=== PATIENT | male | born 1945 | race Caucasian/White ===

== ENCOUNTER 2023-02-23 02:32 | Outpatient (REF) | payer MEDICARE, MEDICAID, SELFPAY ==
[2023-02-23 10:53] LABS: Basophils Absolute Auto 0.1 10^3/uL (0.0-0.1); Eosinophils Absolute Auto 0.1 10^3/uL (0.0-0.7); Hematocrit 35.5 % (42.0-54.0); Hemoglobin 11.9 g/dL (14.0-18.0); Immature Granulocytes Abs Auto 0.01 10^3/uL (0.00-0.03); Immature Granulocytes Pct Auto 0.1 % (0.0-0.5); Mean Corpuscular HGB Conc 33.5 g/dL (29.9-35.2); Mean Corpuscular Hemoglobin 33.1 pg (25.9-34.0); Mean Corpuscular Volume 98.9 fL (80.0-94.0); Monocytes Absolute Auto 0.5 10^3/uL (0.3-0.8); Monocytes Percent Auto 6.5 % (1.7-12.0); Neutrophils Absolute Auto 5.4 10^3/uL (1.4-6.5); Neutrophils Percent Auto 76.4 % (43.0-75.0); Platelet Count 183 10^3/uL (150-450); Red Blood Count 3.59 10^6/uL (4.70-6.10); Red Cell Distribution Width 13.5 % (11.0-15.0); White Blood Count 7.1 10^3/uL (4.0-11.0)
[2023-02-23 11:02] LABS: Calcium 8.4 mg/dL (8.5-10.1); Carbon Dioxide 24.5 mmol/L (21.0-32.0); Chloride 105 mmol/L (98-107); Estimated GFR (African America >60 (>=60); Estimated GFR (Non-African Ame 50 (>=60); Glucose 152 mg/dL (74-106); Potassium 3.5 mmol/L (3.5-5.1); Sodium 139 mmol/L (136-145)
== END 2023-02-23 02:33 | disposition home or self-care (01) ==
LOC: LAB 02:32
PROVIDERS: PCP Family Medicine; Visit Provider Family Medicine
DX: E63.9 Nutritional deficiency, unspecified (principal); R41.3 Other amnesia
CPT/HCPCS: 36415; 80048; 85025

== ENCOUNTER 2023-02-26 01:49 | Outpatient (REF) | payer MEDICARE, MEDICAID, SELFPAY ==
[2023-02-26 10:45] LABS: Basophils Percent Auto 0.5 % (0.2-2.0); Eosinophils Absolute Auto 0.2 10^3/uL (0.0-0.7); Eosinophils Percent Auto 2.2 % (0.9-7.0); Hematocrit 34.1 % (42.0-54.0); Hemoglobin 11.3 g/dL (14.0-18.0); Immature Granulocytes Abs Auto 0.02 10^3/uL (0.00-0.03); Immature Granulocytes Pct Auto 0.3 % (0.0-0.5); Lymphocytes Absolute Auto 1.3 10^3/uL (1.2-3.8); Lymphocytes Percent Auto 17.7 % (20.5-60.0); Mean Corpuscular HGB Conc 33.1 g/dL (29.9-35.2); Mean Corpuscular Hemoglobin 33.1 pg (25.9-34.0); Mean Platelet Volume 9.7 fL (9.5-13.5); Monocytes Absolute Auto 0.5 10^3/uL (0.3-0.8); Neutrophils Absolute Auto 5.5 10^3/uL (1.4-6.5); Neutrophils Percent Auto 72.3 % (43.0-75.0); Platelet Count 171 10^3/uL (150-450); Red Blood Count 3.41 10^6/uL (4.70-6.10); Red Cell Distribution Width 13.7 % (11.0-15.0); White Blood Count 7.6 10^3/uL (4.0-11.0)
[2023-02-26 11:20] LABS: Anion Gap 14.7; BUN Creatinine Ratio 28.8; Calcium 8.6 mg/dL (8.5-10.1); Carbon Dioxide 20.8 mmol/L (21.0-32.0); Chloride 109 mmol/L (98-107); Estimated GFR (African America >60 (>=60); Estimated GFR (Non-African Ame 50 (>=60); Glucose 160 mg/dL (74-106); Potassium 3.5 mmol/L (3.5-5.1); Sodium 141 mmol/L (136-145)
== END 2023-02-26 01:50 | disposition home or self-care (01) ==
LOC: LAB 01:49
PROVIDERS: PCP Family Medicine; Visit Provider Family Medicine
DX: I12.9 Hypertensive chronic kidney disease with stage 1 through stage 4 chronic kidney disease, or unspecified chronic kidney disease (principal); N18.9 Chronic kidney disease, unspecified
CPT/HCPCS: 36415; 80048; 85025

== ENCOUNTER 2023-03-07 01:46 | Outpatient (REF) | payer MEDICARE, MEDICAID, SELFPAY ==
[2023-03-07 08:59] LABS: Anion Gap 14.5; BUN Creatinine Ratio 25.9; Chloride 108 mmol/L (98-107); Estimated GFR (African America 58 (>=60); Estimated GFR (Non-African Ame 48 (>=60); Glucose 112 mg/dL (74-106); Potassium 3.5 mmol/L (3.5-5.1); Sodium 141 mmol/L (136-145)
== END 2023-03-07 01:47 | disposition home or self-care (01) ==
LOC: LAB 01:46
PROVIDERS: PCP Family Medicine; Visit Provider Family Medicine
DX: Z79.899 Other long term (current) drug therapy (principal)
CPT/HCPCS: 36415; 80048

== ENCOUNTER 2023-08-24 03:36 | Outpatient (REF) | payer MEDICARE, MEDICAID, SELFPAY ==
[2023-08-24 08:06] LABS: Basophils Absolute Auto 0.1 10^3/uL (0.0-0.1); Basophils Percent Auto 0.6 % (0.2-2.0); Eosinophils Absolute Auto 0.2 10^3/uL (0.0-0.7); Eosinophils Percent Auto 1.9 % (0.9-7.0); Hematocrit 36.7 % (42.0-54.0); Hemoglobin 11.9 g/dL (14.0-18.0); Immature Granulocytes Abs Auto 0.02 10^3/uL (0.00-0.03); Immature Granulocytes Pct Auto 0.3 % (0.0-0.5); Lymphocytes Absolute Auto 1.1 10^3/uL (1.2-3.8); Lymphocytes Percent Auto 14.4 % (20.5-60.0); Mean Corpuscular HGB Conc 32.4 g/dL (29.9-35.2); Mean Corpuscular Hemoglobin 32.2 pg (25.9-34.0); Mean Corpuscular Volume 99.2 fL (80.0-94.0); Monocytes Absolute Auto 0.8 10^3/uL (0.3-0.8); Monocytes Percent Auto 10.5 % (1.7-12.0); Neutrophils Absolute Auto 5.7 10^3/uL (1.4-6.5); Neutrophils Percent Auto 72.3 % (43.0-75.0); Platelet Count 155 10^3/uL (150-450); Red Cell Distribution Width 12.6 % (11.0-15.0); White Blood Count 7.9 10^3/uL (4.0-11.0)
[2023-08-24 10:28] LABS: Anion Gap 8.8; BUN Creatinine Ratio 20.6; Calcium 8.7 mg/dL (8.5-10.1); Carbon Dioxide 25.9 mmol/L (21.0-32.0); Chloride 104 mmol/L (98-107); Chol HDL Ratio 2.1; Cholesterol 107 mg/dL (<=200); Estimated GFR (African America 49 (>=60); Estimated GFR (Non-African Ame 41 (>=60); Glucose 110 mg/dL (74-106); HDL Cholesterol 52 mg/dL (40-60); Potassium 3.7 mmol/L (3.5-5.1); Sodium 135 mmol/L (136-145); Triglycerides 45 mg/dL (<=150)
== END 2023-08-24 03:37 | disposition home or self-care (01) ==
LOC: LAB 03:36
PROVIDERS: PCP Family Medicine; Visit Provider Family Medicine
DX: E78.5 Hyperlipidemia, unspecified (principal); I10 Essential (primary) hypertension; I12.9 Hypertensive chronic kidney disease with stage 1 through stage 4 chronic kidney disease, or unspecified chronic kidney disease
CPT/HCPCS: 36415; 80048; 80061; 85025

== ENCOUNTER 2023-08-31 02:38 | Outpatient (REF) | payer MEDICARE, MEDICAID, SELFPAY ==
--- OUTSIDE RECORDS SUMMARY | 2023-08-31 02:41 | XMS_ITS | CCD ---
Author Name Unknown Address [id number] [place] [address] Organization [facility] Care Team Providers Care Weeder Name Role Phone ARCHIE HERNÁNDEZ Unavailable Unavailable CARLOS ALCANTAR Unavailable Unavailable ARCHIE HERNÁNDEZ Unavailable Unavailable CARLOS ALCANTAR Unavailable Unavailable NONE, XXXX Primary Care Physician Unavailab JJ Boyer Admitting Unavailable JJ DACOSTA Attending Unavailable ORTIZ, DR GONZALEZ Primary Care Unavailable JJ DACOSTA Consulting Unavailable MIS, DR CORBIN Admitting Unavailable MIS, DR CORBIN Attending Unavailable ORITZ, DR GONZALEZ Primary Care Unavailable MISC, DR CORBIN Consulting Unavailable Mir RING Attending Unavailable Mir RING Attending Unavailable Mir RING Attending Unavailable Unavailable Unavailable Unavailable Allergies Allergy Classification Reported Allergen(s) Allergy Type Date of Onset Reaction(s) Facility (1 source) No Known Medication Allergies; Translations: [No Known Medication Allergies] Propensity to adverse reactions (disorder) [facility] Repository Medications Current Medications Medication Drug Class(es) Dates Sig (Normalized) Sig (Original) acetaminophen 500 mg oral tablet (5 sources) Start: 05-20-2021 take 1 mg by mouth every six hours acetaminophen 500 mg Tab mg tab(s), Oral, q6hr, Refills(s) 0 Start Date: 05/20/21 Status: Ordered Start: 08-15-2019 take 500 mg by mouth every four hours Acetaminophen Active 500 MG Oral Q4H 0 August 15, 2019 12:50pm allopurinol 300 mg oral tablet (5 sources) Xanthine Oxidase Inhibitor Start: 05-20-2021 take 1 mg by mouth once daily allopurinol 300 mg Tab mg tab(s), Oral, Daily, Refills(s) 0 Start Date: 05/20/21 Status: Ordered Start: 08-15-2019 take 300 mg by mouth once ced y Allopurinol Active 300 MG Oral Daily 0 August 15, 2019 12:50pm aluminum hydroxide 40 mg/ml / magnesium hydroxide 40 mg/ml / simethicone 4 mg/ml oral suspension (2 sources) Start: 08-15-2019 take 1 mL by mouth every four hours Alum-Mag Hydroxide-Simeth Active 30 ML Oral Q4H 0 August 15, 2019 12:55pm amLODIPine 10 mg oral tablet (5 sources) Dihydropyridine Calcium Channel Carleen Start: 05-20-2021 take 1 mg by mouth once daily amLODIPine 10 mg Tab mg tab(s), Oral, Daily, Refills(s) 0 Start Date: 05/20/21 Status: Ordered Start: 08-15-2019 take 10 mg by mouth once daily at bedtime Amlodipine Active 10 MG Oral Daily at bedtime 0 August 15, 2019 12:50pm aspirin 81 mg chewable tablet (5 sources) Platelet Aggregation Inhibitor, Nonsteroidal Anti-inflammatory Drug Start: 05-20-2021 aspirin 81 mg Audrey w Tab mg tab(s), Chewed, Daily, Refills(s) 0 Start Date: 05/20/21 Status: Ordered Start: 08-15-2019 take 81 mg by mouth once daily Aspirin Active 81 MG Oral Daily 0 August 15, 2019 12:50pm atorvastatin 10 mg oral tablet (5 sources) HMG-CoA Reductase Inhibitor Start: 05-20-2021 take 1 mg by mouth once daily atorvastatin 10 mg Tab mg tab(s), Oral, Daily, Refills(s) 0 Start Date: 05/20/21 Status: Ordered Start: 08-15-2019 take 80 mg by mouth once daily in the evening Atorvastatin Active 80 MG Oral Every evening 0 August 15, 2019 12:50pm bisacodyl 10 mg rectal suppository (5 sources) Stimulant Laxative Start: 11-14-2021 take 10 mg rectal route once daily as needed for constipation bisacodyl 10 mg Supp 10 mg = 1 supp, Rectal, Daily, PRN for constipation, # 10 supp, Refills(s) 0 Start Date: 11/14/21 Status: Ordered Start: 08-15-2019 take 10 mg rectal ro yarelis once daily Bisacodyl Active 10 MG Rectal Daily 0 August 15, 2019 12:50pm citalopram 20 mg oral tablet (5 sources) Serotonin Reuptake Inhibitor Start: 05-20-2021 take 1 mg by mouth once daily citalopram 20 mg Tab mg tab(s), Oral, Daily, Refills(s) 0 Start Date: 05/20/21 Status: Ordered Start: 08-15-2019 take 20 mg by mouth once daily Citalopram Active 20 MG Oral Daily 0 August 15, 2019 12:50pm clopidogrel 75 mg oral tablet (5 sources) [id number] Platelet Inhibitor Start: 03-19-2023 take 1 mg by mouth once daily Plavix 75 mg Tab mg tab(s), Oral, Daily, Refills(s) 0 Start Date: 03/19/23 Status: Ordered Start: 05-20-2021 take 1 mg by mouth once daily clopidogrel 75 mg Tab mg tab(s), Oral, Daily, Refills(s) 0 Start Date: 05/20/21 Status: Ordered Start: 08-15-2019 take 75 mg by mouth once daily Clopidogrel Active 75 MG Oral Daily 0 August 15, 2019 12:50pm Docusate (5 sources) Start: 05-20-2021 docusate Refil ls(s) 0 Start Date: 05/20/21 Status: Ordered Start: 08-15-2019 take 100 mg by mouth twice elan ly Docusate Sodium Active 100 MG Oral Twice daily 0 August 15, 2019 12:50pm donepezil hydrochloride 10 mg oral tablet (3 sources) Start: 05-20-2021 take 1 mg by mouth once daily at bedtime donepezil 10 mg Tab mg tab(s), Oral, Once a day (at bedtime), Refills(s) 0 Start Date: 05/20/21 Status: Ordered Pepcid (3 sources) Histamine-2 Receptor Antagonist Start: 05-20-2021 Pepcid Refills(s) 0 Start Date: 05/20/21 Status: Ordered furosemide 20 mg oral tablet (3 sources) Loop Diuretic Start: 05-20-2021 take 1 mg by mouth once daily furosemide 20 mg Tab mg tab(s), Oral, Daily, Refills(s) 0 Start Date: 05/20/21 Status: Ordered Mliagros-Tussin DM 10 mg-100 mg/5 mL oral liquid (1 source) Start: 03-19-2023 take 1 mL by mouth every four hours Milagros-Jimin DM 10 mg-100 mg/5 mL oral liquid mL, Oral, q4hr, Refill(s) 0 Start Date: 03/19/23 Status: Ordered hydrALAZINE hydrochloride 10 mg oral tablet (3 sources) Arteriolar Vasodilator Start: 05-20-2021 take 1 mg by mouth four times daily hydrALAZINE 10 mg Tab mg tab(s), Oral, QID, Refills(s) 0 Start Date: 05/20/21 Status: Ordered ammonium lactate 120 mg/ml topical cream (3 sources) Start: 05-20-2021 ammonium lacta te Top 12% Crm Topical, BID, Refill(s) 0 Start Date: 05/20/21 Status: Ordered Start: 05-20-2021 ammonium lacta te Top 12% Crm Topical, BID, Refill(s) 0 Start Date: 05/20/21 Status: Ordered lidocaine hydrochloride 20 mg/ml mucous membrane topical solution (2 sources) Antiarrhythmic, Amide Local Anesthetic Start: 08-15-2019 Lidocaine Hcl Active 15 ML Mucous Membrane Once 0 August 15, 2019 12:55pm loperamide hydrochloride 2 mg oral capsule (1 source) Opioid Agonist Start: 03-19-2023 take 1 mg by mouth every four hours loperamide 2 mg Cap mg cap(s), Oral, q4hr, Refills(s) 0 Start Date: 03/19/23 Status: Ordered losartan potassium 100 mg oral tablet (3 sources) Angiotensin 2 Receptor Carleen Start: 05-20-2021 take 1 mg by mouth once daily losartan 100 mg Tab mg tab(s), Oral, Daily, Refills(s) 0 Start Date: 05/20/21 Status: Ordered Maalox Advanced (3 sources) Start: 05-20-2021 Maalox Advanced Refill(s) 0 Start Date: 05/20/21 Status: Ordered Melatonin (3 sources) Start: 05-20-2021 melatonin Once a day (at bedtime), Refills(s) 0 Start Date: 05/20/21 Status: Ordered 24 hr metoprolol succinate 50 mg extended release oral tablet (3 sources) beta-Adrenergic Carleen Start: 05-20-2021 take 1 mg by mouth once daily metoprolol 50 mg ER Tab mg tab(s), Oral, Daily, Refills(s) 0 Start Date: 05/20/21 Status: Ordered Start: 08-15-2019 take 75 mg by mouth twice ced y Metoprolol Tartrate Active 75 MG Oral Twice daily 0 August 15, 2019 12:50pm Multivitamin With Folic Acid (2 sources) Start: 08-15-2019 take 1 tablet by mouth once daily Multivitamin With Folic Acid Active 1 TAB Oral Daily 0 August 15, 2019 12:50pm potassium chloride 20 meq extended release oral tablet (3 sources) Start: 05-20-2021 take 1 tablet by mouth twice daily potassium chloride 20 mEq ER Tab mEq tab(s), Oral, BID, Refills(s) 0 Start Date: 05/20/21 Status: Ordered Senna Leaves (1 source) Start: 05-20-2021 take 1 mg by mouth once daily at bedtime senna 8.6 mg Tab mg tab(s), Oral, Once a day (at bedtime), Refills(s) 0 Start Date: 05/20/21 Status: Ordered sennosides, retirement 8.6 mg oral tablet (4 sources) Start: 05-20-2021 take 1 mg by mouth once daily at bedtime senna 8.6 mg Tab mg tab(s), Oral, Once a day (at bedtime), Refills(s) 0 Start Date: 05/20/21 Status: Ordered Start: 08-15-2019 take 2 tablets by [facility] once daily Sennosides Active 2 TAB Oral DAILY@12 0 August 15, 2019 12:55pm terazosin 1 mg oral capsule (2 sources) alpha-Adrenergic Carleen Start: 08-15-2019 take 1 mg by mouth twice daily Terazosin Active 1 MG Oral Twice daily 0 August 15, 2019 12:50pm 24 hr tolterodine tartrate 4 mg extended release oral capsule (1 source) Cholinergic Muscarinic Antagonist Start: 03-19-2023 take 1 mg by mouth once daily tolterodine 4 mg Cap-ER mg cap(s), Oral, Daily, Refills(s) 0 Start Date: 03/19/23 Status: Ordered traZODone hydrochloride 100 mg oral tablet (5 sources) Serotonin Reuptake Inhibitor Start: 05-20-2021 take 1 mg by mouth twice daily traZODONE 100 mg Tab mg tab(s), Oral, BID, Refills(s) 0 Start Date: 05/20/21 Status: Ordered Start: 08-15-2019 take 50 mg by mouth once daily at bedtime Trazodone Active 50 MG Oral Daily at bedtime 0 August 15, 2019 12:55pm Vitamin B 12 (6 sources) Vitamin B12 Start: 03-19-2023 Vitamin B12 Re fills(s) 0 Start Date: 03/19/23 Status: Ordered Start: 05-20-2021 Vitamin B12 Re fills(s) 0 Start Date: 05/20/21 Status: Ordered Start: 08-15-2019 take 1000 ug by mout h once daily in the morning Cyanocobalamin (Vitamin B-12) Active 1000 MCG Oral Every morning 0 August 15, 2019 12:50pm Problems Problem Classification Problem Date Documented Date Episodic/Chronic Acute cerebrovascular disease (3 sources) Cerebral infarction, unspecified; Translations: [Cerebrovascular accident] Onset: 8 Chronic Administrative/social admission (2 sources) Other reduced mobility; Translations: [Other reduced mobility] Episodic Blindness and vision defects (2 sources) Blurring of visual image; 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] Episodic Chronic kidney disease (5 sources) Chronic kidney disease stage 3; Translations: [Chronic kidney disease stage 4] 05-20-2021 Chronic Coronary atherosclerosis and other heart disease (1 source) Coronary atherosclerosis and other heart disease Onset: 8 Crushing injury or internal injury (2 sources) Injury of kidney; Translations: [Acute kidney injury] Episodic Delirium dementia and amnestic and other cognitive disorders (5 sources) Dementia; Translations: [Rapidly progressive dementia] 05-20-2021 Chronic Disorders of lipid metabolism (3 sources) Hyperlipidemia 05-20-2021 Chronic Esophageal disorders (3 sources) Gastroesophageal reflux disease 05-20-2021 Chronic Essential hypertension (6 sources) Essential (primary) hypertension; Translations: [Hypertensive disorder] Onset: 8 05-20-2021 Chronic Essential hypertension (2 sources) Essential hypertension Onset: 8 Fluid and electrolyte disorders (2 sources) Acute hypokalemia; Translations: [Diuretic-induced hypokalemia] Episodic Genitourinary symptoms and ill-defined conditions (10 sources) Incontinence without sensory awareness; 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] Onset: 2 Chronic Genitourinary symptoms and ill-defined conditions (4 sources) Increased frequency of urination; Translations: [Frequency of micturition] Onset: 2 Episodic Gout and other crystal arthropathies (4 sources) Chronic gout due to renal impairment, multiple sites, without tophus (tophi); Translations: [CHR GOUT RENL IMPR MX SITE NO TOPH] Onset: 3 Chronic Hyperplasia of prostate (11 sources) Benign prostatic hyperplasia; Translations: [Benign prostatic hypertrophy with outflow obstruction] Onset: 2 Chronic Hypertension with complications and secondary hypertension (4 sources) Chronic kidney disease due to hypertension; Translations: [Hypertensive urgency ] Chronic Mood disorders (2 sources) Depressive disorder; 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 Nutritional deficiencies (2 sources) Vitamin B12 deficiency (non anemic); Translations: [Cobalamin C disease] Episodic Other and ill-defined heart disease (3 sources) Heart disease 05-20-2021 Chronic Other circulatory disease (2 sources) History of cerebrovascular accident; Translations: [History of recurrent transient ischemic attacks] Episodic Other connective tissue disease (3 sources) Muscle weakness 05-20-2021 Episodic Other diseases of kidney and ureters (1 source) Urinary tract obstruction; Translations: [Other obstructive and reflux uropathy] Onset: 2 Episodic Other lower respiratory disease (2 sources) Dyspnea; Translations: [Increasing shortness of breath] Episodic Residual codes; unclassified (2 sources) Altered mental status; Translations: [Acute alteration in mental status] Episodic Residual codes; unclassified (2 sources) Pain; Translations: [Diffuse pain] Episodic Residual codes; unclassified (3 sources) Amnesia 05-20-2021 Episodic Residual codes; unclassified (3 sources) Insomnia 05-20-2021 Episodic Transient cerebral ischemia (2 sources) Transient cerebral ischemia; Translations: [Transient ischemic attack] Chronic Unclassified (1 source) Abnormal electrocardiogram [ECG] [EKG] / R94.31(ICD-9) Onset: 8 Unclassified (1 source) Encounter for preprocedural cardiovascular examination / Z01.810(ICD-9) Onset: 8 Unclassified (2 sources) Cerebral infarction, unspecified / I63.9(ICD-9) Onset: 8 Unclassified (1 source) Hypokalemia / E87.6(ICD-9) Onset: 8 Unclassified (1 source) Shortness of breath / R06.02(ICD-9) Onset: 8 Unclassified (1 source) Pure hypercholesterolemia, unspecified / E78.00(ICD-9) Onset: 8 Unclassified (1 source) Other fatigue / R53.83(ICD-9) Onset: 8 Unclassified (1 source) Unspecified osteoarthritis, unspecified site / M19.90(ICD-9) Onset: 8 Unclassified (2 sources) Patient encounter status; Translations: [Encounter for deep vein thrombosis (DVT) prophylaxis] Results Test Name Value Interpretation Reference Range Facility [facility]20 [facility] [id number] D:127 Normal [facility] Ambulatory Visit Summaryon 0 03-19-2023 Ambulatory Visit Summary BRAD HUTCHISON Doretha :1945 Visit Date:03/19/2023 Ambulatory Visit Instructions Your Diagnosis BPH with urinary obstruction Urge incontinence Incontinence without sensory awareness Your Care Team Attending Physician - ELISA HALEY, Mir Bender Primary Care Physician - NONE, XXXX This Is Your Medications List Contact prescribing physician if questions or concerns acetaminophen (acetaminophen 500 mg Tab) allopurinol (allopurinol 300 mg Tab) amlodipine (amLODIPine 10 mg Tab) ammonium lactate topical (ammonium lactate Top 12% Crm) aspirin (aspirin 81 mg Chew Tab) atorvastatin (atorvastatin 10 mg Tab) bisacodyl (bisacodyl 10 mg Supp) calcium carbonate-simethicone (Maalox Advanced) citalopram (citalopram 20 mg Tab) clopidogrel (Plavix 75 mg Tab) cyanocobalamin (Vitamin B12) cyanocobalamin (Vitamin B12) dextromethorphan-guaife nesin (Milagros-Tussin DM 10 mg-100 mg/5 mL oral liquid) docusate donepezil (donepezil 10 mg Tab) famotidine (Pepcid) furosemide (furosemide 20 mg Tab) hydrALAZINE (hydrALAZINE 10 mg Tab) loperamide (loperamide 2 mg Cap) losartan (losartan 100 mg Tab) melatonin potassium chloride (potassium chloride 20 mEq ER Tab) senna (senna 8.6 mg Tab) tolterodine (tolterodine 4 mg Cap-ER) trazodone (traZODONE 100 mg Tab) Procedures Performed TURP - Redo transurethral resection of prostate (06/30/2021), TURP - Transurethral resection of prostate (01/29/2018), UDS - Urodynamics (12/25/2017). Discharge Vitals Heart Rate (Peripheral) 68 Respiratory Rate 16 Blood Pressure 106/70 Height 173 cm Height 68 in Weight 92.4 kg Weight 203.28 lb BMI 30.87 What to do next You Need to Schedule the Following Appointments Follow Up with ELISA HALEY, FATOUMATA Gabriel When: Comments: 1 year Where: [facility] [address], [place] [address] [phone] Medications What How Much When Instructions Unchanged acetaminophen (acetaminophen 500 mg Tab) By Mouth Every 6 hours Contact prescribing physician if questions or concerns Unchanged allopurinol (allopurinol 300 mg Tab) By Mouth Every day Contact prescribing physician if questions or concerns Unchanged amlodipine (amLODIPine 10 mg Tab) By Mouth Every day Contact prescribing physician if questions or concerns Unchanged ammonium lactate topical (ammonium lactate Top 12% Crm) Topical 2 times a day Contact prescribing physician if questions or concerns Unchanged aspirin (aspirin 81 mg Chew Tab) Chewed Every day Contact prescribing physician if questions or concerns Unchanged atorvastatin (atorvastatin 10 mg Tab) By Mouth Every day Contact prescribing physician if questions or concerns Unchanged bisacodyl (bisacodyl 10 mg Supp) 1 Suppositories By rectum Every day as needed for for constipation Contact prescribing physician if questions or concerns Unchanged calcium carbonate-simethicone (Maalox Advanced) Contact prescribing physician if questions or concerns Unchanged citalopram (citalopram 20 mg Tab) By Mouth Every day Contact prescribing physician if questions or concerns Unchanged clopidogrel (Plavix 75 mg Tab) By Mouth Every day Contact prescribing physician if questions or concerns Unchanged cyanocobalamin (Vitamin B12) Contact prescribing physician if questions or concerns Unchanged cyanocobalamin (Vitamin B12) Contact prescribing physician if questions or concerns Unchanged dextromethorphan-guaife nesin (Milagros-Tussin DM 10 mg-100 mg/ 5 mL oral liquid) By Mouth Every 4 hours Contact prescribing physician if questions or concerns Unchanged docusate Contact prescribing physician if questions or concerns Unchanged donepezil (donepezil 10 mg Tab) By Mouth Once a day (at bedtime) Contact prescribing physician if questions or concerns Unchanged famotidine (Pepcid) Contact prescribing physician if questions or concerns Unchanged furosemide (furosemide 20 mg Tab) By Mouth Every day Contact prescribing physician if questions or concerns Unchanged hydrALAZINE (hydrALAZINE 10 mg Tab) By Mouth 4 times a day Contact prescribing physician if questions or concerns Unchanged loperamide (loperamide 2 mg Cap) By Mouth Every 4 hours Contact prescribing physician if questions or concerns Unchanged losartan (losartan 100 mg Tab) By Mouth Every day Contact prescribing physician if questions or concerns Unchanged melatonin Once a day (at bedtime) Contact prescribing physician if questions or concerns Unchanged potassium chloride (potassium chloride 20 mEq ER Tab) By Mouth 2 times a day Contact prescribing physician if questions or concerns Unchanged senna (senna 8.6 mg Tab) By Mouth Once a day (at bedtime) Contact prescribing physician if questions or concerns Unchanged tolterodine (tolterodine 4 mg Cap-ER) By Mouth Every day Contact prescribing physician if questions or concerns Unchanged trazodone (traZODONE 100 mg Tab) By Mouth 2 times a day Contact prescribing physician (more content not included)... Normal [facility] Patient Educationon 03-19-20 23 Patient Education Urology Benign Prostatic Hyperplasia Benign prostatic hyperplasia (BPH) is an enlarged prostate gland that is caused by the normal aging process. The prostate may get bigger as a man gets older. The condition is not caused by cancer. The prostate is a walnut-sized gland that is involved in the production of semen. It is located in front of the rectum and below the bladder. The bladder stores urine. The urethra carries stored urine out of the body. An enlarged prostate can press on the urethra. This can make it harder to pass urine. The buildup of urine in the bladder can cause infection. Back pressure and infection may progress to bladder damage and kidney (renal) failure. What are the causes? This condition is part of the normal aging process. However, not all men develop problems from this condition. If the prostate enlarges away from the urethra, urine flow will not be blocked. If it enlarges toward the urethra and compresses it, there will be problems passing urine. What increases the risk? This condition is more likely to develop in men older than 50 years. What are the signs or symptoms? Symptoms of this condition include: ? Getting up often during the night to urinate. ? Needing to urinate frequently during the day. ? Difficulty starting urine flow. ? Decrease in size and strength of your urine stream. ? Leaking (dribbling) after urinating. ? Inability to pass urine. This needs immediate treatment. ? Inability to completely empty your bladder. ? Pain when you pass urine. This is more common if there is also an infection. ? Urinary tract infection (UTI). How is this diagnosed? This condition is diagnosed based on your medical history, a physical exam, and your symptoms. Tests will also be done, such as: ? A post-void bladder scan. This measures any amount of urine that may remain in your bladder after you finish urinating. ? A digital rectal exam. In a rectal exam, your health care provider checks your prostate by putting a lubricated, gloved finger into your rectum to feel the back of your prostate gland. This exam detects the size of your gland and any abnormal lumps or growths. ? An exam of your urine (urinalysis). ? A prostate specific antigen (PSA) screening. This is a blood test used to screen for prostate cancer. ? An ultrasound. This test uses sound waves to electronically produce a picture of your prostate gland. Your health care provider may refer you to a specialist in kidney and prostate diseases (urologist). How is this treated? Once symptoms begin, your health care provider will monitor your condition (active surveillance or watchful waiting). Treatment for this condition will depend on the severity of your condition. Treatment may include: ? Observation and yearly exams. This may be the only treatment needed if your condition and symptoms are mild. ? Medicines to relieve your symptoms, including: ? Medicines to shrink the prostate. ? Medicines to relax the muscle of the prostate. ? Surgery in severe cases. Surgery may include: ? Prostatectomy. In this procedure, the prostate tissue is removed completely through an open incision or with a laparoscope or robotics. ? Transurethral resection of the prostate (TURP). In this procedure, a tool is inserted through the opening at the tip of the penis (urethra). It is used to cut away tissue of the inner core of the prostate. The pieces are removed through the same opening of the penis. This removes the blockage. ? Transurethral incision (TUIP). In this procedure, small cuts are made in the prostate. This lessens the prostate's pressure on the urethra. ? Transurethral microwave thermotherapy (TUMT). This procedure uses microwaves to create heat. The heat destroys and removes a small amount of prostate tissue. ? Transurethral needle ablation (TUNA). This procedure uses radio frequencies to destroy and remove a small amount of prostate tissue. ? Interstitial laser coagulation (ILC). This procedure uses a laser to destroy and remove a small amount of prostate tissue. ? Transurethral electrovaporization (TUVP). This procedure uses electrodes to destroy and remove a small amount of prostate tissue. ? Prostatic urethral lift. This procedure inserts an implant to push the lobes of the prostate away from the urethra. Follow these instructions at home: ? Take [id number] and prescription medicines only as told by your health care provider. ? Monitor your symptoms for any changes. Contact your health care provider with any changes. ? Avoid drinking large amounts of liquid before going to bed or out in public. ? Avoid or reduce how much caffeine or alcohol you drink. ? Give yourself time when you urinate. ? Keep all follow-up visits. This is important. Contact a health care provider if: ? You have unexplained back pain. ? Your symptoms do not get better with treatment. ? You develop side effects from the medicine (more content not included)... Normal [facility] Urology Office/Clinic Noteon 03-19-2023 Urology Office/Clinic Note Chief Complaint urge incontinence HPI Staff 4 month f/u. Previous dx of BPH with urinary obstruction (TURP 06/30/21), urge incontinence and incontinence without sensory awareness. Tolterodine 4mg ER QD at bed time. Dysuria: no Incomplete bladder emptying: no Hematuria: no Frequency: no Urgency: no Nocturia: 1-2x Stream: no Leaking: pt states no leaking at all Post void dripping: no Wearing pads/ Depends: wears depends Urge incontinence: pt states not having accidents anymore Stress incontinence: no Incontinence without Sensory Awareness: no Abdominal pain: no Flank pain: no Sexual complaints: no History of Present Illness Tests reviewed: none I have reviewed the previous health record information and history for this patient from Dr. Ring. I have reviewed and verified the staff HPI to be accurate for this encounter. There have been no associated fever, chills, flank pain, or blood in the urine. Denies any urinary infections since last encounter. Review of Systems PHQ Score Initial Depression Screen Score: 0 ROS - Provider Constitutional: denies weight loss, denies hot flashes. Eyes: denies eye problems. Gastrointestinal: denies nausea, denies vomiting. Cardiovascular: denies chest pain or angina. Integumentary: no dryness Musculoskeletal: denies musculoskeletal symptoms. ENMT: denies otolaryngeal symptoms. Respiratory: no shortness of breath. Heme/Lymph: denies easy bleeding tendency, denies easy bruising tendency. Psychiatric: no confusion, no anxiety. Genitourinary: See HPI. Physical Exam Vitals & Measurements HR: 68(Peripheral) RR: 16 BP: 106/70 HT: 68 in HT: 173 cm WT: 92.4 kg WT: 203.28 lb BMI: 30.87 General Appearance: alert, no distress, well nourished, well developed male. Genitourinary: normal scrotum, normal testes, normal urethra, normal epididymis, normal vas deferens/spermatic cord. Flank Pain: none. Bladder: nonpalpable. Assessment/Plan 1. BPH with urinary obstruction (N40.1: Benign prostatic hyperplasia with lower urinary tract symptoms) S/p TURP 06/30/21. Pt is not on any BPH medications at this time. 2. Urge incontinence (N39.41: Urge incontinence) Pt began taking Tolterodine 4mg ER [1] and will continue this medication. Denies any recent accidents or urgency. No sample provided for UA today. Follow up in 1 year. All questions/concerns were discussed. Pt to call the office if he encounters any issues prior. Pt acknowledges understanding. 3. 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 Reports he takes himself to the bathroom. Patient does get up twice nightly and makes it to the restroom. Spoke to usp staff ([facility]), nurse stated patient is always incontinent and rarely ever voids on his own. Follow-up With When Contact Information ELISA HALEY, Mir Bender, URL [facility] [address], [place] [address]- [phone] Additional Instructions: 1 year Patient Education Benign Prostatic Hyperplasia I, Barb Valentin, personally scribed for Dr. Ring on 03/19/2023 10:54:56. . Documentation recorded by the scribe, Barb Valentin, accurately reflects the services(s) I performed and decisions made by me. Authenticated by Dr. Ring on 03/19/2023 11:00:12. Problem List/Past Medical History Ongoing BPH with urinary obstruction Incontinence without sensory awareness Urge incontinence Urinary retention Historical Amnesia BPH - benign prostatic hyperplasia CKD stage 4 Dementia GERD - Gastro-esophageal reflux disease Heart disease Hyperlipidemia Hypertension Insomnia Muscle weakness Procedure/Surgical History TURP - Redo transurethral resection of prostate (06/30/2021), TURP - Transurethral resection of prostate (01/29/2018), UDS - Urodynamics (12/25/2017). Medications acetaminophen 500 mg Tab, Oral, q6hr allopurinol 300 mg Tab, Oral, Daily amLODIPine 10 mg Tab, Oral, Daily ammonium lactate Top 12% Crm, Topical, BID aspirin 81 mg Chew Tab, Chewed, Daily atorvastatin 10 mg Tab, Oral, Daily bisacodyl 10 mg Supp, 10 mg= 1 supp, Rectal, Daily, PRN citalopram 20 mg Tab, Oral, Daily docusate donepezil 10 mg Tab, Oral, Once a day (at bedtime) furosemide 20 mg Tab, Oral, Daily Milagros-Tussin DM 10 mg-100 mg/5 mL oral liquid, Oral, q4hr hydrALAZINE 10 mg Tab, Oral, QID loperamide 2 mg Cap, Oral, q4hr losartan 100 mg Tab, Oral, Daily Maalox Advanced melatonin, Once a day (at bedtime) Pepcid Plavix 75 mg Tab, Oral, Daily potassium chloride 20 mEq ER Tab, Oral, BID senna 8.6 mg Tab, Oral, Once a day (at bedtime) tolterodine 4 mg Cap-ER, Oral, Daily traZODONE 100 mg Tab, Oral, BID Vitamin B12 Vitamin B12 Allergies No Known Medication Allergies Social History Tobacco Never (less than 100 in lifetime) Tobacco Use:. Never Smokeless Tobacco Use:., 03 (more content not included)... Normal [facility] Comment on above: Result Comment: Elec tronically Signed By: Mir RING MD\.br\Date and Time Signed: 03/19/23 11:00 EDT\.br\Electronically Co-Signed By: Barb Valentin\.br\Date and Time Co-Signed: 03/19/23 10:55 EDT Ambulatory Visit Summaryon 0 11-17-2022 Ambulatory Visit Summary BRAD HUTCHISON :1945 Visit Date:11/17/2022 Ambulatory Visit Instructions Your Diagnosis BPH with urinary obstruction Urge incontinence Incontinence without sensory awareness Your Care Team Attending Physician - Mir RING MD Primary Care Physician - NONE, XXXX This Is Your Medications List Contact prescribing physician if questions or concerns acetaminophen (acetaminophen 500 mg Tab) allopurinol (allopurinol 300 mg Tab) amlodipine (amLODIPine 10 mg Tab) ammonium lactate topical (ammonium lactate Top 12% Crm) aspirin (aspirin 81 mg Chew Tab) atorvastatin (atorvastatin 10 mg Tab) bisacodyl (bisacodyl 10 mg Supp) calcium carbonate-simethicone (Maalox Advanced) citalopram (citalopram 20 mg Tab) clopidogrel (clopidogrel 75 mg Tab) cyanocobalamin (Vitamin B12) docusate donepezil (donepezil 10 mg Tab) famotidine (Pepcid) furosemide (furosemide 20 mg Tab) hydrALAZINE (hydrALAZINE 10 mg Tab) losartan (losartan 100 mg Tab) melatonin potassium chloride (potassium chloride 20 mEq ER Tab) senna (senna 8.6 mg Tab) trazodone (traZODONE 100 mg Tab) Procedures Performed TURP - Redo transurethral resection of prostate (06/30/2021), TURP - Transurethral resection of prostate (01/29/2018), UDS - Urodynamics (12/25/2017). Discharge Vitals Heart Rate (Peripheral) 68 Respiratory Rate 16 Blood Pressure 128/87 Height 173 cm Height 68 in Weight 93 kg Weight 204.6 lb BMI 31.07 What to do next You Need to Schedule the Following Appointments Follow Up with ELISA HALEY, FATOUMATA Gabriel When: Where: [address] [place], [place] [id number]- Medications What How Much When Instructions Unchanged acetaminophen (acetaminophen 500 mg Tab) By Mouth Every 6 hours Contact prescribing physician if questions or concerns Unchanged allopurinol (allopurinol 300 mg Tab) By Mouth Every day Contact prescribing physician if questions or concerns Unchanged amlodipine (amLODIPine 10 mg Tab) By Mouth Every day Contact prescribing physician if questions or concerns Unchanged ammonium lactate topical (ammonium lactate Top 12% Crm) Topical 2 times a day Contact prescribing physician if questions or concerns Unchanged aspirin (aspirin 81 mg Chew Tab) Chewed Every day Contact prescribing physician if questions or concerns Unchanged atorvastatin (atorvastatin 10 mg Tab) By Mouth Every day Contact prescribing physician if questions or concerns Unchanged bisacodyl (bisacodyl 10 mg Supp) 1 Suppositories By rectum Every day as needed for for constipation Contact prescribing physician if questions or concerns Unchanged calcium carbonate-simethicone (Maalox Advanced) Contact prescribing physician if questions or concerns Unchanged citalopram (citalopram 20 mg Tab) By Mouth Every day Contact prescribing physician if questions or concerns Unchanged clopidogrel (clopidogrel 75 mg Tab) By Mouth Every day Contact prescribing physician if questions or concerns Unchanged cyanocobalamin (Vitamin B12) Contact prescribing physician if questions or concerns Unchanged docusate Contact prescribing physician if questions or concerns Unchanged donepezil (donepezil 10 mg Tab) By Mouth Once a day (at bedtime) Contact prescribing physician if questions or concerns Unchanged famotidine (Pepcid) Contact prescribing physician if questions or concerns Unchanged furosemide (furosemide 20 mg Tab) By Mouth Every day Contact prescribing physician if questions or concerns Unchanged hydrALAZINE (hydrALAZINE 10 mg Tab) By Mouth 4 times a day Contact prescribing physician if questions or concerns Unchanged losartan (losartan 100 mg Tab) By Mouth Every day Contact prescribing physician if questions or concerns Unchanged melatonin Once a day (at bedtime) Contact prescribing physician if questions or concerns Unchanged potassium chloride (potassium chloride 20 mEq ER Tab) By Mouth 2 times a day Contact prescribing physician if questions or concerns Unchanged senna (senna 8.6 mg Tab) By Mouth Once a day (at bedtime) Contact prescribing physician if questions or concerns Unchanged trazodone (traZODONE 100 mg Tab) By Mouth 2 times a day Contact prescribing physician if questions or concerns Allergies No Known Medication Allergies Problems Ongoing - Any problem that you are currently receiving treatment for. BPH with urinary obstruction Incontinence without sensory awareness Urge incontinence Urinary retention Historical - Any problem that you are no longer receiving treatment for. Amnesia BPH - benign prostatic hyperplasia CKD stage 4 Dementia GERD - Gastro-esophageal reflux disease Heart disease Hyperlipidemia Hypertension Insomnia Muscle weakness Education Materials Urinary Incontinence Urinary incontinence refers to a condition in which a person is unable to control where and when to pass urine. A person with this condit (more content not included)... Normal [facility] Recordson 11-17 [facility] Records [id number] D:127 Normal [facility] Patient Educationon 11-18-19 Patient Education Urology Urinary Incontinence Urinary incontinence refers to a condition in which a person is unable to control where and when to pass urine. A person with this condition will urinate when he or she does not mean to (involuntarily). What are the causes? This condition may be caused by: ? Medicines. ? Infections. ? Constipation. ? Overactive bladder muscles. ? Weak bladder muscles. ? Weak pelvic floor muscles. These muscles provide support for the bladder, intestine, and, in women, the uterus. ? Enlarged prostate in men. The prostate is a gland near the bladder. When it gets too big, it can pinch the urethra. With the urethra blocked, the bladder can weaken and lose the ability to empty properly. ? Surgery. ? Emotional factors, such as anxiety, stress, or post-traumatic stress disorder (PTSD). ? Pelvic organ prolapse. This happens in women when organs shift out of place and into the vagina. This shift can prevent the bladder and urethra from working properly. What increases the risk? The following factors may make you more likely to develop this condition: ? Older age. ? Obesity and physical inactivity. ? and childbirth. ? Menopause. ? Diseases that affect the nerves or spinal cord (neurological diseases). ? Long-term (chronic) coughing. This can increase pressure on the bladder and pelvic floor muscles. What are the signs or symptoms? Symptoms may vary depending on the type of urinary incontinence you have. They include: ? A sudden urge to urinate, but passing urine involuntarily before you can get to a bathroom (urge incontinence). ? Suddenly passing urine with any activity that forces urine to pass, such as coughing, laughing, exercise, or sneezing (stress incontinence). ? Needing to urinate often, but urinating only a small amount, or constantly dribbling urine (overflow incontinence). ? Urinating because you cannot get to the bathroom in time due to a physical disability, such as arthritis or injury, or communication and thinking problems, such as Alzheimer disease (functional incontinence). How is this diagnosed? This condition may be diagnosed based on: ? Your medical history. ? A physical exam. ? Tests, such as: ? Urine tests. ? X-rays of your kidney and bladder. ? Ultrasound. ? CT scan. ? Cystoscopy. In this procedure, a health care provider inserts a tube with a light and camera (cystoscope) through the urethra and into the bladder in order to check for problems. ? Urodynamic testing. These tests assess how well the bladder, urethra, and sphincter can store and release urine. There are different types of urodynamic tests, and they vary depending on what the test is measuring. To help diagnose your condition, your health care provider may recommend that you keep a log of when you urinate and how much you urinate. How is this treated? Treatment for this condition depends on the type of incontinence that you have and its cause. Treatment may include: ? Lifestyle changes, such as: ? Quitting smoking. ? Maintaining a healthy weight. ? Staying active. Try to get 150 minutes of moderate-intensity exercise every week. Ask your health care provider which activities are safe for you. ? Eating a healthy diet. ? Avoid high-fat foods, like fried foods. ? Avoid refined carbohydrates like white bread and white rice. ? Limit how much alcohol and caffeine you drink. ? Increase your fiber intake. Foods such as fresh fruits, vegetables, beans, and whole grains are healthy sources of fiber. ? Pelvic floor muscle exercises. ? Bladder training, such as lengthening the amount of time between bathroom breaks, or using the bathroom at regular intervals. ? Using techniques to suppress bladder urges. This can include distraction techniques or controlled breathing exercises. ? Medicines to relax the bladder muscles and prevent bladder spasms. ? Medicines to help slow or prevent the growth of a man's prostate. ? Botox injections. These can help relax the bladder muscles. ? Using pulses of electricity to help change bladder reflexes (electrical nerve stimulation). ? For women, using a medical coding manager to prevent urine leaks. This is a small, tampon-like, disposable device that is inserted into the urethra. ? Injecting collagen or carbon beads (bulking agents) into the urinary sphincter. These can help thicken tissue and close the bladder opening. ? Surgery. Follow these instructions at home: Lifestyle ? Limit alcohol and caffeine. These can fill your bladder quickly and irritate it. ? Keep yourself clean to help prevent odors and skin damage. Ask your doctor about special skin creams and cleansers that can protect the skin from urine. ? Consider wearing pads or adult diapers. Make sure to change them regularly, and always change them right after experiencing incontinence. General instructions ? Take nhte-qwz-cwyqhxx and prescription medicines only as (more content not included)... Normal [facility] Urology Office/Clinic Noteon 11-17-2022 Urology Office/Clinic Note Chief Complaint 1yr follow up HPI Staff 1yr to BPH Incontinence w/o sensory awareness & Frequency. *Flomax therapy was DC'd at time of last encounter Pt states he does wear a brief. Denies incontinence/leaking. Did call [facility], Spoke to pt's nurse, stated pt is constantly incontinent and rarely ever voids on his own. Does admit to wetting the bed. Does not get/feel the urge to void when sleeping. Denies complaints with urinary stream. Per pt's nurse, no urinary concerns at this time. History of Present Illness Tests reviewed: None. I have reviewed the previous health record information and history for this patient from Dr. Ring. I have reviewed and verified the staff HPI to be accurate for this encounter. There have been no associated fever, chills, flank pain, or blood in the urine. Denies any urinary infections since last encounter. Review of Systems PHQ Score Initial Depression Screen Score: 0 ROS - Provider Constitutional: denies weight loss, denies hot flashes. Eyes: denies eye problems. Gastrointestinal: denies nausea, denies vomiting. Cardiovascular: denies chest pain or angina. Integumentary: no dryness Musculoskeletal: denies musculoskeletal symptoms. ENMT: denies otolaryngeal symptoms. Respiratory: no shortness of breath. Heme/Lymph: denies easy bleeding tendency, denies easy bruising tendency. Psychiatric: no confusion, no anxiety. Genitourinary: denies dysuria, denies hematuria, denies discharge, denies urinary frequency, denies urinary hesitancy, denies nocturia, denies incontinence, denies genital sores, denies decreased libido, and denies erectile dysfunction. Physical Exam Vitals & Measurements HR: 68(Peripheral) RR: 16 BP: 128/87 HT: 68 in HT: 173 cm WT: 93 kg WT: 204.6 lb BMI: 31.07 General Appearance: alert, no distress, well nourished, well developed male. Genitourinary: normal scrotum, normal testes, normal urethra, normal epididymis, normal vas deferens/spermatic cord. Flank Pain: none. Bladder: nonpalpable. Assessment/Plan 1. BPH with urinary obstruction (N40.1: Benign prostatic hyperplasia with lower urinary tract symptoms) S/p TURP 06/30/21. Patient is not on any BPH medications. He does not stand when urinating, feels he is empty. No urine sample provided today. 2. Urge incontinence (N39.41: Urge incontinence) See #3. Patient feels if he had more time to make it to the bathroom he would not leak as much. Orders written to start Tolterodine 4mg ER daily. Discussed the medication side effects, and the patient will monitor closely for these, as well as for symptom improvement. If severe side effects occur, the medication should be stopped and the office notified. -Follow up in 4 months to reassess leakage. Discussed the medication side effects, and the patient will monitor closely for these, as well as for symptom improvement. If severe side effects occur, the medication should be stopped and the office notified. 3. 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 Reports he takes himself to the bathroom. Does admit to wetting the bed. Patient does not get or feel the urge to void when sleeping. Spoke to usp staff ([facility]), nurse stated patient is always incontinent and rarely ever voids on his own. Follow-up With When Contact Information ELISA HALEY, Mir Bender, URL [address] [place] [phone]- Additional Instructions: 4 months to starting new medication Patient Education Urinary Incontinence I, Sera Calhoun, personally scribed for Dr. Ring on 11/17/2022 11:33:39. . Documentation recorded by the scribe, Sera Calhoun, accurately reflects the services(s) I performed and decisions made by me. Authenticated by Dr. Ring on 11/17/2022 11:36:08. Problem List/Past Medical History Ongoing BPH with urinary obstruction Incontinence without sensory awareness Urge incontinence Urinary retention Historical Amnesia BPH - benign prostatic hyperplasia CKD stage 4 Dementia GERD - Gastro-esophageal reflux disease Heart disease Hyperlipidemia Hypertension Insomnia Muscle weakness Procedure/Surgical History TURP - Redo transurethral resection of prostate (06/30/2021), TURP - Transurethral resection of prostate (01/29/2018), UDS - Urodynamics (12/25/2017). Medications acetaminophen 500 mg Tab, Oral, q6hr allopurinol 300 mg Tab, Oral, Daily amLODIPine 10 mg Tab, Oral, Daily ammonium lactate Top 12% Crm, Topical, BID aspirin 81 mg Chew Tab, Chewed, Daily atorvastatin 10 mg Tab, Oral, Daily bisacodyl 10 mg Supp, 10 mg= 1 supp, Rectal, Daily, PRN citalopram 20 mg Tab, Oral, Daily clopidogrel 75 mg Tab, Oral, Daily docusate donepezil 10 mg Tab, Oral, Once a day (at bedtime) furosemide 20 mg Tab, Oral, Daily hydrALAZINE 10 mg Tab, Oral, QID losartan 1 (more content not included)... Normal [facility] Comment on above: Result Comment: Elec tronically Signed By: Mir RING MD\.br\Date and Time Signed: 11/17/22 11:36 EDT\.br\Electronically Co-Signed By: Sera Calhoun.nikki\Date and Time Co-Signed: 11/17/22 11:34 EDT URIC ACID SERUMon 10-27-2022 Urate [Mass/Vol] 4.2 mg/dL Normal 3.5-7.2 [facility] Comment on above: Performed By: #### U VICTOR HUGO #### [facility] [address] [address] [address] Neymar Guy URIC ACID SERUMon 07-03-2022 Urate [Mass/Vol] 4.3 mg/dL Normal 3.5-7.2 [facility] Comment on above: Performed By: #### U VICTOR HUGO #### [facility] [id number] Neymar Guy Addendum Reporton 08-26-2021 Addendum Report [facility] Department of Pathology [address] [place] [address] Name: BRAD HUTCHISON : 1945 Financial [id number] Number: Gender: Male Location: [facility] Admit 76 years Attending MIR RING Age: Provider: Ordering MIR RING Provider: Consulting: Surgical Pathology Report ACCESSION: COLLECTED DATE/TIME: RECEIVED DATE/TIME: PATHOLOGIST: [id number] 06/30/2021 16:30 EST 07/01/2021 12:02 EST FERNANDO HALEY, JEFF GLASS Surgical Path Addendum Report A PIN4 immunostain was used in evaluation of this specimen and is negative. JEFF KING PATHOLOGIST (Electronic Signature) Date Verified 08/26/2021 TS Final Diagnosis Report for [facility] [place] PROSTATE TISSUE, TURP: - BENIGN PROSTATIC TISSUE WITH GLANDULAR STROMAL HYPERPLASIA, ADENOSIS AND CHRONIC PROSTATITIS. - NEGATIVE FOR MALIGNANCY. JEFF KING PATHOLOGIST (Electronic Signature) Date Verified 07/07/2021 CL Clinical Data PRE-OP DIAGNOSIS: Not specified POST-OP DIAGNOSIS: Enlarged prostate with lower urinary tract symptoms PROCEDURES: Cystoscopy, TURP SPECIMEN: Prostate tissue / Ambulatory Surgery ____ Print Date08/26/2021 15:01 EST Number: Time: [facility] Department of Pathology [address] [place] [id number] Name: BRAD HUTCHISON : 1945 Financial [id number] Number: Gender: Male Location: [facility] Admit 76 years Attending MIR RING Age: Provider: Ordering MIR RING Provider: Consulting: Surgical Pathology Report ACCESSION: COLLECTED DATE/TIME: RECEIVED DATE/TIME: PATHOLOGIST: [id number] 06/30/2021 16:30 EST 07/01/2021 12:02 EST FERNANDO HALEY, JEFF ORTA Gross Description Labeled prostate tissue. Received in formalin are fragments of firm du soft tissue measuring 2.0 x 1.0 x 0.6 cm in aggregate. The specimen is entirely submitted in cassette A1- A2. HW/elliot 07/01/2021 Tissue pathology report for: [facility], [address] [place] [address]; PATHOLOGY SERVICES [facility] (CLIA #[id number]) in cooperation with [facility] at [address] [place] [address] (CLIA #[id number]) Codes CPT CODE: [id number] ____ Print Date08/26/2021 15:01 EST Number: Time: Normal [facility] Comment on above: Performed By: #### [id number] #### [facility] [address] [place] [address] Executive Officer: Alexander Yen MD COVID-19 [facility] 08-02-2021 SARS-CoV-2 (COVID-19) RNA PERRY+probe Ql (Unsp spec) Negative Normal Negative [facility] Comment on above: Order Comment: Healt hcare Worker?: N Result Comment: Testing for SARS-CoV-2 by RT-PCR This test was developed and its performance characteristics determined by [employer]) and validated at the [facility]. This test has not been FDA cleared or approved. This test has been authorized by FDA under an Emergency Use Authorization (EUA). This test has been validated in accordance with the FDA's Guidance Document (Policy for Diagnostics Testing in Laboratories Certified to Perform High Complexity Testing under CLIA prior to Emergency Use Authorization for Coronavirus Disease-2019 during the Public Health Emergency) issued on November 20, 2019. This test is only authorized for the duration of time the declaration that circumstances exist justifying the authorization of the emergency use of in vitro diagnostic tests for detection of SARS-CoV-2 virus and/or diagnosis of COVID-19 infection under section 564(b)(1) of the Act, 21 U.S.C. 360bbb-3(b)(1), unless the authorization is terminated or revoked sooner. PERFORMED BY: [place] [address] PATHOLOGIST [employer] GERI MANZANO M.D. Performed By: #### A MM, BMP, HS TROP, CBC #### [address] ECG 12 lead ECGon 08-02-2021 ECG 12 lead ECG [facility] [place] [address] [place] [address] Electrocardiograph Report Signed Patient: Brad Hutchison MR#: [id number] : 1945 Acct:[id number] Age/Sex: 76 / M ADM Date: 08/01/21 Loc: Room: [address] [place] [address] Type: ADM INOo Attending Dr: Lynn Rivas MD Ordering Provider: Lynn Rivas MD Date of Service: 08/02/21 ECG/ECG 12 lead ECG: syncope with bradycardia Copies to: Test Reason : Blood Pressure : / mmHG Vent. Rate : 060 BPM Atrial Rate : 060 BPM P-R Int : 286 ms QRS Dur : 096 ms QT Int : 462 ms P-R-T Axes : 058 -28 060 degrees QTc Int : 462 ms Sinus rhythm with 1st degree AV block Otherwise normal ECG When compared with ECG of 01-AUG-2021 16:15, premature ventricular complexes are no longer present Nonspecific T wave abnormality no longer evident in Anterior leads Confirmed by IVAN BALDWIN MD ([id number]) on 08/02/2021 5:10:59 PM Referred By: Electronically Signed By:IVAN BALDWIN MD Transcribed By: MUS Signed By Ivan Baldwin MD 171 [facility] echo transthoracicon PENDING SALE TO [facility] echo transthoracic [facility] [place] [address] Echocardiogram Signed Patient: Brad Hutchison MR#: [id number] : 1945 Acct:[id number] Age/Sex: 76 / M ADM Date: 08/01/21 Loc: Room: [address] [place] [address] Type: ADM INOo Attending Dr: Lynn Rivas MD Ordering Provider: Lynn Rivas MD Date of Service: 08/01/21 ECH/PENDING SALE TO [facility] echo transthoracic: syncope Copies to: Rosanne Chaparro MD, [facility] Lynn Rivas MD Height: 69.5 in Weight: 186 lb Performed By: Mony Perez RDCS BSA: 2.0 m2 BP: 101/71 mmHg HR: 69 Reason For Study: syncope History: CVA, HTN, Hyperlipidemia, Former Smoker, CKD, TIA Interpretation Summary Mild concentric left ventricular hypertrophy. Ejection Fraction = 60-65%. A variety of Doppler measurements indicate impaired left ventricular relaxation, which is associated with grade I/IV or mild diastolic dysfunction. The left atrium appears mildly dilated. Mild aortic regurgitation. The aortic root is 4,3 cm No thrombus, vegetation or mass is seen. Procedure/Quality: A two-dimensional transthoracic echocardiogram with color flow and Doppler was performed. The study was technically good in quality. Left Ventricle: Mild concentric left ventricular hypertrophy. Left ventricular systolic function is normal. Ejection Fraction = 60-65%. A variety of Doppler measurements indicate impaired left ventricular relaxation, which is associated with grade I/IV or mild diastolic dysfunction. Left Atrium: The left atrium appears mildly dilated. The atrial septum appears normal. Right Atrium: The right atrium appears normal in size. Right Ventricle: The right ventricular size, thickness and function are normal. Aortic Valve: The aortic valve is mildly sclerotic. Mild aortic regurgitation. Mitral Valve: The mitral valve is mildly sclerotic. There is mild mitral annular calcification. Tricuspid Valve: The tricuspid valve is normal. Pulmonic Valve: The pulmonic valve is not well seen, but is grossly normal. Arteries: Mild aortic root dilatation. The aortic root is 4,3 cm. Pericardium/Pleura: No pericardial effusion seen. There is no pleural effusion. IVC/Hepatic Viens: The IVC is normal in size with an inspiratory collapse of greater then 50%, suggesting normal right atrial pressure. Miscellaneous: No thrombus, vegetation or mass is seen. Measurements with Normals IVSd: 1.4 cm (0.7-1.1 cm)LVIDd: 4.7 cm (3.7-5.4 cm) LVPWd: 1.4 cm (0.7-1.1 cm)LVIDs: 3.4 cm (2.3-3.6 cm) LA dimension: 4.8 cm (2.3-4.0 cm)Ao root diam: 4.3 cm(2.0-3.6 cm) asc Aorta Diam: 4.0 cm(2.1-3.4cm) Doppler with Normals LV V1 max: 112.1 cm/sec (0.7-1.7m/s)MV E max luis alberto: 69.4 cm/sec(0.8-1.3m/s) MV A max luis alberto: 107.7 cm/sec(0.0-0.0m/s) MV E/A: 0.64 (<1.5) MMode/2D Measurements Calculations RVDd: 4.9 cm FS: 28.5 % Ao root area: LVOT diam: 2.2 cm TAPSE: 2.6 cm EDV(Teich): 14.8 cm2 LVOT area: 3.9 cm2 RV S Luis Alberto: 104.1 ml 14.3 cm/sec ESV(Teich): 47.0 ml EF(Teich): 54.9 % __ LVLd ap4: 9.5 cm SV(MOD-sp4): LAV(MOD-sp4): LA A2 area: 22.0 cm2 EDV(MOD-sp4): 67.2 ml 54.7 ml 112.0 ml LAV(MOD-sp2): LA A4 area: 20.8 cm2 LVLs ap4: 8.1 cm 67.5 ml LA length (vol): ESV(MOD-sp4): 6.3 cm 44.8 ml LA vol: 61.6 ml EF(MOD-sp4): 60.0 % LA vol index: 30.5 ml/m2 Doppler Measurements Calculations MV dec time: E/E' lat: 7.1 MV dec slope: Ao V2 max: 0.23 sec E/E' med: 11.6 135.7 cm/sec 303.1 cm/sec2 Ao max P.4 mmHg Ao mean P.9 mmHg Ao V2 mean: 106.0 cm/sec Ao V2 VTI: 32.1 cm JAIR(I,D): 3.2 cm2 JAIR(V,D): 3.2 cm2 __ AI max luis alberto: LV V1 max P.0 cm/sec 5.0 mmHg AI max P.8 mmHg LV V1 mean PG: AI dec slope: 3.2 mmHg 161.7 cm/sec2 LV V1 mean: AI P1/2t: 728.2 msec 85.9 cm/sec LV V1 VTI: 26.3 cm Transcribed By: ROSIE 08/02/21 1201 Dictated By: Rosanne Chaparro MD, [facility] 08/02/21 0833 Signed By: 08/02/21 1201 Normal [facility] Ammoniaon 08-01-2021 Ammonia (P) [Moles/Vol] 12 umol/L Normal 11-35 [facility] Comment on above: Result Comment: PERF ORMED BY: [place] [address] PATHOLOGIST [employer] GERI MANZANO M.D. Performed By: #### A MM, BMP, HS TROP, CBC #### [facility] [address] Basic Metabolic Panelon 07-20 Calcium [Mass/Vol] 8.3 mg/dL Normal 8.2-10.2 [facility] Comment on above: Performed By: #### A MM, BMP, HS TROP, CBC #### [facility] [address] Chloride [Moles/Vol] 101 mmol/L Normal 95-114 [facility] Comment on above: Performed By: #### A MM, BMP, HS TROP, CBC #### [facility] [address] CO2 [Moles/Vol] 21.4 mmol/L Low 22.0-30.0 [facility] Comment on above: Performed By: #### A MM, BMP, HS TROP, CBC #### [facility] [address] [place] [address] [place] Creatinine [Mass/Vol] 2.15 mg/dL High 0.64-1.27 [facility] Comment on above: Performed By: #### A MM, BMP, HS TROP, CBC #### [facility] [address] [place] [address] [place] Creatinine Clr Calc Pharmacy 31.12 Normal [facility] Comment on above: Result Comment: PERF ORMED BY: [place] [address] PATHOLOGIST [employer] GERI MANZANO M.D. Performed By: #### A MM, BMP, HS TROP, CBC #### [facility] [address] Estimated GFR ( Ruthy 37 Normal [facility] Comment on above: Result Comment: GFR estimated reference range: According to KDOQI guidelines, <60 ml/min/1.73m2 is sufficient to diagnose a patient with chronic kidney disease. Performed By: #### A MM, BMP, HS TROP, CBC #### [facility] [address] [place] [address] [place] Estimated GFR (Non- Am 30 Normal [facility] Comment on above: Performed By: #### A MM, BMP, HS TROP, CBC #### [facility] [address] Glucose [Mass/Vol] 126 mg/dL High 70-100 [facility] Comment on above: Result Comment: [place] om Glucose Reference Range is dependent on time and content of last meal. Glucose of more than 200 mg/dL in a nonstressed, ambulatory subject supports the diagnosis of Diabetes Mellitus. ADA recommended reference range Performed By: #### A MM, BMP, HS TROP, CBC #### [facility] [address] Potassium [Moles/Vol] 3.9 mmol/L Normal 3.5-5.1 [facility] Comment on above: Performed By: #### A MM, BMP, HS TROP, CBC #### [facility] [address] Sodium [Moles/Vol] 133 mmol/L Low 136-146 [facility] Comment on above: Performed By: #### A MM, BMP, HS TROP, CBC #### [facility] [address] [place] [address] Urea nitrogen [Mass/Vol] 34 mg/dL High 9-23 [facility] Comment on above: Performed By: #### A MM, BMP, HS TROP, CBC #### [facility] [address] [place] [address] COVID-19 Antigenon 1 COVID-19 Antigen Healthcare Worker?: N Sarah Reference Sarah Reference Negative SARS-CoV+SARS-CoV-2 (COVID-19) Ag [Presence] in Respiratory specimen by Rapid immunoassay Negative for SARS Antigen by KINDRA COVID19 Blank Space -------- Sarah Disclaimer Negative results, from patients with symptom Sarah Disclaimer onset beyond five days, should be treated as Sarah Disclaimer presumptive and confirmation with a molecular Sarah Disclaimer assay, if necessary, for patient management, Sarah Disclaimer may be performed. Negative results do not rule Sarah Disclaimer out COVID-19 and should not be used as the sole Sarah Disclaimer basis for treatment or patient management Sarah Disclaimer decisions, including infection control decisions. Sarah Disclaimer Negative results should be considered in the Sarah Disclaimer context of a patient's recent exposures, history Sarah Disclaimer and the presence of clinical signs and symptoms Sarah Disclaimer consistent with COVID-19. COVID19 Blank Space -------- Sarah Disclaimer The Sarah SARS Antigen KINDRA does not differentiate Sarah Disclaimer between SARS-CoV and SARS-CoV-2. COVID19 Blank Space -------- Sarah Disclaimer This test was developed and its performance Sarah Disclaimer characteristic determined by [facility] and Sarah Disclaimer validated at [facility]. This Sarah Disclaimer test has not been FDA cleared or approved. This Sarah Disclaimer test has been authorized by FDA under an Emergency Use Sarah Disclaimer Authorization (EUA). This test has been validated Sarah Disclaimer in accordance with the FDA's Guidance Document (Policy Sarah Disclaimer for Diagnostics Testing in Laboratories Certified to Sarah Disclaimer Perform High Complexity Testing under CLIA prior to Sarah Disclaimer Emergency Use Authorization for Coronavirus Sarah Disclaimer iseas during the Public Health Emergency) Sarah Disclaimer issued on November 20, 2019. This test is only authorized Sarah Disclaimer for the duration of time the declaration that Sarah Disclaimer circumstances exist justifying the authorization of Sarah Disclaimer the emergency use of in vitro diagnostic tests for Sarah Disclaimer detection of SARS-CoV-2 virus and/or diagnosis of Sarah Disclaimer COVID-19 infection under section 564(b)(1) of the Sarah Disclaimer Act, 21 U.S.C. 360bbb-3(b)(1), unless the Sarah Disclaimer authorization is terminated or revoked sooner. PERFORMED BY: [place] [address] PATHOLOGIST [employer] GERI MANZANO M.D. [facility] Comment on above: Performed By: #### S TUYET, COVID-19 SARAH #### [address] cervical spine wo conon 1 10-02-2020 CT cervical spine wo con [facility] [place] [address] CT Scan Report Signed Patient: Brad Hutchison MR#: [id number] : 1945 Acct:[id number] Age/Sex: 76 / M ADM Date: 08/01/21 Loc: ER Room: Type: [facility] ER Attending Dr: Ordering Provider: Porfirio Pryor DO Date of Service: 08/01/21 CT/CT cervical spine wo con: r/o fx s/p syncope Copies to: Porfirio Pryor DO CT cervical spine withoutcontrast TECHNIQUE: Axial imaging with 2-D and 3-D reconstruction. The CT exam was performed using one or more the following dose reduction techniques: Automated exposure control, adjustment of the MA and/or Kv according to patient size, or use of the iterative reconstruction technique. COMPARISON:None HISTORY: Unresponsive. RIGHT scalp laceration. Cervical lordosis is straightened. The craniocervical junction is unremarkable. No acute cervical spine fracture identified. No listhesis is seen. The facets are in adequate alignment. No abnormal increased density of the spinal canal seen. No prevertebral soft tissue abnormality identified. No skull base abnormality seen. Lung apices are unremarkable. No soft tissue abnorm ality seen. No airway abnormality seen. C4-5 partial fusion changes of vertebral bodies and facets. Remaining multilevel spondylosis and facet degeneration. CT/CT cervical spine wo con IMPRESSION: No acute process Impression dictated by: Champ Rae M.D.08/01/2021 3:59 PM Dictation Location: [place] [address] Transcribed By: [facility] 08/01/211558 Dictated By: Champ Rae DO 08/01/211550 Signed By: 08/01/21 155 Normal [facility] CT head/brain wo conon 08-01 CT head/brain wo con [facility] [place] [address] CT Scan Report Signed Patient: Brad Hutchison MR#: [id number] : 1945 Acct:[id number] Age/Sex: 76 / M ADM Date: 08/01/21 Loc: ER Room: Type: [facility] ER Attending Dr: Ordering Provider: Porfirio Pryor DO Date of Service: 08/01/21 CT/CT head/brain wo con: r/o ich s/p syncope Copies to: Porfirio Pryor DO Unenhanced head CT TECHNIQUE: Contiguous axial imaging of the head. The CT exam was performed using one or more the following dose reduction techniques: Automated exposure control, adjustment of the MA and/or Kv according to patient size, or use of the iterative reconstruction technique. COMPARISON:07/30/19 HISTORY:Unresponsive. RIGHT head laceration. The ventricles are normal in size and position. Diffuse atrophy identified. Regions of decreased density throughout the periventricular white matter are most consistent with chronic small vessel ischemic changes. Similar remote posterior LEFT occipital lobe infarction identified. Remote bilateral basal ganglia lacunar infarcts present. Vascular calcification of carotid siphons and LEFT vertebral artery present. No intracranial hemorrhage, mass effect or herniation is identified. No recent vascular distribution infarction is seen. No abnormal extra-axial fluid collections identified. Sinuses, orbits and mastoid air cells are unremarkable. Bony structures are intact. CT/CT head/brain wo con IMPRESSION: No acute intracranial findings.Diffuse atrophy and chronic small vessel ischemic changes. Similar remote LEFT occipital infarct. Remote lacunar infarcts of basal ganglia bilaterally. Impression dictated by: Champ Rae M.D.08/01/2021 3:51 PM Dictation Location: [place] [address] Transcribed By: [facility] 08/01/21 155 Dictated By: Champ Rae DO 08/01/21 1547 Signed By: 08/01/21 155 Normal [facility] Complete Blood Count Auto Di ffon 08-01-2021 Basophils (Bld) [#/Vol] 0.1 10*3/uL Normal 0.0-0.2 [facility] Comment on above: Result Comment: PERF ORMED BY: [place] [address] PATHOLOGIST [employer] GERI MANZANO M.D. Performed By: #### A MM, BMP, HS TROP, CBC #### [facility] [address] Basophils/100 WBC (Bld) 1.3 % Normal . [facility] Comment on above: Performed By: #### A MM, BMP, HS TROP, CBC #### [facility] [address] [place] [address] [place] Eosinophils (Bld) [#/Vol] 0.3 10*3/uL Normal 0.0-0.45 [facility] Comment on above: Performed By: #### A MM, BMP, HS TROP, CBC #### [facility] [address] [place] [address] [place] Eosinophils/100 WBC (Bld) 3.4 % Normal . [facility] Comment on above: Performed By: #### A MM, BMP, HS TROP, CBC #### [facility] [address] [place] [address] [place] Erythrocyte distribution width (RBC) [Ratio] 13.1 % Normal 12.0-14.8 [facility] Comment on above: Performed By: #### A MM, BMP, HS TROP, CBC #### [address] Hematocrit (Bld) [Volume fraction] 35.7 % Low 38.8-50.0 [facility] Comment on above: Performed By: #### A MM, BMP, HS TROP, CBC #### [address] Hemoglobin (Bld) [Mass/Vol] 12.0 g/dL Low 13.0-17.0 [facility] Comment on above: Performed By: #### A MM, BMP, HS TROP, CBC #### [address] Lymphocytes (Bld) [#/Vol] 1.8 10*3/uL Normal 1.00-4.8 [facility] Comment on above: Performed By: #### A MM, BMP, HS TROP, CBC #### [address] Lymphocytes/100 WBC (Bld) 22.9 % Normal . [facility] Comment on above: Performed By: #### A MM, BMP, HS TROP, CBC #### [address] MCH (RBC) [Entitic mass] 33.9 pg Normal 27.5-35.2 [facility] Comment on above: Performed By: #### A MM, BMP, HS TROP, CBC #### [address] MCV (RBC) [Entitic vol] 100.5 fL Normal 83.5-101 [facility] Comment on above: Performed By: #### A MM, BMP, HS TROP, CBC #### [address] Mean Corpuscular HGB Conc 33.7 g/dL Normal 32.5-35.6 [facility] Comment on above: Performed By: #### A MM, BMP, HS TROP, CBC #### [address] [place] [address] [place] Monocytes (Bld) [#/Vol] 0.6 10*3/uL Normal 0.0-0.8 [facility] Comment on above: Performed By: #### A MM, BMP, HS TROP, CBC #### [facility] [address] [place] [address] [place] Monocytes/100 WBC (Bld) 7.5 % Normal . [facility] Comment on above: Performed By: #### A MM, BMP, HS TROP, CBC #### [facility] [address] [place] [address] [place] Neutrophils (Bld) [#/Vol] 5.0 10*3/uL Normal 1.8-7.7 [facility] Comment on above: Performed By: #### A MM, BMP, HS TROP, CBC #### [facility] [address] [place] [address] [place] Neutrophils/100 WBC (Bld) 64.9 % Normal . [facility] Comment on above: Performed By: #### A MM, BMP, HS TROP, CBC #### [facility] [address] [place] [address] [place] Nucleated RBC/100 WBC (Bld) [Ratio] 0.1 % Normal 0-0.5 [facility] Comment on above: Performed By: #### A MM, BMP, HS TROP, CBC #### [facility] [address] [place] [address] [place] Platelet mean volume (Bld) [Entitic vol] 9.2 fL Normal 6.6-10.1 [facility] Comment on above: Performed By: #### A MM, BMP, HS TROP, CBC #### [facility] [address] [place] [address] [place] Platelets (Bld) [#/Vol] 145 10*3/uL Low 150-450 [facility] Comment on above: Performed By: #### A MM, BMP, HS TROP, CBC #### [facility] [address] [place] [address] [place] RBC (Bld) [#/Vol] 3.55 10*6/uL Low 3.90-5.60 [facility] Comment on above: Performed By: #### A MM, BMP, HS TROP, CBC #### [facility] [address] [place] [address] WBC (Bld) [#/Vol] 7.6 10*3/uL Normal 4.5-11.0 [facility] Comment on above: Performed By: #### A MM, BMP, HS TROP, CBC #### [facility] [address] [place] [address] ECG 12 lead ECGon 08-01-2021 ECG 12 lead ECG [facility] [place] [address] Electrocardiograph Report Signed Patient: Brad Hutchison MR#: [id number] : 1945 Acct:[id number] Age/Sex: 76 / M ADM Date: 08/01/21 Loc: Room: [address] [place] [address] Type: ADM IN Attending Dr: Lynn Rivas MD Ordering Provider: Porfirio Pryor DO Date of Service: 08/01/21 ECG/ECG 12 lead ECG: Syncope Copies to: Test Reason : Blood Pressure : 091/065 mmHG Vent. Rate : 056 BPM Atrial Rate : 056 BPM P-R Int : 260 ms QRS Dur : 094 ms QT Int : 520 ms P-R-T Axes : 076 -06 088 degrees QTc Int : 501 ms Sinus bradycardia with marked sinus arrhythmia with 1st degree AV block with occasional premature ventricular complexes Nonspecific T wave abnormality Prolonged QT Confirmed by Porfirio Pryor DO ([id number]) on 08/01/2021 8:58:49 PM Referred By: Electronically Signed By:Porfirio Pryor DO Transcribed By: MUS Signed By Porfirio Pryor DO 2057 Normal [facility] ECG 12 lead ECG [facility] [place] [address] Electrocardiograph Report Signed Patient: Brad Hutchison MR#: [id number] : 1945 Acct:[id number] Age/Sex: 76 / M ADM Date: 08/01/21 Loc: Room: [address] [place] [address] Type: ADM [place] Attending Dr: Lynn Rivas MD Ordering Provider: Porfirio Pryor DO Date of Service: 08/01/21 ECG/ECG 12 lead ECG: syncope Copies to: Test Reason : Blood Pressure : 085/052 mmHG Vent. Rate : 049 BPM Atrial Rate : 049 BPM P-R Int : 280 ms QRS Dur : 098 ms QT Int : 526 ms P-R-T Axes : 101 -03 076 degrees QTc Int : 475 ms Sinus bradycardia with 1st degree AV block baseline artifact Confirmed by Porfirio Pryor DO ([id number]) on 08/01/2021 8:58:16 PM Referred By: Electronically Signed By:Porfirio Pryor DO Transcribed By: MUS Signed By Porfirio Pryor DO 2057 [facility] Ethyl Alcohol Profileon 07-20 Ethanol [Mass/Vol] 38 mg/dL Normal [facility] Comment on above: Performed By: #### E BRAYDEN #### [facility] [address] [place] [address] Percent Ethanol 0.038 % [facility] Comment on above: Result Comment: PERF ORMED BY: [place] [address] PATHOLOGIST [employer] GERI MANZANO M.D. Performed By: #### E BRAYDEN #### [facility] [address] [place] [address] Sarah Ag Negativeon 08-01-20 Sarah Ag Negative Negative Normal Negative [facility] Comment on above: Result Comment: This is a duplicate Sarah SARS Antigen (KINDRA) result to be used for statistical tracking purpose only. PERFORMED BY: [place] [address] PATHOLOGIST [employer] GERI MANZANO M.D. Performed By: #### S OFBJORN COVID-19 SARAH #### [facility] [address] [place] [address] Troponin I High Sensitivityo n 08-01-2021 Troponin I High Sensitivity 12 pg/mL Normal 0-20 [facility] Comment on above: Result Comment: PERF ORMED BY: [place] [address] PATHOLOGIST [employer] GERI MANZANO M.D. Performed By: #### A MM, BMP, HS TROP, CBC #### [address] Troponin I High Sensitivity 12 pg/mL Normal 0-20 [facility] Comment on above: Result Comment: PERF ORMED BY: [place] [address] PATHOLOGIST [employer] GERI MANZANO M.D. Performed By: #### A MM, BMP, HS TROP, CBC #### [address] XR chest 1V portableon 08-01 XR chest 1V portable [facility] [place] [address] [place] [address] XRay Report Signed Patient: Brad Hutchison MR#: [id number] : 1945 Acct:[id number] Age/Sex: 76 / M ADM Date: 08/01/21 Loc: ER Room: Type: [facility] ER Attending Dr: Ordering Provider: Porfirio Pryor DO Date of Service: 08/01/21 XR/XR chest 1V portable: syncope Copies to: Porfirio Pryor DO Plain film chestsingle view HISTORY:Unresponsive. COMPARISON:07/30/19 FINDINGS: Cardiac, mediastinal and hilar silhouettes are stable. Minimal basilar parenchymal densities suggest atelectasis or scarring. Mild RIGHT hemidiaphragm elevation present. No large pleural effusion or pneumothorax present. Bony structures are intact. XR/XR chest 1V portable IMPRESSION: Similar basilar atelectasis/scarring. Similar hemidiaphragm elevation on the RIGHT. Impression dictated by: Champ Rae M.D.08/01/2021 3:35 PM Dictation Location: [place] [address] Transcribed By: [facility] 08/01/21 153 Dictated By: Champ Rae DO 08/01/21 153 Signed By: 08/01/21 153 [facility] SURGICAL PATH REPORTon 07-07 SURGICAL PATH REPORT [facility] Department of Pathology [address] [place] [address] Name: BRAD HUTCHISON : 1945 [facility] [id number] Number: Gender: Male Location: [facility] Admit 76 years Attending MIR RING Age: Provider: Ordering MIR RING Provider: Consulting: Surgical Pathology Report ACCESSION: COLLECTED DATE/TIME: RECEIVED DATE/TIME: PATHOLOGIST: [id number] 06/30/2021 16:30 EST 07/01/2021 12:02 EST FERNANDO HALEY, JEFF ORTA Final Diagnosis Report for [facility] [place], [place] PROSTATE TISSUE, TURP: - BENIGN PROSTATIC TISSUE WITH GLANDULAR STROMAL HYPERPLASIA, ADENOSIS AND CHRONIC PROSTATITIS. - NEGATIVE FOR MALIGNANCY. JEFF KING PATHOLOGIST (Electronic Signature) Date Verified 07/07/2021 CL Clinical Data PRE-OP DIAGNOSIS: Not specified POST-OP DIAGNOSIS: Enlarged prostate with lower urinary tract symptoms PROCEDURES: Cystoscopy, TURP SPECIMEN: Prostate tissue / Ambulatory Surgery Gross Description Labeled prostate tissue. Received in formalin are fragments of firm du soft tissue measuring 2.0 x 1.0 x 0.6 cm in aggregate. The specimen is entirely submitted in cassette A1- A2. GENEVA/elliot 07/01/2021 Tissue pathology report for: [facility], [address] [place] [id number]; ____ Print Date/ 07/07/2021 11:14 EST Number: Time: [facility] Department of Pathology [address] [place] [id number] Name: BRAD HUTCHISON : 1945 Financial [id number] Number: Gender: Male Location: [facility] Admit 76 years Attending MIR RING Age: Provider: Ordering MIR RING Provider: Consulting: Surgical Pathology Report ACCESSION: COLLECTED DATE/TIME: RECEIVED DATE/TIME: PATHOLOGIST: [id number] 06/30/2021 16:30 EST 07/01/2021 12:02 EST FERNNADO HALEY, JEFF ORTA Gross Description PATHOLOGY SERVICES PROVIDED BY [facility], [facility] (CLIA #[id number]) in cooperation with [facility] at [address] [place] [address] (CLIA #[id number]) Codes CPT CODE: 45046 [id number] ____ Print Date/ 07/07/2021 11:14 EST Number: Time: Normal [facility] Comment on above: Performed By: #### 9 [id number] #### [facility] Laboratory Services [address] [place] [id number] Executive Officer: Alexander Yen MD Creatinine 07-29-2018 Creatinine mass conc 1.36 mg/dL High 0.50-1.30 [facility] Comment on above: Performed By: #### 1 [id number] ####[facility] [address] [place] [address] GFR/1.73 sq M.predicted MDRD vol rate/area 52 mL/min/{1.73_m2} Normal [facility] Comment on above: Result Comment: Inte rpretation for Chronic Kidney Disease:Stages 1&2 >60 Healthy or potential kidney damage.Mild decrease of GFR.Stage 3 30-59 Moderate decrease of GFR.Stage 4 15-29 Severe decrease of GFR.Stage 5 <15 Kidney failure or on dialysis. Performed By: #### 1 [id number] ####[facility] [address] [facility] [place] [address] Electrolyte Panelon 07-29-20 18 Anion gap 3 molar conc 11 mmol/L Normal 10-20 [facility] Comment on above: Performed By: #### 1 [id number] ####[facility] [address] [place] [address] Chloride molar conc 104 mmol/L Normal 98-107 [facility] Comment on above: Performed By: #### 1 [id number] ####[facility] [address] [place] [address] HCO3 molar conc (Bld) 30 mmol/L Normal 21-32 [facility] Comment on above: Performed By: #### 1 [id number] ####[facility] [address] [place] [address] Potassium molar conc 3.6 mmol/L Normal 3.5-5.1 [facility] Comment on above: Performed By: #### 1 [id number] ####[facility] [address] [place] [address] Sodium molar conc 141 mmol/L Normal 136-145 [facility]are Comment on above: Performed By: #### 1 [id number] ####[facility] [address] [place] [address] Urea Nitrogenon 07-29-2018 Urea nitrogen mass conc 20 mg/dL Normal 6-23 [facility] Comment on above: Performed By: #### 1 [id number] ####[facility] [address] [employer] [place] [address] Vital Signs Date Time Vital Sign Value Performing Clinician Javier williamson 03-19-2023 10:23-0400 Blood Pressure Location Mir ELISA [facility] 03-19-2023 10:23-0400 Diastolic blood pressure 70 mm[Hg] Mir RING [facility] 03-19-2023 10:23-0400 Heart rate 68 /min Mir RING [facility] 03-19-2023 10:23-0400 Respiratory rate 16 /min Mir RING [facility] 03-19-2023 10:23-0400 Systolic blood pressure 106 mm[Hg] Mir RING [facility] 11-17-2022 10:30-0400 Blood Pressure Location Mir RING [facility] 11-17-2022 10:30-0400 Diastolic blood pressure 87 mm[Hg] Mir RING [facility] 11-17-2022 10:30-0400 Heart rate 68 /min Mir RING [facility] 11-17-2022 10:30-0400 Respiratory rate 16 /min Mir RING [facility] 11-17-2022 10:30-0400 Systolic blood pressure 128 mm[Hg] Mir RING [facility] 11-14-2021 10:55-0400 Blood Pressure Location Mir RING [facility] 11-14-2021 10:55-0400 Diastolic blood pressure 80 mm[Hg] Mir RING [facility] [place] 11-14-2021 10:55-0400 Heart rate 68 /min Mir RING [facility] [place] 11-14-2021 10:55-0400 Respiratory rate 16 /min Mir RING [facility] 11-14-2021 10:55-0400 Systolic blood pressure 138 mm[Hg] Mir RING [facility] Encounter Date Encounter Type Care Provider Facility Start: 03-21-2024 ambulatory Mir RING Facili ty:[facility] [place] Start: 03-19-2023 End: 03-20-2023 ambulatory Mir RING Facility:[facility] [place] Start: 03-19-2023 End: 03-19-2023 Patient encounter procedure Mir RING [facility] [employer] [facility] Start: 11-17-2022 End: 11-18-2022 ambulatory Mir RING Facility:[facility] [place] Start: 11-17-2022 End: 11-17-2022 Patient encounter procedure Mir RING [facility] Start: 10-27-2022 End: 10-27-[address] DOCTOR JENKINS Facility:[facility] Start: 07-03-2022 End: 07-03-2022 ambulatory JJ DACOSTA Facility:[facility] Start: 11-14-2021 End: 11-14-2021 Patient encounter procedure Mir RING [facility] Start: 08-06-2018 Patient encounter procedure ARCHIE HERNÁNDEZ Facility:[id number] Start: 08-06-2018 Patient encounter procedure Facility:[id number] Start: 07-29-2018 Patient encounter procedure ARCHIE HERNÁNDEZ Facility:[id number] Procedures Date Procedure Procedure Detail Performing Clinician Start: 06-30-2021 Revision of transure thral prostatectomy Mir RING Start: 01-29-2018 Transurethral prostatectomy Mir RING Start: 12-25-2017 Urodynamic studies Ernestinar alejandro RING Immunizations Immunization Date Immunization Notes Care Provider Fa crescencio 05-30-2022 SARS-CoV-2 (COVID-19 ) [id number] Mir RING [facility] 02-15-2022 SARS-CoV-2 mRNA (eqkfnhwmtzt-ykos-kfumky e) vaccine Mir RING [facility] 08-01-2021 tetanus toxoid, redu dontae diphtheria toxoid, and acellular pertussis vaccine, adsorbed Mir RING [facility] 07-01-2021 SARS-CoV-2 (COVID-19 ) mRNA BNT-162b2 vax Mir RING [facility] 06-02-2021 influenza virus vacc ine, unspecified formulation Mir RING [facility] 04-23-2021 pneumococcal polysaccharide vaccine, 23 valent Mir RING [facility] 04-20-2021 influenza virus vacc ine, unspecified formulation Mir RING [facility] 09-22-2020 SARS-CoV-2 (COVID-19 ) mRNA BNT-162b2 vax Mir RING [facility] Comment on above: Result Comment: 2022: [id number] 09-01-2020 SARS-CoV-2 (COVID-19 ) mRNA BNT-162b2 vax Mir [employer] [facility] Comment on above: Result Comment: 2022: [id number] 06-01-2020 influenza virus vacc ine, unspecified formulation [employer] [facility] 06-17-2019 influenza virus vacc ine, unspecified formulation [employer] [facility] 06-17-2018 influenza virus vacc ine, unspecified formulation [employer] [facility] 06-11-2017 influenza virus vacc ine, unspecified formulation [employer] [facility] 07-10-2014 influenza virus vacc ine, unspecified formulation [employer] [facility] Payers Date Payer Category Payer Medicaid [id number] 1957 Medicare [id number] 1945 Unknown [id number] 2.16. [id number] 1945 Unknown [id number] 2.16.8 [id number] 1945 Unknown [id number] 2.16.8 [id number] 1945 Unknown [id number] 2.16.84 [id number] 1945 Unknown [id number] 2.16.84 [id number] 1945 Unknown [id number] 2.16.8 [id number] 1945 Unknown [id number] 2.16.8 [id number] 1945 Unknown [id number] 2.16.8 [id number] Medicare [id number] Self-pay Self Pay [id number] Social History Date Type Detail Facility Tobacco smoking stat [facility] Unknown if ever smoked [facility] Start: 1945 Sex Assigned At Male F [facility] Start: 05-20-2021 End: 11-17-2022 Tobacco smoking status Never smoked tobacco (finding) [facility] Sex Assigned At Male [facility] Tobacco smoking status Never [facility] Goals Date Patient Goal Desired Activity /State Functional Status Date Assessment Result Facility 03-19-2023 Functional Status N/A [facility] 11-17-2022 Functional Status N/A [facility] Hospital Discharge instructions 03-19-2023 Note Date & Type Note Facility 03-19-2023 Hospital Discharge instructions Patient Education 03/19/2023 10:54:39 Benign Prostatic Hyperplasia Benign Prostatic Hyperplasia Benign prostatic hyperplasia (BPH) is an enlarged prostate gland that is caused by the normal aging process. The prostate may get bigger as a man gets older. The condition is not caused by cancer. The prostate is a walnut-sized gland that is involved in the production of semen. It is located in front of the rectum and below the bladder. The bladder stores urine. The urethra carries stored urine out of the body. An enlarged prostate can press on the urethra. This can make it harder to pass urine. The buildup of urine in the bladder can cause infection. Back pressure and infection may progress to bladder damage and kidney (renal) failure. What are the causes? This condition is part of the normal aging process. However, not all men develop problems from this condition. If the prostate enlarges away from the urethra, urine flow will not be blocked. If it enlarges toward the urethra and compresses it, there will be problems passing urine. What increases the risk? This condition is more likely to develop in men older than 50 years. What are the signs or symptoms? Symptoms of this condition include: Getting up often during the night to urinate. Needing to urinate frequently during the day. Difficulty starting urine flow. Decrease in size and strength of your urine stream. Leaking (dribbling) after urinating. Inability to pass urine. This needs immediate treatment. Inability to completely empty your bladder. Pain when you pass urine. This is more common if there is also an infection. Urinary tract infection (UTI). How is this diagnosed? This condition is diagnosed based on your medical history, a physical exam, and your symptoms. Tests will also be done, such as: A post-void bladder scan. This measures any amount of urine that may remain in your bladder after you finish urinating. A digital rectal exam. In a rectal exam, your health care provider checks your prostate by putting a lubricated, gloved finger into your rectum to feel the back of your prostate gland. This exam detects the size of your gland and any abnormal lumps or growths. An exam of your urine (urinalysis). A prostate specific antigen (PSA) screening. This is a blood test used to screen for prostate cancer. An ultrasound. This test uses sound waves to electronically produce a picture of your prostate gland. Your health care provider may refer you to a specialist in kidney and prostate diseases (urologist). How is this treated? Once symptoms begin, your health care provider will monitor your condition (active surveillance or watchful waiting). Treatment for this condition will depend on the severity of your condition. Treatment may include: Observation and yearly exams. This may be the only treatment needed if your condition and symptoms are mild. Medicines to relieve your symptoms, including: ?Medicines to shrink the prostate. ?Medicines to relax the muscle of the prostate. Surgery in severe cases. Surgery may include: ?Prostatectomy. In this procedure, the prostate tissue is removed completely through an open incision or with a laparoscope or robotics. ?Transurethral resection of the prostate (TURP). In this procedure, a tool is inserted through the opening at the tip of the penis (urethra). It is used to cut away tissue of the inner core of the prostate. The pieces are removed through the same opening of the penis. This removes the blockage. ?Transurethral incision (TUIP). In this procedure, small cuts are made in the prostate. This lessens the prostate's pressure on the urethra. ?Transurethral microwave thermotherapy (TUMT). This procedure uses microwaves to create heat. The heat destroys and removes a small amount of prostate tissue. ?Transurethral needle ablation (TUNA). This procedure uses radio frequencies to destroy and remove a small amount of prostate tissue. ?Interstitial laser coagulation (ILC). This procedure uses a laser to destroy and remove a small amount of prostate tissue. ?Transurethral electrovaporization (TUVP). This procedure uses electrodes to destroy and remove a small amount of prostate tissue. ?Prostatic urethral lift. This procedure inserts an implant to push the lobes of the prostate away from the urethra. Follow these instructions at home: Take wmlj-rlm-gcdsfvh and prescription medicines only as told by your health care provider. Monitor your symptoms for any changes. Contact your health care provider with any changes. Avoid drinking large amounts of liquid before going to bed or out in public. Avoid or reduce how much caffeine or alcohol you drink. Give yourself time when you urinate. Keep all follow-up visits. This is important. Contact a health care provider if: You have unexplained back pain. Your symptoms do not get better with treatment. You develop side effects from the medicine you are taking. Your urine becomes very dark or has a bad smell. Your lower abdomen becomes distended and you have trouble passing urine. Get help right away if: You have a fever or chills. You suddenly cannot urinate. You feel light-headed or very dizzy, or you faint. There are large amounts of blood or clots in your urine. Your urinary problems become hard to manage. You develop moderate to severe low back or flank pain. The flank is the side of your body between the ribs and the hip. These symptoms may be an emergency. Get help right away. Call 911. Do not wait to see if the symptoms will go away. Do not drive yourself to the hospital. Summary Benign prostatic hyperplasia (BPH) is an enlarged prostate that is caused by the normal aging process. It is not caused by cancer. An enlarged prostate can press on the urethra. This can make it hard to pass urine. This condition is more likely to develop in men older than 50 years. Get help right away if you suddenly cannot urinate. This information is not intended to replace advice given to you by your health care provider. Make sure you discuss any questions you have with your health care provider. Document Revised: 02/22/2022 Document Reviewed: 02/22/2022 [employer] Patient Education 2022 [employer]. Follow Up Care 11/17/2022 11:43:25 With:ELISA HALEY, Mir Bender, URL Address: [facility] [address] , [place] [address]- [phone] When: Unknown Comments:1 year [facility] Hospital Discharge instructions 11-17-2022 Note Date & Type Note Facility 11-17-2022 Hospital Discharg e instructions Patient Education 11/17/2022 11:07:03 Urinary Incontinence Urinary Incontinence Urinary incontinence refers to a condition in which a person is unable to control where and when to pass urine. A person with this condition will urinate when he or she does not mean to (involuntarily). What are the causes? This condition may be caused by: Medicines. Infections. Constipation. Overactive bladder muscles. Weak bladder muscles. Weak pelvic floor muscles. These muscles provide support for the bladder, intestine, and, in women, the uterus. Enlarged prostate in men. The prostate is a gland near the bladder. When it gets too big, it can pinch the urethra. With the urethra blocked, the bladder can weaken and lose the ability to empty properly. Surgery. Emotional factors, such as anxiety, stress, or post-traumatic stress disorder (PTSD). Pelvic organ prolapse. This happens in women when organs shift out of place and into the vagina. This shift can prevent the bladder and urethra from working properly. What increases the risk? The following factors may make you more likely to develop this condition: Older age. Obesity and physical inactivity. and childbirth. Menopause. Diseases that affect the nerves or spinal cord (neurological diseases). Long-term (chronic) coughing. This can increase pressure on the bladder and pelvic floor muscles. What are the signs or symptoms? Symptoms may vary depending on the type of urinary incontinence you have. They include: A sudden urge to urinate, but passing urine involuntarily before you can get to a bathroom (urge incontinence). Suddenly passing urine with any activity that forces urine to pass, such as coughing, laughing, exercise, or sneezing (stress incontinence). Needing to urinate often, but urinating only a small amount, or constantly dribbling urine (overflow incontinence). Urinating because you cannot get to the bathroom in time due to a physical disability, such as arthritis or injury, or communication and thinking problems, such as Alzheimer disease (functional incontinence). How is this diagnosed? This condition may be diagnosed based on: Your medical history. A physical exam. Tests, such as: ?Urine tests. ?X-rays of your kidney and bladder. ?Ultrasound. ?CT scan. ?Cystoscopy. In this procedure, a health care provider inserts a tube with a light and camera (cystoscope) through the urethra and into the bladder in order to check for problems. ?Urodynamic testing. These tests assess how well the bladder, urethra, and sphincter can store and release urine. There are different types of urodynamic tests, and they vary depending on what the test is measuring. To help diagnose your condition, your health care provider may recommend that you keep a log of when you urinate and how much you urinate. How is this treated? Treatment for this condition depends on the type of incontinence that you have and its cause. Treatment may include: Lifestyle changes, such as: ?Quitting smoking. ?Maintaining a healthy weight. ?Staying active. Try to get 150 minutes of moderate-intensity exercise every week. Ask your health care provider which activities are safe for you. ?Eating a healthy diet. ?Avoid high-fat foods, like fried foods. ?Avoid refined carbohydrates like white bread and white rice. ?Limit how much alcohol and caffeine you drink. ?Increase your fiber intake. Foods such as fresh fruits, vegetables, beans, and whole grains are healthy sources of fiber. Pelvic floor muscle exercises. Bladder training, such as lengthening the amount of time between bathroom breaks, or using the bathroom at regular intervals. Using techniques to suppress bladder urges. This can include distraction techniques or controlled breathing exercises. Medicines to relax the bladder muscles and prevent bladder spasms. Medicines to help slow or prevent the growth of a man's prostate. Botox injections. These can help relax the bladder muscles. Using pulses of electricity to help change bladder reflexes (electrical nerve stimulation). For women, using a medical coding manager to prevent urine leaks. This is a small, tampon-like, disposable device that is inserted into the urethra. Injecting collagen or carbon beads (bulking agents) into the urinary sphincter. These can help thicken tissue and close the bladder opening. Surgery. Follow these instructions at home: Lifestyle Limit alcohol and caffeine. These can fill your bladder quickly and irritate it. Keep yourself clean to help prevent odors and skin damage. Ask your doctor about special skin creams and cleansers that can protect the skin from urine. Consider wearing pads or adult diapers. Make sure to change them regularly, and always change them right after experiencing incontinence. General instructions Take qxtn-ycu-wgtcbcm and prescription medicines only as told by your health care provider. Use the bathroom about every 3 4 hours, even if you do not feel the need to urinate. Try to empty your bladder completely every time. After urinating, wait a minute. Then try to urinate again. Make sure you are in a relaxed position while urinating. If your incontinence is caused by nerve problems, keep a log of the medicines you take and the times you go to the bathroom. Keep all follow-up visits as told by your health care provider. This is important. Contact a health care provider if: You have pain that gets worse. Your incontinence gets worse. Get help right away if: You have a fever or chills. You are unable to urinate. You have redness in your groin area or down your legs. Summary Urinary incontinence refers to a condition in which a person is unable to control where and when to pass urine. This condition may be caused by medicines, infection, weak bladder muscles, weak pelvic floor muscles, enlargement of the prostate (in men), or surgery. The following factors increase your risk for developing this condition: older age, obesity, and childbirth, menopause, neurological diseases, and chronic coughing. There are several types of urinary incontinence. They include urge incontinence, stress incontinence, overflow incontinence, and functional incontinence. This condition is usually treated first with lifestyle and behavioral changes, such as quitting smoking, eating a healthier diet, and doing regular pelvic floor exercises. Other treatment options include medicines, bulking agents, medical devices, electrical nerve stimulation, or surgery. This information is not intended to replace advice given to you by your health care provider. Make sure you discuss any questions you have with your health care provider. Document Released: 09/13/2005 Document Revised: 08/16/2018 Document Reviewed: 11/15/2017 [employer] Patient Education 2020 [employer]. Follow Up Care 11/14/2021 11:50:03 With:ELISA HALEY, Mir Bender, URL Address: [address] [place] [address]- When: Unknown [facility] Hospital Discharge instructions 11-14-2021 Note Date & Type Note Facility 11-14-2021 Hospital Discharge instructions Patient Education 11/14/2021 11:43:41 Calorie Counting for Weight Loss Calorie Counting for Weight Loss Calories are units of energy. Your body needs a certain amount of calories from food to keep you going throughout the day. When you eat more calories than your body needs, your body stores the extra calories as fat. When you eat fewer calories than your body needs, your body miranda fat to get the energy it needs. Calorie counting means keeping track of how many calories you eat and drink each day. Calorie counting can be helpful if you need to lose weight. If you make sure to eat fewer calories than your body needs, you should lose weight. Ask your health care provider what a healthy weight is for you. For calorie counting to work, you will need to eat the right number of calories in a day in order to lose a healthy amount of weight per week. A dietitian can help you determine how many calories you need in a day and will give you suggestions on how to reach your calorie goal. A healthy amount of weight to lose per week is usually 1 2 lb (0.5 0.9 kg). This usually means that your daily calorie intake should be reduced by 500 750 calories. Eating 1,200 1,500 calories per day can help most women lose weight. Eating 1,500 1,800 calories per day can help most men lose weight. What is my plan? My goal is to have calories per day. If I have this many calories per day, I should lose around pounds per week. What do I need to know about calorie counting? In order to meet your daily calorie goal, you will need to: Find out how many calories are in each food you would like to eat. Try to do this before you eat. Decide how much of the food you plan to eat. Write down what you ate and how many calories it had. Doing this is called keeping a food log. To successfully lose weight, it is important to balance calorie counting with a healthy lifestyle that includes regular activity. Aim for 150 minutes of moderate exercise (such as walking) or 75 minutes of vigorous exercise (such as running) each week. Where do I find calorie information? The number of calories in a food can be found on a Nutrition Facts label. If a food does not have a Nutrition Facts label, try to look up the calories online or ask your dietitian for help. Remember that calories are listed per serving. If you choose to have more than one serving of a food, you will have to multiply the calories per serving by the amount of servings you plan to eat. For example, the label on a package of bread might say that a serving size is 1 slice and that there are 90 calories in a serving. If you eat 1 slice, you will have eaten 90 calories. If you eat 2 slices, you will have eaten 180 calories. How do I keep a food log? Immediately after each meal, record the following information in your food log: What you ate. Don't forget to include toppings, sauces, and other extras on the food. How much you ate. This can be measured in cups, ounces, or number of items. How many calories each food and drink had. The total number of calories in the meal. Keep your food log near you, such as in a small notebook in your pocket, or use a mobile mikaela or website. Some programs will calculate calories for you and show you how many calories you have left for the day to meet your goal. What are some calorie counting tips? Use your calories on foods and drinks that will fill you up and not leave you hungry: ?Some examples of foods that fill you up are nuts and nut butters, vegetables, lean proteins, and high-fiber foods like whole grains. High-fiber foods are foods with more than 5 g fiber per serving. ?Drinks such as sodas, specialty coffee drinks, alcohol, and juices have a lot of calories, yet do not fill you up. Eat nutritious foods and avoid empty calories. Empty calories are calories you get from foods or beverages that do not have many vitamins or protein, such as candy, sweets, and soda. It is better to have a nutritious high-calorie food (such as an avocado) than a food with few nutrients (such as a bag of chips). Know how many calories are in the foods you eat most often. This will help you calculate calorie counts faster. Pay attention to calories in drinks. Low-calorie drinks include water and unsweetened drinks. Pay attention to nutrition labels for low fat or fat free foods. These foods sometimes have the same amount of calories or more calories than the full fat versions. They also often have added sugar, starch, or salt, to make up for flavor that was removed with the fat. Find a way of tracking calories that works for you. Get creative. Try different apps or programs if writing down calories does not work for you. What are some portion control tips? Know how many calories are in a serving. This will help you know how many servings of a certain food you can have. Use a measuring cup to measure serving sizes. You could also try weighing out portions on a kitchen scale. With time, you will be able to estimate serving sizes for some foods. Take some time to put servings of different foods on your favorite plates, bowls, and cups so you know what a serving looks like. Try not to eat straight from a bag or box. Doing this can lead to overeating. Put the amount you would like to eat in a cup or on a plate to make sure you are eating the right portion. Use smaller plates, glasses, and bowls to prevent overeating. Try not to multitask (for example, watch TV or use your computer) while eating. If it is time to eat, sit down at a table and enjoy your food. This will help you to know when you are full. It will also help you to be aware of what you are eating and how much you are eating. What are tips for following this plan? Reading food labels Check the calorie count compared to the serving size. The serving size may be smaller than what you are used to eating. Check the source of the calories. Make sure the food you are eating is high in vitamins and protein and low in saturated and trans fats. Shopping Read nutrition labels while you shop. This will help you make healthy decisions before you decide to purchase your food. Make a grocery list and stick to it. Cooking Try to cook your favorite foods in a healthier way. For example, try baking instead of frying. Use low-fat dairy products. Meal planning Use more fruits and vegetables. Half of your plate should be fruits and vegetables. Include lean proteins like poultry and fish. How do I count calories when eating out? Ask for smaller portion sizes. Consider sharing an entree and sides instead of getting your own entree. If you get your own entree, eat only half. Ask for a box at the beginning of your meal and put the rest of your entree in it so you are not tempted to eat it. If calories are listed on the menu, choose the lower calorie options. Choose dishes that include vegetables, fruits, whole grains, low-fat dairy products, and lean protein. Choose items that are boiled, broiled, grilled, or steamed. Stay away from items that are buttered, battered, fried, or served with cream sauce. Items labeled crispy are usually fried, unless stated otherwise. Choose water, low-fat milk, unsweetened iced tea, or other drinks without added sugar. If you want an alcoholic beverage, choose a lower calorie option such as a glass of wine or light beer. Ask for dressings, sauces, and syrups on the side. These are usually high in calories, so you should limit the amount you eat. If you want a salad, choose a garden salad and ask for grilled meats. Avoid extra toppings like bah, cheese, or fried items. Ask for the dressing on the side, or ask for olive oil and vinegar or lemon to use as dressing. Estimate how many servings of a food you are given. For example, a serving of cooked rice is cup or about the size of half a baseball. Knowing serving sizes will help you be aware of how much food you are eating at restaurants. The list below tells you how big or small some common portion sizes are based on everyday objects: ?1 oz 4 stacked dice. ?3 oz 1 deck of cards. ?1 tsp 1 . ?1 Tbsp a ping-pong ball. ?2 Tbsp 1 ping-pong ball. ? cup baseball. ?1 cup 1 baseball. Summary Calorie counting means keeping track of how many calories you eat and drink each day. If you eat fewer calories than your body needs, you should lose weight. A healthy amount of weight to lose per week is usually 1 2 lb (0.5 0.9 kg). This usually means reducing your daily calorie intake by 500 750 calories. The number of calories in a food can be found on a Nutrition Facts label. If a food does not have a Nutrition Facts label, try to look up the calories online or ask your dietitian for help. Use your calories on foods and drinks that will fill you up, and not on foods and drinks that will leave you hungry. Use smaller plates, glasses, and bowls to prevent overeating. This information is not intended to replace advice given to you by your health care provider. Make sure you discuss any questions you have with your health care provider. Document Released: 08/06/2006 Document Revised: 04/25/2019 Document Reviewed: 07/06/2017 [employer] Patient Education 2020 [employer] 11/14/2021 11:43:28 Overactive Bladder, Adult Overactive Bladder, Adult Overactive bladder refers to a condition in which a person has a sudden need to pass urine. The person may leak urine if he or she cannot get to the bathroom fast enough (urinary incontinence). A person with this condition may also wake up several times in the night to go to the bathroom. Overactive bladder is associated with poor nerve signals between your bladder and your brain. Your bladder may get the signal to empty before it is full. You may also have very sensitive muscles that make your bladder squeeze too soon. These symptoms might interfere with daily work or social activities. What are the causes? This condition may be associated with or caused by: Urinary tract infection. Infection of nearby tissues, such as the prostate. Prostate enlargement. Surgery on the uterus or urethra. Bladder stones, inflammation, or tumors. Drinking too much caffeine or alcohol. Certain medicines, especially medicines that get rid of extra fluid in the body (diuretics). Muscle or nerve weakness, especially from: ?A spinal cord injury. ?Stroke. ?Multiple sclerosis. ?Parkinson's disease. Diabetes. Constipation. What increases the risk? You may be at greater risk for overactive bladder if you: Are an older adult. Smoke. Are going through menopause. Have prostate problems. Have a neurological disease, such as stroke, dementia, Parkinson's disease, or multiple sclerosis (MS). Eat or drink things that irritate the bladder. These include alcohol, spicy food, and caffeine. Are overweight or obese. What are the signs or symptoms? Symptoms of this condition include: Sudden, strong urge to urinate. Leaking urine. Urinating 8 or more times a day. Waking up to urinate 2 or more times a night. How is this diagnosed? Your health care provider may suspect overactive bladder based on your symptoms. He or she will diagnose this condition by: A physical exam and medical history. Blood or urine tests. You might need bladder or urine tests to help determine what is causing your overactive bladder. You might also need to see a health care provider who specializes in urinary tract problems (urologist). How is this treated? Treatment for overactive bladder depends on the cause of your condition and whether it is mild or severe. You can also make lifestyle changes at home. Options include: Bladder training. This may include: ?Learning to control the urge to urinate by following a schedule that directs you to urinate at regular intervals (timed voiding). ?Doing Kegel exercises to strengthen your pelvic floor muscles, which support your bladder. Toning these muscles can help you control urination, even if your bladder muscles are overactive. Special devices. This may include: ?Biofeedback, which uses sensors to help you become aware of your body's signals. ?Electrical stimulation, which uses electrodes placed inside the body (implanted) or outside the body. These electrodes send gentle pulses of electricity to strengthen the nerves or muscles that control the bladder. ?Women may use a plastic device that fits into the vagina and supports the bladder (pessary). Medicines. ?Antibiotics to treat bladder infection. ?Antispasmodics to stop the bladder from releasing urine at the wrong time. ?Tricyclic antidepressants to relax bladder muscles. ?Injections of botulinum toxin type A directly into the bladder tissue to relax bladder muscles. Lifestyle changes. This may include: ?Weight loss. Talk to your health care provider about weight loss methods that would work best for you. ?Diet changes. This may include reducing how much alcohol and caffeine you consume, or drinking fluids at different times of the day. ?Not smoking. Do not use any products that contain nicotine or tobacco, such as cigarettes and e-cigarettes. If you need help quitting, ask your health care provider. Surgery. ?A device may be implanted to help manage the nerve signals that control urination. ?An electrode may be implanted to stimulate electrical signals in the bladder. ?A procedure may be done to change the shape of the bladder. This is done only in very severe cases. Follow these instructions at home: Lifestyle Make any diet or lifestyle changes that are recommended by your health care provider. These may include: ?Drinking less fluid or drinking fluids at different times of the day. ?Cutting down on caffeine or alcohol. ?Doing Kegel exercises. ?Losing weight if needed. ?Eating a healthy and balanced diet to prevent constipation. This may include: ?Eating foods that are high in fiber, such as fresh fruits and vegetables, whole grains, and beans. ?Limiting foods that are high in fat and processed sugars, such as fried and sweet foods. General instructions Take inol-szn-iwnsvmb and prescription medicines only as told by your health care provider. If you were prescribed an antibiotic medicine, take it as told by your health care provider. Do not stop taking the antibiotic even if you start to feel better. Use any implants or pessary as told by your health care provider. If needed, wear pads to absorb urine leakage. Keep a journal or log to track how much and when you drink and when you feel the need to urinate. This will help your health care provider monitor your condition. Keep all follow-up visits as told by your health care provider. This is important. Contact a health care provider if: You have a fever. Your symptoms do not get better with treatment. Your pain and discomfort get worse. You have more frequent urges to urinate. Get help right away if: You are not able to control your bladder. Summary Overactive bladder refers to a condition in which a person has a sudden need to pass urine. Several conditions may lead to an overactive bladder. Treatment for overactive bladder depends on the cause and severity of your condition. Follow your health care provider's instructions about lifestyle changes, doing Kegel exercises, keeping a journal, and taking medicines. This information is not intended to replace advice given to you by your health care provider. Make sure you discuss any questions you have with your health care provider. Document Released: 06/02/2010 Document Revised: 11/27/2019 Document Reviewed: 08/22/2018 [employer] Patient Education 2019 [employer] 11/14/2021 11:43:25 Benign Prostatic Hyperplasia Benign Prostatic Hyperplasia Benign prostatic hyperplasia (BPH) is an enlarged prostate gland that is caused by the normal aging process and not by cancer. The prostate is a walnut-sized gland that is involved in the production of semen. It is located in front of the rectum and below the bladder. The bladder stores urine and the urethra is the tube that carries the urine out of the body. The prostate may get bigger as a man gets older. An enlarged prostate can press on the urethra. This can make it harder to pass urine. The build-up of urine in the bladder can cause infection. Back pressure and infection may progress to bladder damage and kidney (renal) failure. What are the causes? This condition is part of a normal aging process. However, not all men develop problems from this condition. If the prostate enlarges away from the urethra, urine flow will not be blocked. If it enlarges toward the urethra and compresses it, there will be problems passing urine. What increases the risk? This condition is more likely to develop in men over the age of 50 years. What are the signs or symptoms? Symptoms of this condition include: Getting up often during the night to urinate. Needing to urinate frequently during the day. Difficulty starting urine flow. Decrease in size and strength of your urine stream. Leaking (dribbling) after urinating. Inability to pass urine. This needs immediate treatment. Inability to completely empty your bladder. Pain when you pass urine. This is more common if there is also an infection. Urinary tract infection (UTI). How is this diagnosed? This condition is diagnosed based on your medical history, a physical exam, and your symptoms. Tests will also be done, such as: A post-void bladder scan. This measures any amount of urine that may remain in your bladder after you finish urinating. A digital rectal exam. In a rectal exam, your health care provider checks your prostate by putting a lubricated, gloved finger into your rectum to feel the back of your prostate gland. This exam detects the size of your gland and any abnormal lumps or growths. An exam of your urine (urinalysis). A prostate specific antigen (PSA) screening. This is a blood test used to screen for prostate cancer. An ultrasound. This test uses sound waves to electronically produce a picture of your prostate gland. Your health care provider may refer you to a specialist in kidney and prostate diseases (urologist). How is this treated? Once symptoms begin, your health care provider will monitor your condition (active surveillance or watchful waiting). Treatment for this condition will depend on the severity of your condition. Treatment may include: Observation and yearly exams. This may be the only treatment needed if your condition and symptoms are mild. Medicines to relieve your symptoms, including: ?Medicines to shrink the prostate. ?Medicines to relax the muscle of the prostate. Surgery in severe cases. Surgery may include: ?Prostatectomy. In this procedure, the prostate tissue is removed completely through an open incision or with a laparoscope or robotics. ?Transurethral resection of the prostate (TURP). In this procedure, a tool is inserted through the opening at the tip of the penis (urethra). It is used to cut away tissue of the inner core of the prostate. The pieces are removed through the same opening of the penis. This removes the blockage. ?Transurethral incision (TUIP). In this procedure, small cuts are made in the prostate. This lessens the prostate's pressure on the urethra. ?Transurethral microwave thermotherapy (TUMT). This procedure uses microwaves to create heat. The heat destroys and removes a small amount of prostate tissue. ?Transurethral needle ablation (TUNA). This procedure uses radio frequencies to destroy and remove a small amount of prostate tissue. ?Interstitial laser coagulation (ILC). This procedure uses a laser to destroy and remove a small amount of prostate tissue. ?Transurethral electrovaporization (TUVP). This procedure uses electrodes to destroy and remove a small amount of prostate tissue. ?Prostatic urethral lift. This procedure inserts an implant to push the lobes of the prostate away from the urethra. Follow these instructions at home: Take zapr-key-spljcan and prescription medicines only as told by your health care provider. Monitor your symptoms for any changes. Contact your health care provider with any changes. Avoid drinking large amounts of liquid before going to bed or out in public. Avoid or reduce how much caffeine or alcohol you drink. Give yourself time when you urinate. Keep all follow-up visits as told by your health care provider. This is important. Contact a health care provider if: You have unexplained back pain. Your symptoms do not get better with treatment. You develop side effects from the medicine you are taking. Your urine becomes very dark or has a bad smell. Your lower abdomen becomes distended and you have trouble passing your urine. Get help right away if: You have a fever or chills. You suddenly cannot urinate. You feel lightheaded, or very dizzy, or you faint. There are large amounts of blood or clots in the urine. Your urinary problems become hard to manage. You develop moderate to severe low back or flank pain. The flank is the side of your body between the ribs and the hip. These symptoms may represent a serious problem that is an emergency. Do not wait to see if the symptoms will go away. Get medical help right away. Call your local emergency services (911 in the [place] Do not drive yourself to the hospital. Summary Benign prostatic hyperplasia (BPH) is an enlarged prostate that is caused by the normal aging process and not by cancer. An enlarged prostate can press on the urethra. This can make it hard to pass urine. This condition is part of a normal aging process and is more likely to develop in men over the age of 50 years. Get help right away if you suddenly cannot urinate. This information is not intended to replace advice given to you by your health care provider. Make sure you discuss any questions you have with your health care provider. Document Released: 08/06/2006 Document Revised: 07/01/2019 Document Reviewed: 09/10/2017 [employer] Patient Education 2020 [employer] Follow Up Care 08/01/2021 12:20:44 With:ELISA HALEY, FATOUMATA Gabriel Address: [facility] [address] , [place] [address]- [phone] When:11/14/2022 Comments:1 year fu [facility] Evaluation + Plan note Note Date & Type Note Facility Evaluation + Plan note Future Appointments Appointment Date:11/17/2022 10:15:00 AM Scheduled Provider:Mir RING MD Location:[facility] Appointment Type:URO Office Visit [facility] Evaluation + Plan note Note Date & Type Note Facility Evaluation + Plan note Future Appointments Appointment Date:03/19/2023 10:15:00 AM Scheduled Provider:Mir RING MD Location:[facility] Appointment Type:URO Office Visit [facility] Evaluation + Plan note Note Date & Type Note Facility Evaluation + Plan note Future Appointments Appointment Date:03/21/2024 09:30:00 AM Scheduled Provider:Mir RING MD Location:[facility] Appointment Type:URO Office Visit [facility] Hospital course Narrative Note Date & Type Note Facility Hospital course Narrative No data available for this section [facility] Progress note Note Date & Type Note Facility Progress note No data available for this section [facility] [employer] Summary Purpose Family History No Family History Records Found Relationship Condition Age at Onset Recorded Date/T geo father Coronary artery disease Unknown Advance Directives No Advanced Directives Records FoundNo Advanced Directives Records FoundNo Advanced Directives Records FoundNo Advanced Directives Records FoundNo Advanced Directives Records FoundNo Advanced Directives Records Found Assessments No Assessments Information AvailableNo Assessments Information Available Additional Source Comments (unrecognized sect ion and content) No Status Records FoundNo Status Records FoundNo Status Records FoundNo Status Records FoundNo Status Records FoundNo Status Records Found INFORMATION SOURCE (unrecogn ized section and content) DATE CREATED AUTHOR 08/10/2018 [facility] DATE CREATED AUTHOR AUTHOR'S ORGANIZ ATION 08/12/2018 [facility] DATE CREATED AUTHOR AUTHOR'S ORGANIZ ATION 08/27/2021 [facility] DATE CREATED AUTHOR AUTHOR'S ORGANIZ ATION 09/20/2021 [facility] DATE CREATED AUTHOR AUTHOR'S ORGANIZ ATION 10/31/2022 [facility] DATE CREATED AUTHOR AUTHOR'S ORGANIZ ATION 03/20/2023 [facility] FOR RECORDS PERTAINING TO PATIENTS WHO ARE OR HAVE BEEN ENROLLED IN A CHEMICAL DEPENDENCY/SUBSTANCEABUSE PROGRAM, SOME INFORMATION MAY BE OMITTED. This clinical summary was aggregated from multiple sources. Caution should be exercised in using it in the provision of clinical care. This summary normalizes information from multiple sources, and as a consequence, information in this document may materially change the coding, format and clinical context of patient data. In addition, data may be omitted in some cases. CLINICAL DECISIONS SHOULD BE BASED ON THE PRIMARY CLINICAL RECORDS. [employer] provides no warranty or guarantee of the accuracy or completeness of information in this document.
[2023-08-31 09:46] LABS: Chol HDL Ratio 2.5; Cholesterol 110 mg/dL (<=200); HDL Cholesterol 44 mg/dL (40-60); LDL Cholesterol Calculated 52.2 mg/dL; Triglycerides 69 mg/dL (<=150); VLDL CHOLESTEROL 13.8 mg/dL
== END 2023-08-31 02:39 | disposition home or self-care (01) ==
LOC: LAB 02:38
PROVIDERS: PCP Family Medicine; Visit Provider Family Medicine
DX: E78.5 Hyperlipidemia, unspecified (principal)
CPT/HCPCS: 36415; 80061

== ENCOUNTER 2023-09-16 20:40 | Outpatient (REF) | payer MEDICARE, MEDICAID, SELFPAY ==
--- OUTSIDE RECORDS SUMMARY | 2023-09-17 03:42 | XMS_ITS | CCD ---
Author Name Unknown Address [address] [place] [address] Organization [facility] Care Team Providers Care Couture Alterations Dressmaker Name Role Phone ARCHIE HERNÁNDEZ Unavailable Unavailable CARLOS ALCANTAR Unavailable Unavailable ARCHIE HERNÁNDEZ Unavailable Unavailable CARLOS ALCNATAR Unavailable Unavailable NONE, XXXX Primary Care Physician Unavailab JJ Boyer Admitting Unavailable JJ DACOSTA Attending Unavailable ORTIZ, DR GONZALEZ Primary Care Unavailable JJ DACOSTA Consulting Unavailable MIS, DR CORBIN Admitting Unavailable MIS, DR CORBIN Attending Unavailable ORTIZ, DR GONZALEZ Primary Care Unavailable MISC, DR CORBIN Consulting Unavailable Mir RING Attending Unavailable Mir RING Attending Unavailable Mir RING Attending Unavailable Unavailable Unavailable Unavailable Allergies Allergy Classification Reported Allergen(s) Allergy Type Date of Onset Reaction(s) Facility (1 source) No Known Medication Allergies; Translations: [No Known Medication Allergies] Propensity to adverse reactions (disorder) [facility] Repository Medications Current Medications Medication Drug Class(es) [...] Refills(s) 0 Start Date: 05/20/21 Status: Ordered Milagros-Tussin DM 10 mg-100 mg/5 mL oral liquid [...] 0 Start Date: 05/20/21 Status: Ordered sennosides, assisted 8.6 mg oral tablet (4 sources) Start: 05-20-2021 take 1 mg by mouth once daily at bedtime senna 8.6 mg Tab mg tab(s), Oral, Once a day (at bedtime), Refills(s) 0 Start Date: 05/20/21 Status: Ordered Start: 08-15-2019 take 2 tablets by [facility] once daily Sennosides Active 2 TAB Oral [...] Test Name Value Interpretation Reference Range Facility [facility]-20 [facility] [id number] 0702 [id number]#1.00C D:127 Normal [facility] Ambulatory Visit Summaryon 0 03-19-2023 Ambulatory Visit [...] year Where: [facility] [address], [place] [address]- [phone] Medications What How Much When Instructions Unchanged [...] prescribing physician (more content not included)... Normal [facility] Patient Educationon 03-19-20 23 Patient Education Urology [...] Follow these instructions at home: ? Take pvya-csw-xwlwhon and prescription medicines only as told by [...] the medicine (more content not included)... Normal [facility] Urology Office/Clinic Noteon 03-19-2023 Urology Office/Clinic Note [...] makes it to the restroom. Spoke to senior living staff ([facility]), nurse stated patient is always incontinent and rarely ever voids on his own. Follow-up With When Contact Information ELISA HALEY, Mir Bender, URL [facility] [address], [place] [address]- [phone] Additional Instructions: 1 year Patient Education Benign [...] Use:., 03 (more content not included)... Normal [facility] Comment on above: Result Comment: Elec tronically [...] with ELISA HALEY, FATOUMATA Gabriel When: Where: [address] [place], [place] [id number]- Medications What How Much When Instructions Unchanged [...] this condit (more content not included)... Normal [facility] Record[facility] 11-17 [facility] [id number] [id number]#1.00C D:127 Normal [facility] Patient Educationon 11-18-19 Patient Education Urology Urinary [...] stimulation). ? For women, using a medical physics teacher to prevent urine leaks. This is a [...] after experiencing incontinence. General instructions ? Take yfbd-utg-turlvws and prescription medicines only as (more content not included)... Normal [facility] Urology Office/Clinic Noteon 11-17-2022 Urology Office/Clinic Note Chief Complaint 1yr follow up HPI Staff 1yr to BPH Incontinence w/o sensory awareness & Frequency. *Flomax therapy was DC'd at time of last encounter Pt states he does wear a brief. Denies incontinence/leaking. Did call [facility], Spoke to pt's nurse, stated pt is [...] urge to void when sleeping. Spoke to senior living staff ([facility]), nurse stated patient is always incontinent and rarely ever voids on his own. Follow-up With When Contact Information ELISA HALEY, Mir Bender, [place] [address] [place] [address]- Additional Instructions: 4 months to starting new [...] losartan 1 (more content not included)... Normal [facility] Comment on above: Result Comment: Elec tronically Signed By: Mir RING MD\.br\Date and Time Signed: 11/17/22 11:36 EDT\.br\Electronically Co-Signed By: Sera Calhoun.nikki\Date and Time Co-Signed: 11/17/22 11:34 EDT URIC ACID SERUMon 10-27-2022 Urate [Mass/Vol] 4.2 mg/dL Normal 3.5-7.2 [facility] Comment on above: Performed By: #### U VICTOR HUGO #### [facility] [address] [address] [address] Neymar Guy URIC ACID SERUMon 07-03-2022 Urate [Mass/Vol] 4.3 mg/dL Normal 3.5-7.2 [facility] Comment on above: Performed By: #### U VICTOR HUGO #### [facility] [id number] Neymar Guy Addendum Reporton 08-26-2021 Addendum Report [facility] Department of Pathology [address] [place] [address] Name: BRAD HUTCHISON : 1945 Financial [id number] Number: Gender: Male Location: [facility] Admit 76 years Attending MIR RING Age: Provider: Ordering MIR RING Provider: Consulting: Surgical Pathology Report ACCESSION: COLLECTED DATE/TIME: RECEIVED DATE/TIME: PATHOLOGIST: [id number] 06/30/2021 16:30 EST 07/01/2021 12:02 EST FERNANDO HALEY, JEFF GLASS Surgical Path Addendum Report A PIN4 immunostain was used in evaluation of this specimen and is negative. 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 - NEGATIVE FOR MALIGNANCY. JEFF KING PATHOLOGIST (Electronic Signature) Date Verified 07/07/2021 CL Clinical Data PRE-OP DIAGNOSIS: Not specified POST-OP DIAGNOSIS: Enlarged prostate with lower urinary tract symptoms PROCEDURES: Cystoscopy, TURP SPECIMEN: Prostate tissue / Ambulatory Surgery ____ Print Date08/26/2021 15:01 EST Number: Time: [facility] Department of Pathology [address] [place] [id number] Name: BRAD HUTCHISON : 1945 Financial [id number] Number: Gender: Male Location: [facility] Admit 76 years Attending MIR RING Age: Provider: Ordering MIR RING Provider: Consulting: Surgical Pathology Report ACCESSION: COLLECTED DATE/TIME: RECEIVED DATE/TIME: PATHOLOGIST: [id number] 06/30/2021 16:30 EST 07/01/2021 12:02 EST FERNANDO HALEY, JEFF ORTA Gross Description Labeled prostate tissue. Received in formalin are fragments of firm du soft tissue measuring 2.0 x 1.0 x 0.6 cm in aggregate. The specimen is entirely submitted in cassette A1- A2. HW/elliot 07/01/2021 Tissue pathology report for: [facility], [address] [place] [address]; [facility]OLOG[facility] SERVICES [facility] (CLIA #[id number]) in cooperation with [facility] at [address] [place] [address] (CLIA #[id number]) Codes CPT CODE: 19263 [id number] ____ Print Date08/26/2021 15:01 EST Number: Time: Normal [facility] Comment on above: Performed By: #### 9 [id number], [id number] #### [facility] [address] [place] [address] Cell Support Operator: Alexander Yen MD COVID-19 [facility] 08-02-2021 SARS-CoV-2 (COVID-19) RNA PERRY+probe Ql (Unsp spec) Negative Normal Negative [facility] Comment on above: Order Comment: Healt hcare Worker?: N Result Comment: Testing for SARS-CoV-2 by RT-PCR This test was developed and its performance characteristics determined by [employer] [facility] and validated at the [facility]. This test has not been FDA cleared [...] is terminated or revoked sooner. PERFORMED BY: [place] [address] PATHOLOGIST LEHR STRIPPER GERI MANZANO M.D. Performed By: #### A MM, BMP, HS TROP, CBC #### [address] ECG 12 lead ECGon 08-02-2021 ECG 12 lead ECG [facility] [place] [address] [place] [address] Electrocardiograph Report Signed Patient: Brad Hutchison MR#: [id number] : 1945 Acct:[id number] Age/Sex: 76 / M ADM Date: 08/01/21 Loc: Room: [address] [place] [address] Type: ADM INOo Attending Dr: Lynn Rivas [...] MUS Signed By Ivan Baldwin MD [address] [facility] echo transthoracicon [facility] echo transthoracic [facility] [address] Echocardiogram Signed Patient: Brad Hutchison MR#: [id number] : 1945 Acct:[id number] Age/Sex: 76 / M ADM Date: 08/01/21 Loc: Room: [address] [place] [address] Type: ADM INOo Attending Dr: Lynn Rivas MD Ordering Provider: Lynn Rivas MD Date of Service: 08/01/21 ECH/[facility] echo transthoracic: syncope Copies to: Rosanne Chaparro MD, [facility] Lynn Rivas MD Height: 69.5 in Weight: [...] 08/02/21 1201 Dictated By: Rosanne Chaparro MD, [facility] 08/02/21 0833 Signed By: 08/02/21 1201 Normal [facility] Ammoniaon 08-01-2021 Ammonia (P) [Moles/Vol] 12 umol/L Normal 11-35 [facility] Comment on above: Result Comment: PERF ORMED BY: [place] [address] PATHOLOGIST LEHR STRIPPER GERI MANZANO M.D. Performed By: #### A MM, BMP, HS TROP, CBC #### [facility] [address] Basic Metabolic Panelon 07-20 Calcium [Mass/Vol] 8.3 mg/dL Normal 8.2-10.2 [facility] Comment on above: Performed By: #### A MM, BMP, HS TROP, CBC #### [facility] [address] Chloride [Moles/Vol] 101 mmol/L Normal 95-114 [facility] Comment on above: Performed By: #### A MM, BMP, HS TROP, CBC #### [facility] [address] CO2 [Moles/Vol] 21.4 mmol/L Low 22.0-30.0 [facility] Comment on above: Performed By: #### A MM, BMP, HS TROP, CBC #### [facility] [address] [place] [address] [place] Creatinine [Mass/Vol] 2.15 mg/dL High 0.64-1.27 [facility] Comment on above: Performed By: #### A MM, BMP, HS TROP, CBC #### [facility] [address] [place] [address] [place] Creatinine Clr Calc Pharmacy 31.12 Normal [facility] Comment on above: Result Comment: PERF ORMED BY: [place] [address] PATHOLOGIST LEHR STRIPPER GERI MANZANO M.D. Performed By: #### A MM, BMP, HS TROP, CBC #### [facility] [address] Estimated GFR ( Ruthy 37 Normal [facility] Comment on above: Result Comment: GFR estimated reference range: According to KDOQI guidelines, <60 ml/min/1.73m2 is sufficient to diagnose a patient with chronic kidney disease. Performed By: #### A MM, BMP, HS TROP, CBC #### [facility] [address] [place] [address] [place] Estimated GFR (Non- Am 30 Normal [facility] Comment on above: Performed By: #### A MM, BMP, HS TROP, CBC #### [facility] [address] Glucose [Mass/Vol] 126 mg/dL High 70-100 [facility] Comment on above: Result Comment: Kite om Glucose Reference Range is dependent on time and content of last meal. Glucose of more than 200 mg/dL in a nonstressed, ambulatory subject supports the diagnosis of Diabetes Mellitus. ADA recommended reference range Performed By: #### A MM, BMP, HS TROP, CBC #### [facility] [address] Potassium [Moles/Vol] 3.9 mmol/L Normal 3.5-5.1 [facility] Comment on above: Performed By: #### A MM, BMP, HS TROP, CBC #### [facility] [address] Sodium [Moles/Vol] 133 mmol/L Low 136-146 [facility] Comment on above: Performed By: #### A MM, BMP, HS TROP, CBC #### [facility] [address] [place] [address] Urea nitrogen [Mass/Vol] 34 mg/dL High 9-23 [facility] Comment on above: Performed By: #### A MM, BMP, HS TROP, CBC #### [facility] [address] [place] [address] COVID-19 Antigenon 1 COVID-19 Antigen Healthcare Worker?: [...] its performance Sarah Disclaimer characteristic determined by [employer] and Sarah Disclaimer validated at [facility]. This Sarah Disclaimer test has not been [...] is terminated or revoked sooner. PERFORMED BY: [place] [address] PATHOLOGIST LEHR STRIPPER GERI MANZANO M.D. [facility] Comment on above: Performed By: #### S TUYET, COVID-19 SARAH #### [address] cervical spine wo conon 1 10-02-2020 CT cervical spine wo con [facility] [place] [address] CT Scan Report Signed Patient: Brad Hutchison MR#: [id number] : 1945 Acct:[id number] Age/Sex: 76 / M ADM Date: 08/01/21 Loc: ER Room: Type: [facility] ER Attending Dr: Ordering Provider: Porfirio Pryor [...] Champ Rae M.D.08/01/2021 3:59 PM Dictation Location: [address] [place] [address] Transcribed By: [facility] 08/01/211558 Dictated By: Champ Rae DO 08/01/211550 Signed By: 08/01/21 155 Normal [facility] CT head/brain wo conon 08-01 CT head/brain wo con [facility] [address] CT Scan Report Signed Patient: Brad Hutchison MR#: [id number] : 1945 Acct:[id number] Age/Sex: 76 / M ADM Date: 08/01/21 Loc: ER Room: Type: [facility] ER Attending Dr: Ordering Provider: Porfirio Pryor [...] Champ Rae M.D.08/01/2021 3:51 PM Dictation Location: [place] [address] Transcribed By: [facility] 08/01/21 155 Dictated By: Champ Rae DO 08/01/21 1547 Signed By: 08/01/21 155 Normal [facility] Complete Blood Count Auto Di ffon 08-01-2021 Basophils (Bld) [#/Vol] 0.1 10*3/uL Normal 0.0-0.2 [facility] Comment on above: Result Comment: PERF ORMED BY: [place] [address] PATHOLOGIST LEHR STRIPPER GERI MANZANO M.D. Performed By: #### A MM, BMP, HS TROP, CBC #### [facility] [address] Basophils/100 WBC (Bld) 1.3 % Normal . [facility] Comment on above: Performed By: #### A MM, BMP, HS TROP, CBC #### [facility] [address] [place] [address] [place] Eosinophils (Bld) [#/Vol] 0.3 10*3/uL Normal 0.0-0.45 [facility] Comment on above: Performed By: #### A MM, BMP, HS TROP, CBC #### [facility] [address] [place] [address] [place] Eosinophils/100 WBC (Bld) 3.4 % Normal . [facility] Comment on above: Performed By: #### A MM, BMP, HS TROP, CBC #### [facility] [address] [place] [address] [place] Erythrocyte distribution width (RBC) [Ratio] 13.1 % Normal 12.0-14.8 [facility] Comment on above: Performed By: #### A MM, BMP, HS TROP, CBC #### [address] Hematocrit (Bld) [Volume fraction] 35.7 % Low 38.8-50.0 [facility] Comment on above: Performed By: #### A MM, BMP, HS TROP, CBC #### [address] Hemoglobin (Bld) [Mass/Vol] 12.0 g/dL Low 13.0-17.0 [facility] Comment on above: Performed By: #### A MM, BMP, HS TROP, CBC #### [address] Lymphocytes (Bld) [#/Vol] 1.8 10*3/uL Normal 1.00-4.8 [facility] Comment on above: Performed By: #### A MM, BMP, HS TROP, CBC #### [address] Lymphocytes/100 WBC (Bld) 22.9 % Normal . [facility] Comment on above: Performed By: #### A MM, BMP, HS TROP, CBC #### [address] MCH (RBC) [Entitic mass] 33.9 pg Normal 27.5-35.2 [facility] Comment on above: Performed By: #### A MM, BMP, HS TROP, CBC #### [address] MCV (RBC) [Entitic vol] 100.5 fL Normal 83.5-101 [facility] Comment on above: Performed By: #### A MM, BMP, HS TROP, CBC #### [address] Mean Corpuscular HGB Conc 33.7 g/dL Normal 32.5-35.6 [facility] Comment on above: Performed By: #### A MM, BMP, HS TROP, CBC #### [address] [place] [address] [place] Monocytes (Bld) [#/Vol] 0.6 10*3/uL Normal 0.0-0.8 [facility] Comment on above: Performed By: #### A MM, BMP, HS TROP, CBC #### [facility] [address] [place] [address] [place] Monocytes/100 WBC (Bld) 7.5 % Normal . [facility] Comment on above: Performed By: #### A MM, BMP, HS TROP, CBC #### [facility] [address] [place] [address] [place] Neutrophils (Bld) [#/Vol] 5.0 10*3/uL Normal 1.8-7.7 [facility] Comment on above: Performed By: #### A MM, BMP, HS TROP, CBC #### [facility] [address] [place] [address] [place] Neutrophils/100 WBC (Bld) 64.9 % Normal . [facility] Comment on above: Performed By: #### A MM, BMP, HS TROP, CBC #### [facility] [address] [place] [address] [place] Nucleated RBC/100 WBC (Bld) [Ratio] 0.1 % Normal 0-0.5 [facility] Comment on above: Performed By: #### A MM, BMP, HS TROP, CBC #### [facility] [address] [place] [address] [place] Platelet mean volume (Bld) [Entitic vol] 9.2 fL Normal 6.6-10.1 [facility] Comment on above: Performed By: #### A MM, BMP, HS TROP, CBC #### [facility] [address] [place] [address] [place] Platelets (Bld) [#/Vol] 145 10*3/uL Low 150-450 [facility] Comment on above: Performed By: #### A MM, BMP, HS TROP, CBC #### [facility] [address] [place] [address] [place] RBC (Bld) [#/Vol] 3.55 10*6/uL Low 3.90-5.60 [facility] Comment on above: Performed By: #### A MM, BMP, HS TROP, CBC #### [facility] [address] [place] [address] WBC (Bld) [#/Vol] 7.6 10*3/uL Normal 4.5-11.0 [facility] Comment on above: Performed By: #### A MM, BMP, HS TROP, CBC #### [facility] [address] [place] [address] ECG 12 lead ECGon 08-01-2021 ECG 12 lead ECG [facility] [address] Electrocardiograph Report Signed Patient: Brad Hutchison MR#: [id number] : 1945 Acct:[id number] Age/Sex: 76 / M ADM Date: 08/01/21 Loc: Room: [address] [place] [address] Type: ADM IN Attending Dr: Lynn Rivas [...] Prolonged QT Confirmed by Porfirio Pryor DO ([id number]) on 08/01/2021 8:58:49 PM Referred By: Electronically Signed By:Porfirio Pryor DO Transcribed By: MUS Signed By Porfirio Pryor DO 2057 Normal [facility] ECG 12 lead ECG [facility] [address] Electrocardiograph Report Signed Patient: Brad Hutchison MR#: [id number] : 1945 Acct:[id number] Age/Sex: 76 / M ADM Date: 08/01/21 Loc: Room: [address] [place] [address] Type: ADM IN Attending Dr: Lynn Rivas [...] baseline artifact Confirmed by Porfirio Pryor DO ([id number]) on 08/01/2021 8:58:16 PM Referred By: Electronically Signed By:Porfirio Pryor DO Transcribed By: MUS Signed By Porfirio Pryor DO 2057 [facility] Ethyl Alcohol Profileon 07-20 Ethanol [Mass/Vol] 38 mg/dL Normal [facility] Comment on above: Performed By: #### E BRAYDEN #### [facility] [address] [place] [address] Percent Ethanol 0.038 % [facility] Comment on above: Result Comment: PERF ORMED BY: [place] [address] PATHOLOGIST LEHR STRIPPER GERI MANZANO M.D. Performed By: #### E BRAYDEN #### [facility] [address] [place] [address] Sarah Ag Negativeon 08-01-20 Sarah Ag Negative Negative Normal Negative [facility] Comment on above: Result Comment: This is a duplicate Sarah SARS Antigen (KINDRA) result to be used for statistical tracking purpose only. PERFORMED BY: [place] [address] PATHOLOGIST LEHR STRIPPER GERI MANZANO M.D. Performed By: #### S OFBJORN COVID-19 SARAH #### [facility] [address] [place] [address] Troponin I High Sensitivityo n 08-01-2021 Troponin I High Sensitivity 12 pg/mL Normal 0-20 [facility] Comment on above: Result Comment: PERF ORMED BY: [place] [address] PATHOLOGIST LEHR STRIPPER GERI MANZANO M.D. Performed By: #### A MM, BMP, HS TROP, CBC #### [address] Troponin I High Sensitivity 12 pg/mL Normal 0-20 [facility] Comment on above: Result Comment: PERF ORMED BY: [place] [address] PATHOLOGIST LEHR STRIPPER GERI MANZANO M.D. Performed By: #### A MM, BMP, HS TROP, CBC #### [address] XR chest 1V portableon 08-01 XR chest 1V portable [facility] [place] [address] [place] [address] XRay Report Signed Patient: Brad Hutchison MR#: [id number] : 1945 Acct:[id number] Age/Sex: 76 / M ADM Date: 08/01/21 Loc: ER Room: Type: [facility] ER Attending Dr: Ordering Provider: Porfirio Pryor [...] Champ Rae M.D.08/01/2021 3:35 PM Dictation Location: [place] [address] Transcribed By: [facility] 08/01/21 153 Dictated By: Champ Rae DO 08/01/21 153 Signed By: 08/01/21 153 [facility] SURGICAL PATH REPORTon 07-07 SURGICAL PATH REPORT [facility] Department of Pathology [address] [place] [address] Name: BRAD HUTCHISON : 1945 [facility] [id number] Number: Gender: Male Location: [facility] Admit 76 years Attending MIR RING Age: Provider: Ordering MIR RING Provider: Consulting: Surgical Pathology Report ACCESSION: COLLECTED DATE/TIME: RECEIVED DATE/TIME: PATHOLOGIST: [id number] 06/30/2021 16:30 EST 07/01/2021 12:02 EST FERNANDO HALEY, JEFF ORTA Final Diagnosis Report for [facility], [place] PROSTATE TISSUE, TURP: - BENIGN PROSTATIC [...] GENEVA/elliot 07/01/2021 Tissue pathology report for: [facility], [address] [place] [address]; ____ Print Date/ 07/07/2021 11:14 EST Number: Time: [facility] Department of Pathology [address] [place] [id number] Name: BRAD HUTCHISON : 1945 [employer] [id number] Number: Gender: Male Location: [facility] Admit 76 years Attending MIR RING Age: Provider: Ordering MIR RING Provider: Consulting: Surgical Pathology Report ACCESSION: COLLECTED DATE/TIME: RECEIVED DATE/TIME: PATHOLOGIST: [id number] 06/30/2021 16:30 EST 07/01/2021 12:02 EST FERNANDO HALEY, JEFF ORTA Gross Description PATHOLOGY SERVICES PROVIDED BY [facility], [facility] (CLIA #[id number]) in cooperation with [facility] at [address] [place] [address] (CLIA #[id number]) Codes CPT CODE: 93623 [id number] ____ Print Date/ 07/07/2021 11:14 EST Number: Time: Normal [facility] Comment on above: Performed By: #### 9 [id number], [id number] #### [facility] [address] [place] [address] Cell Support Operator: Alexander Yen MD Creatinine 07-29-2018 Creatinine mass conc 1.36 mg/dL High 0.50-1.30 [facility] Comment on above: Performed By: #### 1 [id number] ####[facility] [address] [place] [address] GFR/1.73 sq M.predicted MDRD vol rate/area 52 mL/min/{1.73_m2} Normal [facility] Comment on above: Result Comment: Inte rpretation for Chronic Kidney Disease:Stages 1&2 >60 Healthy or potential kidney damage.Mild decrease of GFR.Stage 3 30-59 Moderate decrease of GFR.Stage 4 15-29 Severe decrease of GFR.Stage 5 <15 Kidney failure or on dialysis. Performed By: #### 1 [id number] ####[facility] [address] [place] [address] Electrolyte Panelon 07-29-20 18 Anion gap 3 molar conc 11 mmol/L Normal 10-20 [facility] Comment on above: Performed By: #### 1 [id number] ####[facility] [address] [place] [address] Chloride molar conc 104 mmol/L Normal 98-107 [facility] Comment on above: Performed By: #### 1 [id number] ####[facility] [facility] [id number] [place] [address] HCO3 molar conc (Bld) 30 mmol/L Normal 21-32 [facility] Comment on above: Performed By: #### [id number] ####[facility] [id number] [place] [address] Potassium molar conc 3.6 mmol/L Normal 3.5-5.1 [facility] Comment on above: Performed By: #### 1 [id number] ####[facility] [id number] [place] [address] Sodium molar conc 141 mmol/L Normal 136-145 [facility]are Comment on above: Performed By: #### 1 [id number] ####[facility] [address] [place] [address] Urea Nitrogenon 07-29-2018 Urea nitrogen mass conc 20 mg/dL Normal 6-23 [facility] Comment on above: Performed By: #### 1 [id number] ####[facility] [address] [place] [address] Vital Signs Date Time Vital Sign Value Performing Clinician Javier [email or web address] 03-19-2023 10:23-0400 Blood Pressure Location Mir ELISA [facility] 03-19-2023 10:23-0400 Diastolic blood pressure 70 mm[Hg] Mir RING [facility] 03-19-2023 10:23-0400 Heart rate 68 /min Mir RING [facility] 03-19-2023 10:23-0400 Respiratory rate 16 /min Mir RING [facility] 03-19-2023 10:23-0400 Systolic blood pressure 106 mm[Hg] Mir RING [facility] 11-17-2022 10:30-0400 Blood Pressure Location Mir RING [facility] 11-17-2022 10:30-0400 Diastolic blood pressure 87 mm[Hg] Mir RING [facility] 11-17-2022 10:30-0400 Heart rate 68 /min Mir RING [facility] 11-17-2022 10:30-0400 Respiratory rate 16 /min Mir RING [facility] 11-17-2022 10:30-0400 Systolic blood pressure 128 mm[Hg] Mir RING [facility] 11-14-2021 10:55-0400 Blood Pressure Location Mir RING [facility] 11-14-2021 10:55-0400 Diastolic blood pressure 80 mm[Hg] Mir RING [facility] [place] 11-14-2021 10:55-0400 Heart rate 68 /min Mir RING [facility] [place] 11-14-2021 10:55-0400 Respiratory rate 16 /min [facility] 11-14-2021 10:55-0400 Systolic blood pressure 138 mm[Hg] [facility] Encounter Date Encounter Type Care Provider Facility Start: 03-21-2024 ambulatory Mir RING Facili ty:[facility] [place] Start: 03-19-2023 End: 03-20-2023 ambulatory Mir RING Facility:[facility] [place] Start: 03-19-2023 End: 03-19-2023 Patient [facility] [email or web address] Start: 11-17-2022 End: 11-18-2022 ambulatory Mir RING Facility:[facility] [place] Start: 11-17-2022 End: 11-17-2022 Patient encounter procedure [facility] Start: 10-27-2022 End: 10-27-[address] DOCTOR JENKINS Facility:[facility] Start: 07-03-2022 End: 07-03-2022 ambulatory JJ DACOSTA Facility:[facility] Start: 11-14-2021 End: 11-14-2021 Patient encounter procedure [facility] Start: 08-06-2018 Patient encounter procedure ARCHIE [...] Provider Fa crescencio 05-30-2022 SARS-CoV-2 (COVID-19 ) [id number] Mir RING [facility] 02-15-2022 SARS-CoV-2 mRNA (ttnezpccbjh-enah-gwtqvh e) vaccine Mir RING [facility] 08-01-2021 tetanus toxoid, redu dontae diphtheria toxoid, and acellular pertussis vaccine, adsorbed Mir RING [facility] 07-01-2021 SARS-CoV-2 (COVID-19 ) mRNA BNT-162b2 vax Mir RING [facility] 06-02-2021 influenza virus vacc ine, unspecified formulation Mir RING [facility] 04-23-2021 pneumococcal polysaccharide vaccine, 23 valent Mir RING [facility] 04-20-2021 influenza virus vacc ine, unspecified formulation Mir RING [facility] 09-22-2020 SARS-CoV-2 (COVID-19 ) mRNA BNT-162b2 vax Mir RING [facility] Comment on above: Result Comment: 2022: [id number] 09-01-2020 SARS-CoV-2 (COVID-19 ) mRNA BNT-162b2 vax Mir [employer] [facility] Comment on above: Result Comment: 2022: [id number] 06-01-2020 influenza virus vacc ine, unspecified formulation [employer] [facility] 06-17-2019 influenza virus vacc ine, unspecified formulation [employer] [facility] 06-17-2018 influenza virus vacc ine, unspecified formulation [employer] [facility] 06-11-2017 influenza virus vacc ine, unspecified formulation [employer] [facility] 07-10-2014 influenza virus vacc ine, unspecified formulation [employer] [facility] Payers Date Payer Category Payer Medicaid [id number] 1957 Medicare [id number] [id number] 1945 Unknown [id number] 2.16. [id number] 1945 Unknown [id number] 2.16.8 [id number] 1945 Unknown [id number] 2.16.8 [id number] 1945 Unknown [id number] 2.16.84 [id number] 1945 Unknown [id number] 2.16.84 [id number] 1945 Unknown [id number] 2.16.8 [id number] 1945 Unknown [id number] 2.16.8 [id number] 1945 Unknown [id number] 2.16.8 [id number] Medicare [id number] Self-pay Self Pay [id number] Social History Date Type Detail Facility Tobacco smoking stat [facility] Unknown if ever smoked [facility] Start: 1945 Sex Assigned At Male [facility] Start: 05-20-2021 End: 11-17-2022 Tobacco smoking status Never smoked tobacco (finding) [facility] Sex Assigned At Male [facility] Tobacco smoking status Never [facility] Goals Date Patient Goal Desired Activity /State Functional Status Date Assessment Result Facility 03-19-2023 Functional Status N/A [facility] 11-17-2022 Functional Status N/A [facility] Discharge instructions 03-19-2023 Note Date & [...] urethra. Follow these instructions at home: Take idlq-xqs-qgkuppl and prescription medicines only as told by [...] provider. Document Revised: 02/22/2022 Document Reviewed: 02/22/2022 [employer] Patient Education 2022 GLSS. Follow Up Care 11/17/2022 11:43:25 With:ELISA HALEY, Mir Bender, URL Address: [facility] [address] , [place] [address]- [phone] When: Unknown Comments:1 year [facility] [place] [facility] Discharge instructions 11-17-2022 Note [...] nerve stimulation). For women, using a medical physics teacher to prevent urine leaks. This is a [...] right after experiencing incontinence. General instructions Take qrqj-mci-vwwjraf and prescription medicines only as told by [...] 09/13/2005 Document Revised: 08/16/2018 Document Reviewed: 11/15/2017 [employer] Patient Education 2020 GLSS. Follow Up Care 11/14/2021 11:50:03 With:ELISA HALEY, Mir Bender, URL Address: [address] [place] [address]- When: Unknown [facility] Hospital Discharge instructions 11-14-2021 Note Date [...] 08/06/2006 Document Revised: 04/25/2019 Document Reviewed: 07/06/2017 [employer] Patient Education 2020 GLSS. 11/14/2021 11:43:28 Overactive Bladder, Adult Overactive Bladder, [...] fried and sweet foods. General instructions Take qjnr-ele-onbnqlg and prescription medicines only as told by [...] 06/02/2010 Document Revised: 11/27/2019 Document Reviewed: 08/22/2018 [employer] Patient Education 2019 GLSS. 11/14/2021 11:43:25 Benign Prostatic Hyperplasia Benign Prostatic [...] urethra. Follow these instructions at home: Take eqbd-hgj-irhwued and prescription medicines only as told by [...] 08/06/2006 Document Revised: 07/01/2019 Document Reviewed: 09/10/2017 [employer] Patient Education 2020 [employer] Follow Up Care 08/01/2021 12:20:44 With:ELISA HALEY, FATOUMATA Gabriel Address: [facility] [address] , [place] [address]- [phone] When:11/14/2022 Comments:1 year fu [facility] [place] Evaluation + Plan note Note Date & Type Note Facility Evaluation + Plan note Future Appointments Appointment Date:11/17/2022 10:15:00 AM Scheduled Provider:Mir RING MD Location:[facility] Appointment Type:URO Office Visit [facility] Evaluation + Plan note Note Date & Type Note Facility Evaluation + Plan note Future Appointments Appointment Date:03/19/2023 10:15:00 AM Scheduled Provider:Mir RING MD Location:[facility] Appointment Type:URO Office Visit [facility] Evaluation + Plan note Note Date & Type Note Facility Evaluation + Plan note Future Appointments Appointment Date:03/21/2024 09:30:00 AM Scheduled Provider:Mir RING MD Location:[facility] Appointment Type:URO Office Visit [facility] Hospital course Narrative Note Date & Type Note Facility Hospital course Narrative No data available for this section [facility] Progress note Note Date & Type Note Facility Progress note No data available for this section [facility] [email or web address] Summary Purpose Family History No Family History [...] section and content) DATE CREATED AUTHOR 08/10/2018 [facility] DATE CREATED AUTHOR AUTHOR'S ORGANIZ ATION 08/12/2018 [facility] DATE CREATED AUTHOR AUTHOR'S ORGANIZ ATION 08/27/2021 [facility] DATE CREATED AUTHOR AUTHOR'S ORGANIZ ATION 09/20/2021 [facility] DATE CREATED AUTHOR AUTHOR'S ORGANIZ ATION 10/31/2022 [facility] DATE CREATED AUTHOR AUTHOR'S ORGANIZ ATION 03/20/2023 [facility] FOR RECORDS PERTAINING TO PATIENTS WHO ARE [...] BE BASED ON THE PRIMARY CLINICAL RECORDS. [email or web address] provides no warranty or guarantee of the accuracy or completeness of information in this document.
--- OUTSIDE RECORDS SUMMARY | 2023-09-17 08:12 | XMS_ITS | CCD ---
Author Name Unknown Address [address] [place] [address] Organization [facility] Care Team Providers Care Time Buyer Name Role Phone ARCHIE HERNÁNDEZ Unavailable Unavailable [...] Medication Allergies] Propensity to adverse reactions (disorder) [facility] Repository Medications Current Medications Medication Drug Class(es) [...] 0 Start Date: 05/20/21 Status: Ordered sennosides, alf 8.6 mg oral tablet (4 sources) Start: 05-20-2021 take 1 mg by mouth once daily at bedtime senna 8.6 mg Tab mg tab(s), Oral, Once a day (at bedtime), Refills(s) 0 Start Date: 05/20/21 Status: Ordered Start: 08-15-2019 take 2 tablets by [facility] once daily Sennosides Active 2 TAB Oral [...] Test Name Value Interpretation Reference Range Facility [facility] Recordson 03-20 Penitentiary Records [id number]#1.00C D:[address] [facility] Ambulatory Visit Summaryon 0 03-19-2023 Ambulatory Visit [...] year Where: [facility] [address], [place] [address]- [phone] Medications What How Much When Instructions Unchanged [...] prescribing physician (more content not included)... Normal [facility] Patient Educationon 03-19-20 23 Patient Education Urology [...] Follow these instructions at home: ? Take puum-beh-ovjcdub and prescription medicines only as told by [...] the medicine (more content not included)... Normal [facility] Urology Office/Clinic Noteon 03-19-2023 Urology Office/Clinic Note [...] makes it to the restroom. Spoke to prison staff ([facility]), nurse stated patient is always incontinent and rarely ever voids on his own. Follow-up With When Contact Information ELISA HALEY, Mir Bender, URL [facility] [address], [place] [address]- [phone] Additional Instructions: 1 year Patient Education Benign [...] Use:., 03 (more content not included)... Normal [facility] Comment on above: Result Comment: Elec tronically [...] with ELISA HALEY, FATOUMATA Gabriel When: Where: [address] [place], [place] [id number]- Medications What How Much When Instructions Unchanged [...] this condit (more content not included)... Normal [facility] Penitentiary Recordson 11-17 Penitentiary Records [id number]#1.00C D:[address] [facility] Patient Educationon 11-18-19 Patient Education Urology Urinary [...] stimulation). ? For women, using a medical technicians to prevent urine leaks. This is a [...] after experiencing incontinence. General instructions ? Take oyqi-sov-jklqsra and prescription medicines only as (more content not included)... Normal [facility] Urology Office/Clinic Noteon 11-17-2022 Urology Office/Clinic Note Chief Complaint 1yr follow up HPI Staff 1yr to BPH Incontinence w/o sensory awareness & Frequency. *Flomax therapy was DC'd at time of last encounter Pt states he does wear a brief. Denies incontinence/leaking. Did call Penitentiary, Spoke to pt's nurse, stated pt is [...] urge to void when sleeping. Spoke to prison staff ([facility]), nurse stated patient is always incontinent and rarely ever voids on his own. Follow-up With When Contact Information ELISA HALEY, Mir Bender[place] [address] [place] [address]- Additional Instructions: 4 months to starting new [...] losartan 1 (more content not included)... Normal [facility] Comment on above: Result Comment: Elec tronically Signed By: Mir RING MD\.br\Date and Time Signed: 11/17/22 11:36 EDT\.br\Electronically Co-Signed By: Sera Calhoun.nikki\Date and Time Co-Signed: 11/17/22 11:34 EDT URIC ACID SERUMon 10-27-2022 Urate [Mass/Vol] 4.2 mg/dL Normal 3.5-7.2 [facility] Comment on above: Performed By: #### U VICTOR HUGO #### [facility] [address] [address] [address] Neymar Guy URIC ACID SERUMon 07-03-2022 Urate [Mass/Vol] 4.3 mg/dL Normal 3.5-7.2 [facility] Comment on above: Performed By: #### U VICTOR HUGO #### [facility] [id number] Neymar Guy Addendum Reporton 08-26-[address] [facility] Department of Pathology [address] [place] [address] Name: BRAD HUTCHISON : 1945 Financial [id number] Number: Gender: Male Location: [facility] Admit 76 years Attending MIR RING Age: Provider: Ordering MIR RING Provider: Consulting: Surgical Pathology Report ACCESSION: COLLECTED DATE/TIME: RECEIVED DATE/TIME: PATHOLOGIST: [id number] 06/30/2021 16:30 EST 07/01/2021 12:02 EST FERNANDO HALEY, JEFF GLASS Surgical Path Addendum Report A PIN4 immunostain was used in evaluation of this specimen and is negative. 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 - NEGATIVE FOR MALIGNANCY. JEFF KING PATHOLOGIST (Electronic Signature) Date Verified 07/07/2021 CL Clinical Data PRE-OP DIAGNOSIS: Not specified POST-OP DIAGNOSIS: Enlarged prostate with lower urinary tract symptoms PROCEDURES: Cystoscopy, TURP SPECIMEN: Prostate tissue / Ambulatory Surgery ____ Print Date08/26/2021 15:01 EST Number: Time: [facility] Department of Pathology [address] [place] [id number] Name: BRAD HUTCHISON : 1945 Financial [id number] Number: Gender: Male Location: [facility] Admit 76 years Attending MIR RING Age: Provider: Ordering MIR RING Provider: Consulting: Surgical Pathology Report ACCESSION: COLLECTED DATE/TIME: RECEIVED DATE/TIME: PATHOLOGIST: [id number] 06/30/2021 16:30 EST 07/01/2021 12:02 EST FERNANDO HALEY, JEFF ORTA Gross Description Labeled prostate tissue. Received in formalin are fragments of firm du soft tissue measuring 2.0 x 1.0 x 0.6 cm in aggregate. The specimen is entirely submitted in cassette A1- A2. HW/elliot 07/01/2021 Tissue pathology report for: [facility], [address] [place] [address]; PATHOLOGY SERVICES PROVIDED BY [facility] (CLIA #[id number]) in cooperation with [facility] at [address] [place] [address] (CLIA #[id number]) Codes CPT CODE: 15351 [id number] ____ Print Date08/26/2021 15:01 EST Number: Time: Normal [facility] Comment on above: Performed By: #### 9 [id number], [id number] #### [facility] Services [address] [place] [address] Housing Assistant: Alexander Yen MD COVID-19 [facility] 08-02-2021 SARS-CoV-2 (COVID-19) RNA PERRY+probe Ql (Unsp spec) Negative Normal Negative [facility] Comment on above: Order Comment: Healt hcare Worker?: N Result Comment: Testing for SARS-CoV-2 by RT-PCR This test was developed and its performance characteristics determined by [employer] and validated at the [facility]. This test has not been FDA [...] is terminated or revoked sooner. PERFORMED BY: [place] [address] PATHOLOGIST [employer] SERVICE TECHNICIAN GERI MANZANO M.D. Performed By: #### A MM, BMP, HS TROP, CBC #### [address] ECG 12 lead ECGon 08-02-2021 ECG 12 lead ECG [facility] [place] [address] [place] [address] Electrocardiograph Report Signed Patient: Brad Hutchison MR#: [id number] : 1945 Acct:[id number] Age/Sex: 76 / M ADM Date: 08/01/21 Loc: Room: [address] [place] [address] Type: ADM INOo Attending Dr: Lynn Rivas [...] MUS Signed By Ivan Baldwin MD [address] [facility] echo transthoracicon [facility] echo transthoracic [facility] [address] Echocardiogram Signed Patient: Brad Hutchison MR#: [id number] : 1945 Acct:[id number] Age/Sex: 76 / M ADM Date: 08/01/21 Loc: Room: [address] [place] [address] Type: ADM INOo Attending Dr: Lynn Rivas MD Ordering Provider: Lynn Rivas MD Date of Service: 08/01/21 [facility] echo transthoracic: syncope Copies to: Rosanne Chaparro MD, [facility] Lynn Rivas MD Height: 69.5 in Weight: [...] 08/02/21 1201 Dictated By: Rosanne Chaparro MD, [facility] 08/02/21 0833 Signed By: 08/02/21 1201 Normal [facility] Ammoniaon 08-01-2021 Ammonia (P) [Moles/Vol] 12 umol/L Normal 11-35 [facility] Comment on above: Result Comment: PERF ORMED BY: [place] [address] PATHOLOGIST [employer] SERVICE TECHNICIAN GERI MANZANO M.D. Performed By: #### A MM, BMP, HS TROP, CBC #### [facility] [address] Basic Metabolic Panelon 07-20 Calcium [Mass/Vol] 8.3 mg/dL Normal 8.2-10.2 [facility] Comment on above: Performed By: #### A MM, BMP, HS TROP, CBC #### [facility] [address] Chloride [Moles/Vol] 101 mmol/L Normal 95-114 [facility] Comment on above: Performed By: #### A MM, BMP, HS TROP, CBC #### [facility] [address] CO2 [Moles/Vol] 21.4 mmol/L Low 22.0-30.0 [facility] Comment on above: Performed By: #### A MM, BMP, HS TROP, CBC #### [facility] [address] [place] [address] [place] Creatinine [Mass/Vol] 2.15 mg/dL High 0.64-1.27 [facility] Comment on above: Performed By: #### A MM, BMP, HS TROP, CBC #### [facility] [address] [place] [address] [place] Creatinine Clr Calc Pharmacy 31.12 Normal [facility] Comment on above: Result Comment: PERF ORMED BY: [place] [address] PATHOLOGIST [employer] SERVICE TECHNICIAN GERI MANZANO M.D. Performed By: #### A MM, BMP, HS TROP, CBC #### [facility] [address] Estimated GFR ( Ruthy 37 Normal [facility] Comment on above: Result Comment: GFR estimated reference range: According to KDOQI guidelines, <60 ml/min/1.73m2 is sufficient to diagnose a patient with chronic kidney disease. Performed By: #### A MM, BMP, HS TROP, CBC #### [facility] [address] [place] [address] [place] Estimated GFR (Non- Am 30 Normal [facility] Comment on above: Performed By: #### A MM, BMP, HS TROP, CBC #### [facility] [address] Glucose [Mass/Vol] 126 mg/dL High 70-100 [facility] Comment on above: Result Comment: [place] om Glucose Reference Range is dependent on time and content of last meal. Glucose of more than 200 mg/dL in a nonstressed, ambulatory subject supports the diagnosis of Diabetes Mellitus. ADA recommended reference range Performed By: #### A MM, BMP, HS TROP, CBC #### [facility] [address] Potassium [Moles/Vol] 3.9 mmol/L Normal 3.5-5.1 [facility] Comment on above: Performed By: #### A MM, BMP, HS TROP, CBC #### [facility] [address] Sodium [Moles/Vol] 133 mmol/L Low 136-146 [facility] Comment on above: Performed By: #### A MM, BMP, HS TROP, CBC #### [facility] [address] [place] [address] Urea nitrogen [Mass/Vol] 34 mg/dL High 9-23 [facility] Comment on above: Performed By: #### A MM, BMP, HS TROP, CBC #### [facility] [address] [place] [address] COVID-19 Antigenon 1 COVID-19 Antigen Healthcare Worker?: [...] its performance Sarah Disclaimer characteristic determined by [employer] and Sarah Disclaimer validated at [facility]. This Sarah Disclaimer test has not [...] is terminated or revoked sooner. PERFORMED BY: [place] [address] PATHOLOGIST [employer] SERVICE TECHNICIAN GERI MANZANO M.D. [facility] Comment on above: Performed By: #### S TUYET, COVID-19 SARAH #### [address] cervical spine wo conon 1 10-02-2020 CT cervical spine wo con [facility] [place] [address] CT Scan Report Signed Patient: Brad Hutchison MR#: [id number] : 1945 Acct:[id number] Age/Sex: 76 / M ADM Date: 08/01/21 Loc: ER Room: Type: [facility] ER Attending Dr: Ordering Provider: Porfirio Pryor [...] Champ Rae M.D.08/01/2021 3:59 PM Dictation Location: [address] [place] [address] Transcribed By: [facility] 08/01/211558 Dictated By: Champ Rae DO 08/01/211550 Signed By: 08/01/21 155 Normal [facility] CT head/brain wo conon 08-01 CT head/brain wo con [facility] [place] [address] CT Scan Report Signed Patient: Brad Hutchison MR#: [id number] : 1945 Acct:[id number] Age/Sex: 76 / M ADM Date: 08/01/21 Loc: ER Room: Type: [facility] ER Attending Dr: Ordering Provider: Porfirio Pryor [...] Champ Rae M.D.08/01/2021 3:51 PM Dictation Location: [place] [address] Transcribed By: [facility] 08/01/21 155 Dictated By: Champ Rae DO 08/01/21 1547 Signed By: 08/01/21 155 Normal [facility] Complete Blood Count Auto Di ffon 08-01-2021 Basophils (Bld) [#/Vol] 0.1 10*3/uL Normal 0.0-0.2 [facility] Comment on above: Result Comment: PERF ORMED BY: [place] [address] PATHOLOGIST [employer] SERVICE TECHNICIAN GERI MANZANO M.D. Performed By: #### A MM, BMP, HS TROP, CBC #### [facility] [address] Basophils/100 WBC (Bld) 1.3 % Normal . [facility] Comment on above: Performed By: #### A MM, BMP, HS TROP, CBC #### [facility] [address] [place] [address] [place] Eosinophils (Bld) [#/Vol] 0.3 10*3/uL Normal 0.0-0.45 [facility] Comment on above: Performed By: #### A MM, BMP, HS TROP, CBC #### [facility] [address] [place] [address] [place] Eosinophils/100 WBC (Bld) 3.4 % Normal . [facility] Comment on above: Performed By: #### A MM, BMP, HS TROP, CBC #### [facility] [address] [place] [address] [place] Erythrocyte distribution width (RBC) [Ratio] 13.1 % Normal 12.0-14.8 [facility] Comment on above: Performed By: #### A MM, BMP, HS TROP, CBC #### [address] Hematocrit (Bld) [Volume fraction] 35.7 % Low 38.8-50.0 [facility] Comment on above: Performed By: #### A MM, BMP, HS TROP, CBC #### [address] Hemoglobin (Bld) [Mass/Vol] 12.0 g/dL Low 13.0-17.0 [facility] Comment on above: Performed By: #### A MM, BMP, HS TROP, CBC #### [address] Lymphocytes (Bld) [#/Vol] 1.8 10*3/uL Normal 1.00-4.8 [facility] Comment on above: Performed By: #### A MM, BMP, HS TROP, CBC #### [address] Lymphocytes/100 WBC (Bld) 22.9 % Normal . [facility] Comment on above: Performed By: #### A MM, BMP, HS TROP, CBC #### [address] MCH (RBC) [Entitic mass] 33.9 pg Normal 27.5-35.2 [facility] Comment on above: Performed By: #### A MM, BMP, HS TROP, CBC #### [address] MCV (RBC) [Entitic vol] 100.5 fL Normal 83.5-101 [facility] Comment on above: Performed By: #### A MM, BMP, HS TROP, CBC #### [address] Mean Corpuscular HGB Conc 33.7 g/dL Normal 32.5-35.6 [facility] Comment on above: Performed By: #### A MM, BMP, HS TROP, CBC #### [address] [place] [address] [place] Monocytes (Bld) [#/Vol] 0.6 10*3/uL Normal 0.0-0.8 [facility] Comment on above: Performed By: #### A MM, BMP, HS TROP, CBC #### [facility] [address] [place] [address] [place] Monocytes/100 WBC (Bld) 7.5 % Normal . [facility] Comment on above: Performed By: #### A MM, BMP, HS TROP, CBC #### [facility] [address] [place] [address] [place] Neutrophils (Bld) [#/Vol] 5.0 10*3/uL Normal 1.8-7.7 [facility] Comment on above: Performed By: #### A MM, BMP, HS TROP, CBC #### [facility] [address] [place] [address] [place] Neutrophils/100 WBC (Bld) 64.9 % Normal . [facility] Comment on above: Performed By: #### A MM, BMP, HS TROP, CBC #### [facility] [address] [place] [address] [place] Nucleated RBC/100 WBC (Bld) [Ratio] 0.1 % Normal 0-0.5 [facility] Comment on above: Performed By: #### A MM, BMP, HS TROP, CBC #### [facility] [address] [place] [address] [place] Platelet mean volume (Bld) [Entitic vol] 9.2 fL Normal 6.6-10.1 [facility] Comment on above: Performed By: #### A MM, BMP, HS TROP, CBC #### [facility] [address] [place] [address] [place] Platelets (Bld) [#/Vol] 145 10*3/uL Low 150-450 [facility] Comment on above: Performed By: #### A MM, BMP, HS TROP, CBC #### [facility] [address] [place] [address] [place] RBC (Bld) [#/Vol] 3.55 10*6/uL Low 3.90-5.60 [facility] Comment on above: Performed By: #### A MM, BMP, HS TROP, CBC #### [facility] [address] [place] [address] WBC (Bld) [#/Vol] 7.6 10*3/uL Normal 4.5-11.0 [facility] Comment on above: Performed By: #### A MM, BMP, HS TROP, CBC #### [facility] [address] [place] [address] ECG 12 lead ECGon 08-01-2021 ECG 12 lead ECG [facility] [place] [address] Electrocardiograph Report Signed Patient: Brad Hutchison MR#: [id number] : 1945 Acct:[id number] Age/Sex: 76 / M ADM Date: 08/01/21 Loc: Room: [address] [place] [address] Type: ADM IN Attending Dr: Lynn Rivas [...] Prolonged QT Confirmed by Porfirio Pryor DO ([id number]) on 08/01/2021 8:58:49 PM Referred By: Electronically Signed By:Porfirio Pryor DO Transcribed By: MUS Signed By Porfirio Pryor DO 2057 Normal [facility] ECG 12 lead ECG [facility] [place] [address] Electrocardiograph Report Signed Patient: Brad Hutchison MR#: [id number] : 1945 Acct:[id number] Age/Sex: 76 / M ADM Date: 08/01/21 Loc: Room: [address] [place] [address] Type: ADM IN Attending Dr: Lynn Rivas [...] baseline artifact Confirmed by Porfirio Pryor DO ([id number]) on 08/01/2021 8:58:16 PM Referred By: Electronically Signed By:Porfirio Pryor DO Transcribed By: MUS Signed By Porfirio Pryor DO 2057 [facility] Ethyl Alcohol Profileon 07-20 Ethanol [Mass/Vol] 38 mg/dL Normal [facility] Comment on above: Performed By: #### E BRAYDEN #### [facility] [address] [place] [address] Percent Ethanol 0.038 % [facility] Comment on above: Result Comment: PERF ORMED BY: [place] [address] PATHOLOGIST [employer] SERVICE TECHNICIAN GERI MANZANO M.D. Performed By: #### E BRAYDEN #### [facility] [address] [place] [address] Sarah Ag Negativeon 08-01-20 Sarah Ag Negative Negative Normal Negative [facility] Comment on above: Result Comment: This is a duplicate Sarah SARS Antigen (KINDRA) result to be used for statistical tracking purpose only. PERFORMED BY: [place] [address] PATHOLOGIST [employer] SERVICE TECHNICIAN GERI MANZANO M.D. Performed By: #### S OFBJORN COVID-19 SARAH #### [facility] [address] [place] [address] Troponin I High Sensitivityo n 08-01-2021 Troponin I High Sensitivity 12 pg/mL Normal 0-20 [facility] Comment on above: Result Comment: PERF ORMED BY: [place] [address] PATHOLOGIST [employer] SERVICE TECHNICIAN GERI MANZANO M.D. Performed By: #### A MM, BMP, HS TROP, CBC #### [address] Troponin I High Sensitivity 12 pg/mL Normal 0-20 [facility] Comment on above: Result Comment: PERF ORMED BY: [place] [address] PATHOLOGIST [employer] SERVICE TECHNICIAN GERI MANZANO M.D. Performed By: #### A MM, BMP, HS TROP, CBC #### [address] XR chest 1V portableon 08-01 XR chest 1V portable [facility] [place] [address] [place] [address] XRay Report Signed Patient: Brad Hutchison MR#: [id number] : 1945 Acct:[id number] Age/Sex: 76 / M ADM Date: 08/01/21 Loc: ER Room: Type: [facility] ER Attending Dr: Ordering Provider: Porfirio Pryor [...] Champ Rae M.D.08/01/2021 3:35 PM Dictation Location: [place] [address] Transcribed By: [facility] 08/01/21 153 Dictated By: Champ Rae DO 08/01/21 153 Signed By: 08/01/21 153 [facility] SURGICAL PATH REPORTon 07-[address] [facility] Department of Pathology [address] [place] [address] Name: BRAD HUTCHISON : 1945 [facility] [id number] Number: Gender: Male Location: [facility] Admit 76 years Attending MIR RING Age: Provider: Ordering MIR RING Provider: Consulting: Surgical Pathology Report ACCESSION: COLLECTED DATE/TIME: RECEIVED DATE/TIME: PATHOLOGIST: [id number] 06/30/2021 16:30 EST 07/01/2021 12:02 EST FERNANDO HALEY, JEFF ORTA Final Diagnosis Report for THE KILLDEER, [place] PROSTATE TISSUE, TURP: - BENIGN PROSTATIC [...] GENEVA/elliot 07/01/2021 Tissue pathology report for: [facility], [address] [place] [address]; ____ Print Date/ 07/07/2021 11:14 EST Number: Time: [facility] Department of Pathology [address] [place] [id number] Name: BRAD HUTCHISON : 1945 Financial [id number] Number: Gender: Male Location: [facility] Admit 76 years Attending MIR RING Age: Provider: Ordering MIR RING Provider: Consulting: Surgical Pathology Report ACCESSION: COLLECTED DATE/TIME: RECEIVED DATE/TIME: PATHOLOGIST: [id number] 06/30/2021 16:30 EST 07/01/2021 12:02 EST FERNANDO HALEY, JEFF ORTA Gross Description PATHOLOGY SERVICES PROVIDED BY [employer], [facility] (CLIA #[id number]) in cooperation with [facility] at [address] [place] [address] (CLIA #[id number]) Codes CPT CODE: 52707 [id number] ____ Print Date/ 07/07/2021 11:14 EST Number: Time: Normal [facility] Comment on above: Performed By: #### 9 [id number] #### [facility] Services [address] [place] [address] Housing Assistant: Alexander Yen MD Creatinine 07-29-2018 Creatinine mass conc 1.36 mg/dL High 0.50-1.30 [facility] Comment on above: Performed By: #### 1 [id number] ####[facility] [address] [place] [address] GFR/1.73 sq M.predicted MDRD vol rate/area 52 mL/min/{1.73_m2} Normal [facility] Comment on above: Result Comment: Inte rpretation for Chronic Kidney Disease:Stages 1&2 >60 Healthy or potential kidney damage.Mild decrease of GFR.Stage 3 30-59 Moderate decrease of GFR.Stage 4 15-29 Severe decrease of GFR.Stage 5 <15 Kidney failure or on dialysis. Performed By: #### 1 [id number] ####[facility] [address] [place] [address] Electrolyte Panelon 07-29-20 18 Anion gap 3 molar conc 11 mmol/L Normal 10-20 [facility] Comment on above: Performed By: #### 1 106215 ####[facility] [address] [place] [address] Chloride molar conc 104 mmol/L Normal 98-107 [facility] Comment on above: Performed By: #### 1 696474 ####[facility] [address] [facility] [place] [id number] HCO3 molar conc (Bld) 30 mmol/L Normal 21-32 [facility] Comment on above: Performed By: #### [id number] ####[facility] [id number] [place] [address] Potassium molar conc 3.6 mmol/L Normal 3.5-5.1 [facility] Comment on above: Performed By: #### [id number] ####[facility] [id number] [place] [address] Sodium molar conc 141 mmol/L Normal 136-145 [facility] Comment on above: Performed By: #### [id number] ####[facility] [id number] [place] [address] Urea Nitrogenon 07-29-2018 Urea nitrogen mass conc 20 mg/dL Normal 6-23 [facility] Comment on above: Performed By: #### [id number] ####[facility] [id number] [place] [address] Vital Signs Date Time Vital Sign Value Performing Clinician Javier [email or web address] 03-19-2023 10:23-0400 Blood Pressure Location Mir ELISA [facility] 03-19-2023 10:23-0400 Diastolic blood pressure 70 mm[Hg] Mir RING [facility] 03-19-2023 10:23-0400 Heart rate 68 /min Mir RING [facility] 03-19-2023 10:23-0400 Respiratory rate 16 /min Mir RING [facility] 03-19-2023 10:23-0400 Systolic blood pressure 106 mm[Hg] Mir RING [facility] 11-17-2022 10:30-0400 Blood Pressure Location Mir RING [facility] 11-17-2022 10:30-0400 Diastolic blood pressure 87 mm[Hg] Mir RING [facility] 11-17-2022 10:30-0400 Heart rate 68 /min Mir RING [facility] 11-17-2022 10:30-0400 Respiratory rate 16 /min Mir RING [facility] 11-17-2022 10:30-0400 Systolic blood pressure 128 mm[Hg] Mir RING [facility] 11-14-2021 10:55-0400 Blood Pressure Location Mir RING [facility] 11-14-2021 10:55-0400 Diastolic blood pressure 80 mm[Hg] Mir RING [facility] [place] 11-14-2021 10:55-0400 Heart rate 68 /min Mir RING [facility] [place] 11-14-2021 10:55-0400 Respiratory rate 16 /min [facility] 11-14-2021 10:55-0400 Systolic blood pressure 138 mm[Hg] [facility] Encounters Encounter Date Encounter Type Care Provider Facility Start: 03-21-2024 ambulatory Mir RING Facili ty:[facility] [place] Start: 03-19-2023 End: 03-20-2023 ambulatory Mir RING Facility:[facility] [place] Start: 03-19-2023 End: 03-19-2023 Patient encounter procedure [facility] [place] Start: 11-17-2022 End: 11-18-2022 ambulatory Mir RING Facility:[facility] [place] Start: 11-17-2022 End: 11-17-2022 Patient encounter [facility] Start: 10-27-2022 End: 10-27-[address] DOCTOR JENKINS Facility:[facility] Start: 07-03-2022 End: 07-03-2022 ambulatory JJ DACOSTA Facility:[facility] Start: 11-14-2021 End: 11-14-2021 Patient encounter procedure [facility] Start: 08-06-2018 Patient encounter procedure ARCHIE [...] Provider Fa crescencio 05-30-2022 SARS-CoV-2 (COVID-19 ) [id number] Mir RING [facility] 02-15-2022 SARS-CoV-2 mRNA (mqlzonyupvx-izxw-qrtfoy e) vaccine Mir RING [facility] 08-01-2021 tetanus toxoid, redu dontae diphtheria toxoid, and acellular pertussis vaccine, adsorbed Mir RING [facility] 07-01-2021 SARS-CoV-2 (COVID-19 ) mRNA BNT-162b2 vax Mir RING [facility] 06-02-2021 influenza virus vacc ine, unspecified formulation Mir RING [facility] 04-23-2021 pneumococcal polysaccharide vaccine, 23 valent Mir RIGN [facility] 04-20-2021 influenza virus vacc ine, unspecified formulation Mir RING [facility] 09-22-2020 SARS-CoV-2 (COVID-19 ) mRNA BNT-162b2 vax Mir RING [facility] Comment on above: Result Comment: 2022: [id number] 09-01-2020 SARS-CoV-2 (COVID-19 ) mRNA BNT-162b2 vax Mir [employer] [facility] Comment on above: Result Comment: 2022: [id number] 06-01-2020 influenza virus vacc ine, unspecified formulation yoone [facility] 06-17-2019 influenza virus vacc ine, unspecified formulation yoone [facility] 06-17-2018 influenza virus vacc ine, unspecified formulation yoone [facility] 06-11-2017 influenza virus vacc ine, unspecified formulation yoone [facility] 07-10-2014 influenza virus vacc ine, unspecified formulation yoone [facility] Payers Date Payer Category Payer Medicaid [id number] 1957 Medicare [id number] 1945 Unknown [id number] 2.16. [id number] 1945 Unknown [id number] 2.16.8 [id number] 1945 Unknown [id number] 2.16.8 [id number] 1945 Unknown [id number] 2.16.84 [id number] 1945 Unknown [id number] 2.16.84 [id number] 1945 Unknown [id number] 2.16.8 [id number] 1945 Unknown [id number] 2.16.8 [id number] 1945 Unknown [id number] 2.16.8 [id number] Medicare [id number] Self-pay Self Pay [id number] Social History Date Type Detail Facility Tobacco smoking stat [facility] Unknown if ever smoked [facility] Start: 1945 Sex Assigned At Male [facility] Start: 05-20-2021 End: 11-17-2022 Tobacco smoking status Never smoked tobacco (finding) [facility] Sex Assigned At Male [facility] Tobacco smoking status Never [facility] Goals Date Patient Goal Desired Activity /State Functional Status Date Assessment Result Facility 03-19-2023 Functional Status N/A [facility] 11-17-2022 Functional Status N/A [facility] Hospital Discharge instructions 03-19-2023 Note Date & [...] urethra. Follow these instructions at home: Take jnjh-zix-mcnhams and prescription medicines only as told by [...] provider. Document Revised: 02/22/2022 Document Reviewed: 02/22/2022 [employer] Patient Education 2022 [employer]. Follow Up Care 11/17/2022 11:43:25 With:ELISA HALEY, Mir Bender, URL Address: [facility] [address] , [place] [address]- [phone] When: Unknown Comments:1 year [facility] [place] Hospital Discharge instructions 11-17-2022 [...] nerve stimulation). For women, using a medical technicians to prevent urine leaks. This is a [...] right after experiencing incontinence. General instructions Take haom-whu-woqtmpc and prescription medicines only as told by [...] 09/13/2005 Document Revised: 08/16/2018 Document Reviewed: 11/15/2017 [employer] Patient Education 2020 [employer]. Follow Up Care 11/14/2021 11:50:03 With:ELISA HALEY, Mir Bender, URL Address: [address] [place] [address]- When: Unknown [facility] Hospital Discharge instructions 11-14-2021 Note Date & [...] 08/06/2006 Document Revised: 04/25/2019 Document Reviewed: 07/06/2017 [employer] Patient Education 2020 [employer]. 11/14/2021 11:43:28 Overactive Bladder, Adult Overactive Bladder, [...] fried and sweet foods. General instructions Take rlax-bvy-rdswrdf and prescription medicines only as told by [...] 06/02/2010 Document Revised: 11/27/2019 Document Reviewed: 08/22/2018 [employer] Patient Education 2019 [employer]. 11/14/2021 11:43:25 Benign Prostatic Hyperplasia Benign Prostatic [...] urethra. Follow these instructions at home: Take iuya-crp-mkihzqh and prescription medicines only as told by [...] 08/06/2006 Document Revised: 07/01/2019 Document Reviewed: 09/10/2017 [employer] Patient Education 2020 [employer] Follow Up Care 08/01/2021 12:20:44 With:ELISA HALEY, FATOUMATA Gabriel Address: [facility] [address] , [place] [address]- [phone] When:11/14/2022 Comments:1 year fu [facility] [place] Evaluation + Plan note Note Date & Type Note Facility Evaluation + Plan note Future Appointments Appointment Date:11/17/2022 10:15:00 AM Scheduled Provider:Mir RING MD Location:[facility] Appointment Type:URO Office Visit [facility] Evaluation + Plan note Note Date & Type Note Facility Evaluation + Plan note Future Appointments Appointment Date:03/19/2023 10:15:00 AM Scheduled Provider:Mir RING MD Location:[facility] Appointment Type:URO Office Visit [facility] Evaluation + Plan note Note Date & Type Note Facility Evaluation + Plan note Future Appointments Appointment Date:03/21/2024 09:30:00 AM Scheduled Provider:Mir RING MD Location:[facility] Appointment Type:URO Office Visit [facility] Hospital course Narrative Note Date & Type Note Facility Hospital course Narrative No data available for this section [facility] [place] note Note Date & Type Note Facility [place] note No data available for this section [facility] [place] Summary Purpose Family History No Family History [...] section and content) DATE CREATED AUTHOR 08/10/2018 [facility] DATE CREATED AUTHOR AUTHOR'S ORGANIZ ATION 08/12/2018 [facility] Healthcare DATE CREATED AUTHOR AUTHOR'S ORGANIZ ATION 08/27/2021 [facility] DATE CREATED AUTHOR AUTHOR'S ORGANIZ ATION 09/20/2021 [facility] DATE CREATED AUTHOR AUTHOR'S ORGANIZ ATION 10/31/2022 [facility] DATE CREATED AUTHOR AUTHOR'S ORGANIZ ATION 03/20/2023 [facility] FOR RECORDS PERTAINING TO PATIENTS WHO [...] BE BASED ON THE PRIMARY CLINICAL RECORDS. [employer] provides no warranty or guarantee of the accuracy or completeness of information in this document.
[2023-09-17 08:44] LABS: Bilirubin Urine NEGATIVE (NEGATIVE); Blood Urine NEGATIVE (NEGATIVE); Clarity Urine CLOUDY (CLEAR); Color Urine LT. YELLOW (YELLOW); Glucose Urine UA NEGATIVE (NEGATIVE); Ketones Urine NEGATIVE (NEGATIVE); Leukocyte Esterase Urine LARGE (NEGATIVE); Nitrite Urine NEGATIVE (NEGATIVE); Protein Urine NEGATIVE (NEG/TRACE); Urobilinogen Urine 0.2 EU/dL (0.2-1.0)
[2023-09-17 08:52] LABS: Urine Microscopic Indicated YES
[2023-09-17 08:57] LABS: Bacteria Urine SMALL #/HPF (NONE SEEN); Cast Seen? NONE SEEN #/LPF (NONE SEEN); Crystals Seen? None Seen #/HPF (None Seen); Mucus Urine NONE SEEN (NONE SEEN); RBC Urine NONE SEEN #/HPF (0-2); Squamous Epithelial Cell Urine NONE SEEN #/LPF (NONE/RARE); Urine Culture Indicated YES; WBC Urine >100 #/HPF (NONE SEEN)
== END 2023-09-16 20:41 | disposition home or self-care (01) ==
LOC: LAB 20:40
PROVIDERS: PCP Family Medicine; Visit Provider Nurse Practitioner Family
DX: R41.82 Altered mental status, unspecified (principal); R41.0 Disorientation, unspecified
CPT/HCPCS: 81001; 87086; 87150; 87186

== ENCOUNTER 2023-10-10 01:51 | Outpatient (REF) | payer MEDICARE, MEDICAID, SELFPAY ==
--- OUTSIDE RECORDS SUMMARY | 2023-10-10 01:55 | XMS_ITS | CCD ---
Author Name Unknown Address [address] [place] [address] Organization [facility] Care Team Providers Care Supervisor [place] Name Role Phone ARCHIE HERNÁNDEZ Unavailable Unavailable [...] Allergies] Propensity to adverse reactions (disorder) [facility] Repository Medications Current Medications Medication Drug [...] 0 Start Date: 05/20/21 Status: Ordered sennosides, prison 8.6 mg oral tablet (4 sources) Start: 05-20-2021 take 1 mg by mouth once daily at bedtime senna 8.6 mg Tab mg tab(s), Oral, Once a day (at bedtime), Refills(s) 0 Start Date: 05/20/21 Status: Ordered Start: 08-15-2019 take 2 tablets by [facility] once daily Sennosides Active 2 TAB [...] Test Name Value Interpretation Reference Range Facility Long Term Recordson 03-20 Long Term Records [id number]#1.00C D:127 Normal [facility] Ambulatory Visit Summaryon 0 03-19-2023 Ambulatory [...] year Where: [facility] [address], [place] [address] [id number] Medications What How Much When Instructions Unchanged [...] physician (more content not included)... Normal [facility] Patient Educationon 03-19-20 23 Patient Education [...] Follow these instructions at home: ? Take zdzu-usd-lsnadui and prescription medicines only as told by [...] medicine (more content not included)... Normal [facility] Urology Office/Clinic Noteon 03-19-2023 Urology Office/Clinic [...] makes it to the restroom. Spoke to longterm staff ([facility]), nurse stated patient is always incontinent and rarely ever voids on his own. Follow-up With When Contact Information ELISA HALEY, Mir Bender, URL [facility] [address], [place] [address] [phone] Additional Instructions: 1 year Patient Education Benign [...] 03 (more content not included)... Normal [facility] Comment on above: Result Comment: Elec [...] with ELISA HALEY, FATOUMATA Gabriel When: Where: [address] [place], [place] [id number]- Medications What How Much When Instructions Unchanged [...] condit (more content not included)... Normal [facility] Long Term Recordson 11-17 Long Term Records [id number] [id number]#1.00C D:127 Normal [facility] Patient Educationon 11-18-19 Patient Education Urology [...] stimulation). ? For women, using a medical or surgical instrument maker to prevent urine leaks. This is a [...] after experiencing incontinence. General instructions ? Take okzo-tgv-gozrwke and prescription medicines only as (more content not included)... Normal [facility] Urology Office/Clinic Noteon 11-17-2022 Urology Office/Clinic Note Chief Complaint 1yr follow up HPI Staff 1yr to BPH Incontinence w/o sensory awareness & Frequency. *Flomax therapy was DC'd at time of last encounter Pt states he does wear a brief. Denies incontinence/leaking. Did call Long Term, Spoke to pt's nurse, stated pt is [...] urge to void when sleeping. Spoke to longterm staff ([facility]), nurse stated patient is always incontinent and rarely ever voids on his own. Follow-up With When Contact Information ELISA HALEY, Mir Bender, [place] [address] [place] [phone]- Additional Instructions: 4 months to starting new [...] 1 (more content not included)... Normal [facility] Comment on above: Result Comment: Elec tronically Signed By: Mir RING MD\.br\Date and Time Signed: 11/17/22 11:36 EDT\.br\Electronically Co-Signed By: Sera Calhoun.nikki\Date and Time Co-Signed: 11/17/22 11:34 EDT URIC ACID SERUMon 10-27-2022 Urate [Mass/Vol] 4.2 mg/dL Normal 3.5-7.2 [facility] Comment on above: Performed By: #### U VICTOR HUGO #### [facility] [address] [address] [address] Neymar Guy URIC ACID SERUMon 07-03-2022 Urate [Mass/Vol] 4.3 mg/dL Normal 3.5-7.2 [facility] Comment on above: Performed By: #### U VICTOR HUGO #### [facility] [id number] Neymar Guy Addendum Reporton 08-26-2021 Addendum Report [facility] Department of Pathology [address] [place] [address] Name: BRAD HUTCHISON : 1945 Financial [id number] Number: Gender: Male Location: [facility] Admit 76 years Attending MIR RING Age: Provider: Ordering MIR RING Provider: Consulting: Surgical Pathology Report ACCESSION: COLLECTED DATE/TIME: RECEIVED DATE/TIME: PATHOLOGIST: [id number] 06/30/2021 16:30 EST 07/01/2021 12:02 EST FERNANDO HALEY, JEFF GLASS Surgical Path Addendum Report A PIN4 immunostain was used in evaluation of this specimen and is negative. 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 - NEGATIVE FOR MALIGNANCY. JEFF KING PATHOLOGIST (Electronic Signature) Date Verified 07/07/2021 CL Clinical Data PRE-OP DIAGNOSIS: Not specified POST-OP DIAGNOSIS: Enlarged prostate with lower urinary tract symptoms PROCEDURES: Cystoscopy, TURP SPECIMEN: Prostate tissue / Ambulatory Surgery ____ Print Date08/26/2021 15:01 EST Number: Time: [facility] Department of Pathology [address] [place] [address] Name: BRAD HUTCHISON : 1945 Financial [id number] Number: Gender: Male Location: [facility] Admit 76 years Attending MIR RING Age: Provider: Ordering MIR RING Provider: Consulting: Surgical Pathology Report ACCESSION: COLLECTED DATE/TIME: RECEIVED DATE/TIME: PATHOLOGIST: [id number] 06/30/2021 16:30 EST 07/01/2021 12:02 EST FERNANDO HALEY, JEFF ORTA Gross Description Labeled prostate tissue. Received in formalin are fragments of firm du soft tissue measuring 2.0 x 1.0 x 0.6 cm in aggregate. The specimen is entirely submitted in cassette A1- A2. HW/elliot 07/01/2021 Tissue pathology report for: [facility], [address] [place] [address]; PATHOLOGY SERVICES PROVIDED BY [facility] (CLIA #[id number]) in cooperation with [facility] at [address] [place] [address] (CLIA #[id number]) Codes CPT CODE: 70856 [id number] ____ Print Date08/26/2021 15:01 EST Number: Time: Normal [facility] Comment on above: Performed By: #### 9 [id number], [id number] #### [facility] Services [address] [place] [address] Executive Vice President And Chief Operating Officer: Alexander Yen MD COVID-19 [facility] 08-02-2021 SARS-CoV-2 (COVID-19) RNA PERRY+probe Ql (Unsp spec) Negative Normal Negative [facility] Comment on above: Order Comment: Healt hcare Worker?: N Result Comment: Testing for SARS-CoV-2 by RT-PCR This test was developed and its performance characteristics determined by [employer] and validated at the [facility]. This test has not been FDA cleared [...] is terminated or revoked sooner. PERFORMED BY: [place] [address] PATHOLOGIST JUNIOR PHP DEVELOPER GERI MANZANO M.D. Performed By: #### A MM, BMP, HS TROP, CBC #### [address] ECG 12 lead ECGon 08-02-2021 ECG 12 lead ECG [facility] [place] [address] [place] [address] Electrocardiograph Report Signed Patient: Brad Hutchison MR#: [id number] : 1945 Acct:[id number] Age/Sex: 76 / M ADM Date: 08/01/21 Loc: Room: [address] [place] [address] Type: ADM INOo Attending Dr: Lynn Rivas [...] MUS Signed By Ivan Baldwin MD [address] [facility] echo transthoracicon [facility] echo transthoracic [facility] [place] [address] Echocardiogram Signed Patient: Brad Hutchison MR#: [id number] : 1945 Acct:[id number] Age/Sex: 76 / M ADM Date: 08/01/21 Loc: Room: [address] [place] [address] Type: ADM INOo Attending Dr: Lynn Rivas MD Ordering Provider: Lynn Rivas MD Date of Service: 08/01/21 E[facility] echo transthoracic: syncope Copies to: Rosanne Chaparro MD, [facility] Lynn Rivas MD Height: 69.5 in Weight: [...] 08/02/21 1201 Dictated By: Rosanne Chaparro MD, [facility] 08/02/21 0833 Signed By: 08/02/21 1201 Normal [facility] Ammoniaon 08-01-2021 Ammonia (P) [Moles/Vol] 12 umol/L Normal 11-35 [facility] Comment on above: Result Comment: PERF ORMED BY: [place] [address] PATHOLOGIST JUNIOR PHP DEVELOPER GERI MANZANO M.D. Performed By: #### A MM, BMP, HS TROP, CBC #### [facility] [address] Basic Metabolic Panelon 07-20 Calcium [Mass/Vol] 8.3 mg/dL Normal 8.2-10.2 [facility] Comment on above: Performed By: #### A MM, BMP, HS TROP, CBC #### [facility] [address] Chloride [Moles/Vol] 101 mmol/L Normal 95-114 [facility] Comment on above: Performed By: #### A MM, BMP, HS TROP, CBC #### [facility] [address] CO2 [Moles/Vol] 21.4 mmol/L Low 22.0-30.0 [facility] Comment on above: Performed By: #### A MM, BMP, HS TROP, CBC #### [facility] [address] [place] [address] [place] Creatinine [Mass/Vol] 2.15 mg/dL High 0.64-1.27 [facility] Comment on above: Performed By: #### A MM, BMP, HS TROP, CBC #### [facility] [address] [place] [address] [place] Creatinine Clr Calc Pharmacy 31.12 Normal [facility] Comment on above: Result Comment: PERF ORMED BY: [place] [address] PATHOLOGIST JUNIOR PHP DEVELOPER GERI MANZANO M.D. Performed By: #### A MM, BMP, HS TROP, CBC #### [facility] [address] Estimated GFR ( Ruthy 37 Normal [facility] Comment on above: Result Comment: GFR estimated reference range: According to KDOQI guidelines, <60 ml/min/1.73m2 is sufficient to diagnose a patient with chronic kidney disease. Performed By: #### A MM, BMP, HS TROP, CBC #### [facility] [address] [place] [address] [place] Estimated GFR (Non- Am 30 Normal [facility] Comment on above: Performed By: #### A MM, BMP, HS TROP, CBC #### [facility] [address] Glucose [Mass/Vol] 126 mg/dL High 70-100 [facility] Comment on above: Result Comment: [place] om Glucose Reference Range is dependent on time and content of last meal. Glucose of more than 200 mg/dL in a nonstressed, ambulatory subject supports the diagnosis of Diabetes Mellitus. ADA recommended reference range Performed By: #### A MM, BMP, HS TROP, CBC #### [facility] [address] Potassium [Moles/Vol] 3.9 mmol/L Normal 3.5-5.1 [facility] Comment on above: Performed By: #### A MM, BMP, HS TROP, CBC #### [facility] [address] Sodium [Moles/Vol] 133 mmol/L Low 136-146 [facility] Comment on above: Performed By: #### A MM, BMP, HS TROP, CBC #### [facility] [address] [place] [address] Urea nitrogen [Mass/Vol] 34 mg/dL High 9-23 [facility] Comment on above: Performed By: #### A MM, BMP, HS TROP, CBC #### [facility] [address] [place] [address] COVID-19 Antigenon 1 COVID-19 Antigen Healthcare Worker?: [...] be performed. Negative results do not rule Sarha Disclaimer out COVID-19 and should not be [...] its performance Sarah Disclaimer characteristic determined by [employer] and Sarah Disclaimer validated at [facility]. This Sarah Disclaimer test has not been [...] is terminated or revoked sooner. PERFORMED BY: [place] [address] PATHOLOGIST JUNIOR PHP DEVELOPER GERI MANZANO M.D. [facility] Comment on above: Performed By: #### S TUYET, COVID-19 SARAH #### [address] cervical spine wo conon 1 10-02-2020 CT cervical spine wo con [facility] [place] [address] [place] Scan Report Signed Patient: Brad Hutchison MR#: [id number] : 1945 Acct:[id number] Age/Sex: 76 / M ADM Date: 08/01/21 Loc: ER Room: Type: [facility] ER Attending Dr: Ordering Provider: [...] Champ Rae M.D.08/01/2021 3:59 PM Dictation Location: [place] [address] Transcribed By: [facility] 08/01/211558 Dictated By: Champ Rae DO 08/01/211550 Signed By: 08/01/21 155 Normal [facility] CT head/brain wo conon 08-01 CT head/brain wo con [facility] [place] [address] CT Scan Report Signed Patient: Brad Hutchison MR#: [id number] : 1945 Acct:[id number] Age/Sex: 76 / M ADM Date: 08/01/21 Loc: ER Room: Type: [facility] ER Attending Dr: Ordering Provider: [...] Champ Rae M.D.08/01/2021 3:51 PM Dictation Location: [place] [address] Transcribed By: [facility] 08/01/21 155 Dictated By: Champ Rae DO 08/01/21 1547 Signed By: 08/01/21 155 Normal [facility] Complete Blood Count Auto Di ffon 08-01-2021 Basophils (Bld) [#/Vol] 0.1 10*3/uL Normal 0.0-0.2 [facility] Comment on above: Result Comment: PERF ORMED BY: [place] [address] PATHOLOGIST JUNIOR PHP DEVELOPER GERI MANZANO M.D. Performed By: #### A MM, BMP, HS TROP, CBC #### [facility] [address] Basophils/100 WBC (Bld) 1.3 % Normal . [facility] Comment on above: Performed By: #### A MM, BMP, HS TROP, CBC #### [facility] [address] [place] [address] [place] Eosinophils (Bld) [#/Vol] 0.3 10*3/uL Normal 0.0-0.45 [facility] Comment on above: Performed By: #### A MM, BMP, HS TROP, CBC #### [facility] [address] [place] [address] [place] Eosinophils/100 WBC (Bld) 3.4 % Normal . [facility] Comment on above: Performed By: #### A MM, BMP, HS TROP, CBC #### [facility] [address] [place] [address] [place] Erythrocyte distribution width (RBC) [Ratio] 13.1 % Normal 12.0-14.8 [facility] Comment on above: Performed By: #### A MM, BMP, HS TROP, CBC #### [address] Hematocrit (Bld) [Volume fraction] 35.7 % Low 38.8-50.0 [facility] Comment on above: Performed By: #### A MM, BMP, HS TROP, CBC #### [address] Hemoglobin (Bld) [Mass/Vol] 12.0 g/dL Low 13.0-17.0 [facility] Comment on above: Performed By: #### A MM, BMP, HS TROP, CBC #### [address] Lymphocytes (Bld) [#/Vol] 1.8 10*3/uL Normal 1.00-4.8 [facility] Comment on above: Performed By: #### A MM, BMP, HS TROP, CBC #### [address] Lymphocytes/100 WBC (Bld) 22.9 % Normal . [facility] Comment on above: Performed By: #### A MM, BMP, HS TROP, CBC #### [address] MCH (RBC) [Entitic mass] 33.9 pg Normal 27.5-35.2 [facility] Comment on above: Performed By: #### A MM, BMP, HS TROP, CBC #### [address] MCV (RBC) [Entitic vol] 100.5 fL Normal 83.5-101 [facility] Comment on above: Performed By: #### A MM, BMP, HS TROP, CBC #### [address] Mean Corpuscular HGB Conc 33.7 g/dL Normal 32.5-35.6 [facility] Comment on above: Performed By: #### A MM, BMP, HS TROP, CBC #### [address] [place] [address] [place] Monocytes (Bld) [#/Vol] 0.6 10*3/uL Normal 0.0-0.8 [facility] Comment on above: Performed By: #### A MM, BMP, HS TROP, CBC #### [facility] [address] [place] [address] [place] Monocytes/100 WBC (Bld) 7.5 % Normal . [facility] Comment on above: Performed By: #### A MM, BMP, HS TROP, CBC #### [facility] [address] [place] [address] [place] Neutrophils (Bld) [#/Vol] 5.0 10*3/uL Normal 1.8-7.7 [facility] Comment on above: Performed By: #### A MM, BMP, HS TROP, CBC #### [facility] [address] [place] [address] [place] Neutrophils/100 WBC (Bld) 64.9 % Normal . [facility] Comment on above: Performed By: #### A MM, BMP, HS TROP, CBC #### [facility] [address] [place] [address] [place] Nucleated RBC/100 WBC (Bld) [Ratio] 0.1 % Normal 0-0.5 [facility] Comment on above: Performed By: #### A MM, BMP, HS TROP, CBC #### [facility] [address] [place] [address] [place] Platelet mean volume (Bld) [Entitic vol] 9.2 fL Normal 6.6-10.1 [facility] Comment on above: Performed By: #### A MM, BMP, HS TROP, CBC #### [facility] [address] [place] [address] [place] Platelets (Bld) [#/Vol] 145 10*3/uL Low 150-450 [facility] Comment on above: Performed By: #### A MM, BMP, HS TROP, CBC #### [facility] [address] [place] [address] [place] RBC (Bld) [#/Vol] 3.55 10*6/uL Low 3.90-5.60 [facility] Comment on above: Performed By: #### A MM, BMP, HS TROP, CBC #### [facility] [address] [place] [address] WBC (Bld) [#/Vol] 7.6 10*3/uL Normal 4.5-11.0 [facility] Comment on above: Performed By: #### A MM, BMP, HS TROP, CBC #### [facility] [address] [place] [address] ECG 12 lead ECGon 08-01-2021 ECG 12 lead ECG [facility] [place] [address] Electrocardiograph Report Signed Patient: Brad Hutchison MR#: [id number] : 1945 Acct:[id number] Age/Sex: 76 / M ADM Date: 08/01/21 Loc: Room: [address] [place] [address] Type: ADM IN Attending Dr: Lynn Rivas [...] Prolonged QT Confirmed by Porfirio Pryor DO ([id number]) on 08/01/2021 8:58:49 PM Referred By: Electronically Signed By:Porfirio Pryor DO Transcribed By: MUS Signed By Porfirio Pryor DO 2057 Normal [facility] ECG 12 lead ECG [facility] [place] [address] Electrocardiograph Report Signed Patient: Brad Hutchison MR#: [id number] : 1945 Acct:[id number] Age/Sex: 76 / M ADM Date: 08/01/21 Loc: Room: [address] [place] [address] Type: ADM IN Attending Dr: Lynn Rivas [...] baseline artifact Confirmed by Porfirio Pryor DO ([id number]) on 08/01/2021 8:58:16 PM Referred By: Electronically Signed By:Porfirio Pryor DO Transcribed By: MUS Signed By Porfirio Pryor DO 2057 [facility] Ethyl Alcohol Profileon 07-20 Ethanol [Mass/Vol] 38 mg/dL Normal [facility] Comment on above: Performed By: #### E BRAYDEN #### [facility] [address] [place] [address] Percent Ethanol 0.038 % [facility] Comment on above: Result Comment: PERF ORMED BY: [place] [address] PATHOLOGIST JUNIOR PHP DEVELOPER GERI MANZANO M.D. Performed By: #### E BRAYDEN #### [facility] [address] [place] [address] Sarah Ag Negativeon 08-01-20 Sarah Ag Negative Negative Normal Negative [facility] Comment on above: Result Comment: This is a duplicate Sarah SARS Antigen (KINDRA) result to be used for statistical tracking purpose only. PERFORMED BY: [place] [address] PATHOLOGIST JUNIOR PHP DEVELOPER GERI MANZANO M.D. Performed By: #### S OFBJORN COVID-19 SARAH #### [facility] [address] [place] [address] Troponin I High Sensitivityo n 08-01-2021 Troponin I High Sensitivity 12 pg/mL Normal 0-20 [facility] Comment on above: Result Comment: PERF ORMED BY: [place] [address] PATHOLOGIST JUNIOR PHP DEVELOPER GERI MANZANO M.D. Performed By: #### A MM, BMP, HS TROP, CBC #### [address] Troponin I High Sensitivity 12 pg/mL Normal 0-20 [facility] Comment on above: Result Comment: PERF ORMED BY: [place] [address] PATHOLOGIST JUNIOR PHP DEVELOPER GERI MANZANO M.D. Performed By: #### A MM, BMP, HS TROP, CBC #### [address] XR chest 1V portableon 08-01 XR chest 1V portable [facility] [place] [address] [place] [address] XRay Report Signed Patient: Brad Hutchison MR#: [id number] : 1945 Acct:[id number] Age/Sex: 76 / M ADM Date: 08/01/21 Loc: ER Room: Type: [facility] ER Attending Dr: Ordering Provider: [...] Champ Rae M.D.08/01/2021 3:35 PM Dictation Location: [place] [address] Transcribed By: [facility] 08/01/21 153 Dictated By: Champ Rae DO 08/01/21 153 Signed By: 08/01/21 153 [facility] SURGICAL PATH REPORTon 07-07 SURGICAL PATH REPORT [facility] Department of Pathology [address] [place] [address] Name: BRAD HUTCHISON : 1945 [facility] [id number] Number: Gender: Male Location: [facility] Admit 76 years Attending MIR RING Age: Provider: Ordering MIR RING Provider: Consulting: Surgical Pathology Report ACCESSION: COLLECTED DATE/TIME: RECEIVED DATE/TIME: PATHOLOGIST: [id number] 06/30/2021 16:30 EST 07/01/2021 12:02 EST FERNANDO HALEY, JEFF ORTA Final Diagnosis Report for THE [place], [place] PROSTATE TISSUE, TURP: - BENIGN PROSTATIC [...] GENEVA/elliot 07/01/2021 Tissue pathology report for: [facility], [address] [place] [id number]; ____ Print Date/ 07/07/2021 11:14 EST Number: Time: [facility] Department of Pathology [address] [place] [id number] Name: BRAD HUTCHISON : 1945 Financial [id number] Number: Gender: Male Location: [facility] Admit 76 years Attending MIR RING Age: Provider: Ordering IMR RING Provider: Consulting: Surgical Pathology Report ACCESSION: COLLECTED DATE/TIME: RECEIVED DATE/TIME: PATHOLOGIST: [id number] 06/30/2021 16:30 EST 07/01/2021 12:02 EST FERNANDO HALEY, JEFF ORTA Gross Description PATHOLOGY SERVICES PROVIDED BY [employer], [facility] (CLIA #[id number]) in cooperation with [facility] at [address] [place] [address] (CLIA #[id number]) Codes CPT CODE: [id number] ____ Print Date/ 07/07/2021 11:14 EST Number: Time: Normal [facility] Comment on above: Performed By: #### 9 [id number] #### [facility] Laboratory Services [address] [place] [address] Executive Vice President And Chief Operating Officer: Alexander Yen MD Creatinine 07-29-2018 Creatinine mass conc 1.36 mg/dL High 0.50-1.30 [facility] Comment on above: Performed By: #### 1 [id number] ####[facility] [address] [place] [address] GFR/1.73 sq M.predicted MDRD vol rate/area 52 mL/min/{1.73_m2} Normal [facility] Comment on above: Result Comment: Inte rpretation for Chronic Kidney Disease:Stages 1&2 >60 Healthy or potential kidney damage.Mild decrease of GFR.Stage 3 30-59 Moderate decrease of GFR.Stage 4 15-29 Severe decrease of GFR.Stage 5 <15 Kidney failure or on dialysis. Performed By: #### 1 [id number] ####[facility] [id number] [place] [address] Electrolyte Panelon 07-29-20 18 Anion gap 3 molar conc 11 mmol/L Normal 10-20 [facility] Comment on above: Performed By: #### 1 [id number] ####[facility] [address] [place] [address] Chloride molar conc 104 mmol/L Normal 98-107 [facility] Comment on above: Performed By: #### 1 [id number] ####[facility] [address] [place] [address] HCO3 molar conc (Bld) 30 mmol/L Normal 21-32 [facility] Comment on above: Performed By: #### 1 [id number] ####[facility] [id number] [place] [address] Potassium molar conc 3.6 mmol/L Normal 3.5-5.1 [facility] Comment on above: Performed By: #### 1 [id number] ####[facility] [address] [place] [address] Sodium molar conc 141 mmol/L Normal 136-145 [facility] Comment on above: Performed By: #### 1 [id number] ####[facility] [address] [place] [address] Urea Nitrogenon 07-29-2018 Urea nitrogen mass conc 20 mg/dL Normal 6-23 [facility] Comment on above: Performed By: #### [id number] ####[facility] [address] [place] [address] Vital Signs Date Time Vital Sign Value Performing Clinician Javier williamson 03-19-2023 10:23-0400 Blood Pressure Location Mir ELISA [facility] 03-19-2023 10:23-0400 Diastolic blood pressure 70 mm[Hg] Mir RING [facility] 03-19-2023 10:23-0400 Heart rate 68 /min Mir RING [facility] 03-19-2023 10:23-0400 Respiratory rate 16 /min Mir RING [facility] 03-19-2023 10:23-0400 Systolic blood pressure 106 mm[Hg] Mir RING [facility] 11-17-2022 10:30-0400 Blood Pressure Location Mir RING [facility] 11-17-2022 10:30-0400 Diastolic blood pressure 87 mm[Hg] Mir RING [facility] 11-17-2022 10:30-0400 Heart rate 68 /min Mir RING [facility] 11-17-2022 10:30-0400 Respiratory rate 16 /min Mir RING [facility] 11-17-2022 10:30-0400 Systolic blood pressure 128 mm[Hg] Mir RING [facility] 11-14-2021 10:55-0400 Blood Pressure Location Mir RING [facility] 11-14-2021 10:55-0400 Diastolic blood pressure 80 mm[Hg] Mir RING [facility] 11-14-2021 10:55-0400 Heart rate 68 /min Mir RING [facility] 11-14-2021 10:55-0400 Respiratory rate 16 /min [facility] 11-14-2021 10:55-0400 Systolic blood pressure 138 mm[Hg] Mir RING [facility] Encounters Encounter Date Encounter Type Care Provider Facility Start: 03-21-2024 ambulatory Mir RING Facili ty:[facility] [place] Start: 03-19-2023 End: 03-20-2023 ambulatory Mir RING Facility:[facility] Start: 03-19-2023 End: 03-19-2023 Patient encounter procedure Mir RING [facility] Start: 11-17-2022 End: 11-18-2022 ambulatory Mir RING Facility:[facility] Start: 11-17-2022 End: 11-17-2022 Patient encounter procedure Mir RING [facility] Start: 10-27-2022 End: 10-27-[address] DOCTOR JENKINS Facility:[facility] Start: 07-03-2022 End: 07-03-2022 ambulatory JJ DACOSTA Facility:[facility] Start: 11-14-2021 End: 11-14-2021 Patient encounter procedure Mir RING [facility] Start: 08-06-2018 Patient encounter procedure ARCHIE HERNÁNDEZ [...] Provider Fa crescencio 05-30-2022 SARS-CoV-2 (COVID-19 ) [id number] Mir RING [facility] 02-15-2022 SARS-CoV-2 mRNA (tygmdmhuolh-jikw-pjlfzh e) vaccine Mir RING [facility] 08-01-2021 tetanus toxoid, redu dontae diphtheria toxoid, and acellular pertussis vaccine, adsorbed Mir RING [facility] 07-01-2021 SARS-CoV-2 (COVID-19 ) mRNA BNT-162b2 vax Mir RING [facility] 06-02-2021 influenza virus vacc ine, unspecified formulation Mir RING [facility] 04-23-2021 pneumococcal polysaccharide vaccine, 23 valent Mir RING [facility] 04-20-2021 influenza virus vacc ine, unspecified formulation Mir RING [facility] 09-22-2020 SARS-CoV-2 (COVID-19 ) mRNA BNT-162b2 vax Mir RING [facility] Comment on above: Result Comment: 2022: [id number] 09-01-2020 SARS-CoV-2 (COVID-19 ) mRNA BNT-162b2 vax Mir [employer] [facility] Comment on above: Result Comment: 2022: [id number] 06-01-2020 influenza virus vacc ine, unspecified formulation sambaash [facility] 06-17-2019 influenza virus vacc ine, unspecified formulation sambaash [facility] 06-17-2018 influenza virus vacc ine, unspecified formulation sambaash [facility] 06-11-2017 influenza virus vacc ine, unspecified formulation sambaash [facility] 07-10-2014 influenza virus vacc ine, unspecified formulation sambaash [facility] Payers Date Payer Category Payer Medicaid [id number] 1957 Medicare [id number] 1945 Unknown [id number] 2.16. [id number] 1945 Unknown [id number] 2.16.8 [id number] 1945 Unknown [id number] 2.16.8 [id number] 1945 Unknown [id number] 2.16.84 [id number] 1945 Unknown [id number] 2.16.84 [id number] 1945 Unknown [id number] 2.16.8 [id number] 1945 Unknown [id number] 2.16.8 [id number] 1945 Unknown [id number] 2.16.8 [id number] Medicare [id number] Self-pay Self Pay [id number] Social History Date Type Detail Facility Tobacco smoking stat [facility] Unknown if ever smoked [facility] Start: 1945 Sex Assigned At Male F [facility] Start: 05-20-2021 End: 11-17-2022 Tobacco smoking status Never smoked tobacco (finding) [facility] Sex Assigned At Male [facility] Tobacco smoking status Never [facility] Goals Date Patient Goal Desired Activity /State Functional Status Date Assessment Result Facility 03-19-2023 Functional Status N/A [facility] 11-17-2022 Functional Status N/A [facility] Hospital Discharge instructions 03-19-2023 Note Date [...] urethra. Follow these instructions at home: Take rotg-hbg-vqzfjlc and prescription medicines only as told by [...] provider. Document Revised: 02/22/2022 Document Reviewed: 02/22/2022 [employer] Patient Education 2022 [employer]. Follow Up Care 11/17/2022 11:43:25 With:ELISA HALEY, Mir Bender, URL Address: [facility] [address] , [place] [address]- [phone] When: Unknown Comments:1 year [facility] Discharge instructions 11-17-2022 Note [...] nerve stimulation). For women, using a medical or surgical instrument maker to prevent urine leaks. This is a [...] right after experiencing incontinence. General instructions Take sajv-suf-dnzebnw and prescription medicines only as told by [...] 09/13/2005 Document Revised: 08/16/2018 Document Reviewed: 11/15/2017 [employer] Patient Education 2020 [employer]. Follow Up Care 11/14/2021 11:50:03 With:ELISA HALEY, Mir Bender, URL Address: [address] [place] [id number]- When: Unknown [facility] Hospital Discharge instructions 11-14-2021 Note Date [...] 08/06/2006 Document Revised: 04/25/2019 Document Reviewed: 07/06/2017 [employer] Patient Education 2020 [employer]. 11/14/2021 11:43:28 Overactive Bladder, Adult Overactive Bladder, [...] fried and sweet foods. General instructions Take hugz-xuo-ylhqpew and prescription medicines only as told by [...] 06/02/2010 Document Revised: 11/27/2019 Document Reviewed: 08/22/2018 [employer] Patient Education 2019 [employer]. 11/14/2021 11:43:25 Benign Prostatic Hyperplasia Benign Prostatic [...] urethra. Follow these instructions at home: Take pjwc-qqi-vtyrdpq and prescription medicines only as told by [...] 08/06/2006 Document Revised: 07/01/2019 Document Reviewed: 09/10/2017 [employer] Patient Education 2020 [employer] Follow Up Care 08/01/2021 12:20:44 With:ELISA HALEY, FATOUMATA Gabriel Address: [facility] [address] , [place] [address]- [phone] When:11/14/2022 Comments:1 year fu [facility] Evaluation + Plan note Note Date & Type Note Facility Evaluation + Plan note Future Appointments Appointment Date:11/17/2022 10:15:00 AM Scheduled Provider:Mir RING MD Location:[facility] Appointment Type:URO Office Visit [facility] Evaluation + Plan note Note Date & Type Note Facility Evaluation + Plan note Future Appointments Appointment Date:03/19/2023 10:15:00 AM Scheduled Provider:Mir RING MD Location:[facility] Appointment Type:URO Office Visit [facility] Evaluation + Plan note Note Date & Type Note Facility Evaluation + Plan note Future Appointments Appointment Date:03/21/2024 09:30:00 AM Scheduled Provider:Mir RING MD Location:[facility] Appointment Type:URO Office Visit [facility] Hospital course Narrative Note Date & Type Note Facility Hospital course Narrative No data available for this section [facility] Progress note Note Date & Type Note Facility Progress note No data available for this section [facility] Summary Purpose Family History No Family History [...] section and content) DATE CREATED AUTHOR 08/10/2018 [facility] DATE CREATED AUTHOR AUTHOR'S ORGANIZ ATION 08/12/2018 [facility] Healthcare DATE CREATED AUTHOR AUTHOR'S ORGANIZ ATION 08/27/2021 [facility] DATE CREATED AUTHOR AUTHOR'S ORGANIZ ATION 09/20/2021 [facility] DATE CREATED AUTHOR AUTHOR'S ORGANIZ ATION 10/31/2022 [facility] DATE CREATED AUTHOR AUTHOR'S ORGANIZ ATION 03/20/2023 [facility] FOR RECORDS PERTAINING TO PATIENTS [...] BE BASED ON THE PRIMARY CLINICAL RECORDS. [employer] provides no warranty or guarantee of the accuracy or completeness of information in this document.
[2023-10-10 07:50] LABS: Basophils Absolute Auto 0.1 10^3/uL (0.0-0.1); Basophils Percent Auto 1.3 % (0.2-2.0); Eosinophils Percent Auto 0.1 % (0.9-7.0); Hematocrit 32.7 % (42.0-54.0); Hemoglobin 10.6 g/dL (14.0-18.0); Immature Granulocytes Abs Auto 0.01 10^3/uL (0.00-0.03); Immature Granulocytes Pct Auto 0.1 % (0.0-0.5); Lymphocytes Absolute Auto 1.7 10^3/uL (1.2-3.8); Lymphocytes Percent Auto 24.6 % (20.5-60.0); Mean Corpuscular HGB Conc 32.4 g/dL (29.9-35.2); Mean Corpuscular Hemoglobin 31.9 pg (25.9-34.0); Mean Corpuscular Volume 98.5 fL (80.0-94.0); Mean Platelet Volume 9.4 fL (9.5-13.5); Monocytes Absolute Auto 0.5 10^3/uL (0.3-0.8); Monocytes Percent Auto 7.9 % (1.7-12.0); Neutrophils Absolute Auto 4.5 10^3/uL (1.4-6.5); Platelet Count 185 10^3/uL (150-450); Red Blood Count 3.32 10^6/uL (4.70-6.10); Red Cell Distribution Width 12.9 % (11.0-15.0); White Blood Count 6.8 10^3/uL (4.0-11.0)
[2023-10-10 08:13] LABS: Bilirubin Urine NEGATIVE (NEGATIVE); Blood Urine NEGATIVE (NEGATIVE); Clarity Urine CLEAR (CLEAR); Color Urine LT. YELLOW (YELLOW); Glucose Urine UA NEGATIVE (NEGATIVE); Ketones Urine NEGATIVE (NEGATIVE); Leukocyte Esterase Urine NEGATIVE (NEGATIVE); Nitrite Urine NEGATIVE (NEGATIVE); Protein Urine NEGATIVE (NEG/TRACE); Specific Gravity Urine 1.015 (1.005-1.025); Urobilinogen Urine 0.2 EU/dL (0.2-1.0)
[2023-10-10 08:15] LABS: Urine Microscopic Indicated NO
[2023-10-10 08:55] LABS: Alanine Aminotransferase 33 U/L (16-63); Albumin Globulin Ratio 0.8; Albumin Level 2.6 g/dL (3.4-5.0); Alkaline Phosphatase 81 U/L (46-116); Aspartate Amino Transferase 26 U/L (15-37); BUN Creatinine Ratio 25.9; Bilirubin Total 0.4 mg/dL (0.2-1.0); Calcium 8.1 mg/dL (8.5-10.1); Carbon Dioxide 24.9 mmol/L (21.0-32.0); Chloride 105 mmol/L (98-107); Estimated GFR (African America 56 (>=60); Estimated GFR (Non-African Ame 47 (>=60); Globulin 3.1 g/dL; Glucose 97 mg/dL (74-106); Potassium 3.9 mmol/L (3.5-5.1); Sodium 138 mmol/L (136-145); Total Protein 5.7 g/dL (6.4-8.2)
== END 2023-10-10 01:52 | disposition home or self-care (01) ==
LOC: LAB 01:51
PROVIDERS: PCP Family Medicine; Visit Provider Nurse Practitioner Family
DX: F32.9 Major depressive disorder, single episode, unspecified (principal); I10 Essential (primary) hypertension
CPT/HCPCS: 36415; 80053; 81003; 85025

== ENCOUNTER 2023-11-12 02:00 | Outpatient (REF) | payer MEDICARE, MEDICAID, SELFPAY ==
--- OUTSIDE RECORDS SUMMARY | 2023-11-12 02:04 | XMS_ITS | CCD ---
Author Organization [facility] Care Team Providers Care Telephone Operator Chief Name Role Phone ARCHIE HERNÁNDEZ Unavailable Unavailable CARLOS ALCANTAR Unavailable Unavailable ARCHIE HERNÁNDEZ Unavailable Unavailable CARLOS ALCANTAR Unavailable Unavailable NONE, XXXX Primary Care Physician Unavailab JJ Boyer Admitting Unavailable JJ DACOSTA Attending Unavailable ORTIZ, DR GONZALEZ Primary Care Unavailable JJ DACOSTA Consulting Unavailable [facility], DR CORBIN Admitting Unavailable [facility], DR CORBIN Attending Unavailable ORTIZ, DR GONZALEZ Primary Care Unavailable [facility], DR CORBIN Consulting Unavailable Mir RING Attending Unavailable Mir RING Attending Unavailable Mir RING Attending Unavailable Unavailable Unavailable Unavailable Allergies Allergy Classification Reported Allergen(s) Allergy Type Date of Onset Reaction(s) Facility (1 source) No Known Medication Allergies; Translations: [No Known Medication Allergies] Propensity to adverse reactions (disorder) [facility] Repository Medications Current Medications Medication Drug [...] 1 mL by mouth every four hours Milagros-Tussin DM 10 mg-100 mg/5 mL oral [...] 0 Start Date: 05/20/21 Status: Ordered sennosides, mcc 8.6 mg oral tablet (4 sources) Start: [...] Test Name Value Interpretation Reference Range Facility Care Home Recordson 03-20 Care Home Records [id number]#[id number] D:127 Normal [facility] Ambulatory Visit Summaryon 0 03-19-2023 Ambulatory Visit Summary JOSEBRAD Doretha :1945 Visit Date:03/19/2023 Ambulatory Visit Instructions [...] year Where: [facility] [address], [place] [address] [phone] Medications What How Much When Instructions Unchanged [...] prescribing physician (more content not included)... Normal [facility] Patient Educationon 03-19-20 Patient Education Urology Benign Prostatic Hyperplasia Benign [...] Follow these instructions at home: ? Take ocrn-gvp-gnhfglc and prescription medicines only as told by [...] the medicine (more content not included)... Normal [facility] Urology Office/Clinic Noteon 03-19-2023 Urology Office/Clinic [...] makes it to the restroom. Spoke to long-term staff ([facility]), nurse stated patient is always incontinent and rarely ever voids on his own. Follow-up With When Contact Information ELISA HALEY, Mir Bender, URL [facility] [address], [place] [address] [phone] Additional Instructions: 1 year Patient Education Benign [...] Use:., 03 (more content not included)... Normal [facility] Comment on above: Result Comment: Elec tronically Signed By: Mir RING MD\.br\Date and Time Signed: 03/19/23 11:00 EDT\.br\Electronically Co-Signed By: Barb Valentin\.br\Date and Time Co-Signed: 03/19/23 10:55 EDT Ambulatory Visit Summaryon 0 11-17-2022 Ambulatory Visit Summary RBAD HUTCHISON :1945 Visit Date:11/17/2022 Ambulatory Visit Instructions [...] Schedule the Following Appointments Follow Up with Mir RING MD, URL When: Where: [address] [place] [address]- Medications What How Much When Instructions Unchanged [...] this condit (more content not included)... Normal [facility] Home Recordson 11-17 Care Home Records [id number] D:127 Normal [facility] Patient Educationon 11-18-19 Patient Education Urology [...] stimulation). ? For women, using a medical screener to prevent urine leaks. This is a [...] after experiencing incontinence. General instructions ? Take scwe-osd-lkzdudl and prescription medicines only as (more content not included)... Normal [facility] Urology Office/Clinic Noteon 11-17-2022 Urology Office/Clinic Note Chief Complaint 1yr follow up HPI Staff 1yr to BPH Incontinence w/o sensory awareness & Frequency. *Flomax therapy was DC'd at time of last encounter Pt states he does wear a brief. Denies incontinence/leaking. Did call Care Home, Spoke to pt's nurse, stated pt [...] urge to void when sleeping. Spoke to long-term staff ([facility]), nurse stated patient is always incontinent and rarely ever voids on his own. Follow-up With When Contact Information ELISA HALEY, Mir Bender, URL [address] [place] [address]- Additional Instructions: 4 months to starting new medication Patient Education Urinary Incontinence Sera Finnegand, personally scribed for Dr. Ring on 11/17/2022 [...] losartan 1 (more content not included)... Normal [facility] Comment on above: Result Comment: Elec tronically Signed By: Mir RING MD\.br\Date and Time Signed: 11/17/22 11:36 EDT\.br\Electronically Co-Signed By: Sera Calhoun.br\Date and Time Co-Signed: 11/17/22 11:34 EDT URIC ACID SERUMon 10-27-2022 Urate [Mass/Vol] 4.2 mg/dL Normal 3.5-7.2 [facility] Comment on above: Performed By: #### U VICTOR HUGO #### [facility] [address] [address] [address] Neymar Guy URIC ACID SERUMon 07-03-2022 Urate [Mass/Vol] 4.3 mg/dL Normal 3.5-7.2 [facility] Comment on above: Performed By: #### U VICTOR HUGO #### [facility] [address] [address] [address] Neymar Guy Addendum Reporton 08-26-2021 Addendum Report [facility] Department of Pathology [address] [place] [id number] Name: BRAD HUTCHISON : 1945 Financial [id number] Number: Gender: Male Location: [facility] Admit 76 years Attending MIR RING Age: Provider: Ordering MIR RING Provider: Consulting: Surgical Pathology Report ACCESSION: COLLECTED DATE/TIME: RECEIVED DATE/TIME: PATHOLOGIST: [id number] 06/30/2021 16:30 EST 07/01/2021 12:02 MARTINEZ KING MD, JEFF ORTA AP Surgical Path Addendum Report A PIN4 immunostain was used in evaluation of this specimen and is negative. 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 - NEGATIVE FOR MALIGNANCY. JEFF KING PATHOLOGIST (Electronic Signature) Date Verified 07/07/2021 CL Clinical Data PRE-OP DIAGNOSIS: Not specified POST-OP DIAGNOSIS: Enlarged prostate with lower urinary tract symptoms PROCEDURES: Cystoscopy, TURP SPECIMEN: Prostate tissue / Ambulatory Surgery ____ Print Date/ 08/26/2021 15:01 EST Number: Time: [facility] Department of Pathology [address] [place] [phone] Name: BRAD HUTCHISON : 1945 Financial [id number] Number: Gender: Male Location: [facility] Admit 76 years Attending MIR RING Age: Provider: Ordering MIR RING Provider: Consulting: Surgical Pathology Report ACCESSION: COLLECTED DATE/TIME: RECEIVED DATE/TIME: PATHOLOGIST: [id number] 06/30/2021 16:30 EST 07/01/2021 12:02 EST FERNANDO HALEY, JEFF ORTA Gross Description Labeled prostate tissue. Received in formalin are fragments of firm du soft tissue measuring 2.0 x 1.0 x 0.6 cm in aggregate. The specimen is entirely submitted in cassette A1- A2. /elliot 07/01/2021 Tissue pathology report for: [facility], [address] [place] [address]; PATHOLOGY SERVICES PROVIDED BY [facility] [employer], [facility] (CLIA #[id number]) in cooperation with [facility] at [address] [place] [address] (CLIA #[id number]) Codes CPT CODE: 76967 [id number] ____ Print Date08/26/2021 15:01 EST Number: Time: [facility] Comment on above: Performed By: #### 9 [id number], [id number] #### [facility] Laboratory Services [address] [place], [place] [address] Systems Architect: Alexander Yen MD COVID-[address] [place] [address] 08-02-2021 SARS-CoV-2 (COVID-19) RNA PERRY+probe Ql (Unsp spec) Negative Normal Negative [facility] [place] [facility] Comment on above: Order Comment: Healt hcare Worker?: N Result Comment: Testing for SARS-CoV-2 by RT-PCR This test was developed and its performance characteristics determined by [employer] and validated at the [facility]. This test has not been FDA [...] is terminated or revoked sooner. PERFORMED BY: [place] [address] PATHOLOGIST CURTAIN FELLER BLINDSTITCH GERI MANZANO M.D. Performed By: #### A MM, BMP, HS TROP, CBC #### [address] ECG 12 lead ECGon 08-02-2021 ECG 12 lead ECG [facility] [place] [address] Electrocardiograph Report Signed Patient: Brad Hutchison MR#: [id number] : 1945 Acct:[id number] Age/Sex: 76 / M ADM Date: 08/01/21 Loc: 4 Room: [address] [place] [address] Type: ADM INOo Attending Dr: Lynn Rivas [...] MUS Signed By Ivan Baldwin MD 171 [facility] echo transthoracicon [facility] echo transthoracic [facility] [place] [address] Echocardiogram Signed Patient: Brad Hutchison MR#: [id number] : 1945 Acct:[id number] Age/Sex: 76 / M ADM Date: 08/01/21 Loc: Room: [address] [place] [address] Type: ADM INOo Attending Dr: Lynn Rivas MD Ordering Provider: Lynn Rivas MD Date of Service: 08/01/21 [facility] echo transthoracic: syncope Copies to: Rosanne Chaparro MD, [facility] Lynn Rivas MD Height: 69.5 in Weight: 186 lb Performed By: Mony Perez ROYAL BSA: 2.0 m2 BP: 101/71 mmHg HR: [...] V1 VTI: 26.3 cm Transcribed By: ROSIE 08/02/211200 Dictated By: Rosanne Chaparro MD, [facility] 08/02/21 0833 Signed By: 08/02/211200 [facility] 08-01-2021 Ammonia (P) [Moles/Vol] 12 umol/L Normal 11-35 [facility] [place] [facility] Comment on above: Result Comment: PERF ORMED BY: [place] [address] PATHOLOGIST CURTAIN FELLER BLINDSTITCH GERI MANZANO M.D. Performed By: #### A MM, BMP, HS TROP, CBC #### [facility] [address] [place] [address] Basic Metabolic Panelon 07-20 Calcium [Mass/Vol] 8.3 mg/dL Normal 8.2-10.2 [facility] Comment on above: Performed By: #### A MM, BMP, HS TROP, CBC #### [address] Chloride [Moles/Vol] 101 mmol/L Normal 95-114 [facility] Comment on above: Performed By: #### A MM, BMP, HS TROP, CBC #### [address] CO2 [Moles/Vol] 21.4 mmol/L Low 22.0-30.0 [facility] Comment on above: Performed By: #### A MM, BMP, HS TROP, CBC #### [address] Creatinine [Mass/Vol] 2.15 mg/dL High 0.64-1.27 [facility] [place] [facility] Comment on above: Performed By: #### A MM, BMP, HS TROP, CBC #### [facility] [address] [place] [address] [place] Creatinine Clr Calc Pharmacy 31.12 [facility] Comment on above: Result Comment: PERF ORMED BY: [place] [address] PATHOLOGIST CURTAIN FELLER BLINDSTITCH GERI MANZANO M.D. Performed By: #### A MM, BMP, HS TROP, CBC #### [facility] [address] [place] [address] Estimated GFR ( Ruthy 37 [facility] Comment on above: Result Comment: GFR estimated reference range: According to KDOQI guidelines, <60 ml/min/1.73m2 is sufficient to diagnose a patient with chronic kidney disease. Performed By: #### A MM, BMP, HS TROP, CBC #### [facility] [address] Estimated GFR (Non- Am 30 Normal [facility] [place] [facility] Comment on above: Performed By: #### A MM, BMP, HS TROP, CBC #### [facility] [address] Glucose [Mass/Vol] 126 mg/dL High 70-100 [facility] Comment on above: Result Comment: [place] om Glucose Reference Range is dependent on time and content of last meal. Glucose of more than 200 mg/dL in a nonstressed, ambulatory subject supports the diagnosis of Diabetes Mellitus. ADA recommended reference range Performed By: #### A MM, BMP, HS TROP, CBC #### [facility] [address] [place] [address] Potassium [Moles/Vol] 3.9 mmol/L Normal 3.5-5.1 [facility] [place] [facility] Comment on above: Performed By: #### A MM, BMP, HS TROP, CBC #### [facility] [address] [place] [address] Sodium [Moles/Vol] 133 mmol/L Low 136-146 [facility] Comment on above: Performed By: #### A MM, BMP, HS TROP, CBC #### [facility] [address] [place] [address] Urea nitrogen [Mass/Vol] 34 mg/dL High 9-23 [facility] Comment on above: Performed By: #### A MM, BMP, HS TROP, CBC #### [facility] [address] [place] [address] COVID-19 Antigenon 1 COVID-19 Antigen Healthcare Worker?: [...] its performance Sarah Disclaimer characteristic determined by [employer] and Sarah Disclaimer validated at [facility]. This Sarah Disclaimer test has not [...] is terminated or revoked sooner. PERFORMED BY: [place] [address] PATHOLOGIST CURTAIN FELLER BLINDSTITCH GERI MANZANO M.D. [facility] Comment on above: Performed By: #### S TUYET COVID-19 SARAH #### [address] cervical spine wo conon 1 10-02-2020 CT cervical spine wo con [facility] [place] [address] [place] [address] CT Scan Report Signed Patient: Brad Hutchison MR#: [id number] : 1945 Acct:[id number] Age/Sex: 76 / M ADM Date: 08/01/21 Loc: ER Room: Type: [facility] ER Attending Dr: Ordering Provider: Porfirio Pryor [...] Champ Rae M.D.08/01/2021 3:59 PM Dictation Location: [place] [address] Transcribed By: [facility] 08/01/211558 Dictated By: Champ Rae DO 08/01/211550 Signed By: 08/01/21 155 Normal [facility] [place] [facility] CT head/brain wo conon 08-01 CT head/brain wo con [facility] [place] [address] CT Scan Report Signed Patient: Brad Hutchison MR#: [id number] : 1945 Acct:[id number] Age/Sex: 76 / M ADM Date: 08/01/21 Loc: ER Room: Type: [facility] ER Attending Dr: Ordering Provider: Porfirio Pryor [...] Champ Rae M.D.08/01/2021 3:51 PM Dictation Location: [place] [address] Transcribed By: [facility] 08/01/21 1551 Dictated By: Champ Rae DO 08/01/21 1547 Signed By: 08/01/21 1551 Normal [facility] [place] [facility] Complete Blood Count Auto Di ffon 08-01-2021 Basophils (Bld) [#/Vol] 0.1 10*3/uL Normal 0.0-0.2 [facility] [place] [facility] Comment on above: Result Comment: PERF ORMED BY: [place] [address] PATHOLOGIST CURTAIN FELLER BLINDSTITCH GERI MANZANO M.D. Performed By: #### A MM, BMP, HS TROP, CBC #### [facility] [address] [place] [address] Basophils/100 WBC (Bld) 1.3 % Normal . [facility] [place] [facility] Comment on above: Performed By: #### A MM, BMP, HS TROP, CBC #### [facility] [address] [place] [address] [place] Eosinophils (Bld) [#/Vol] 0.3 10*3/uL Normal 0.0-0.45 [facility] Comment on above: Performed By: #### A MM, BMP, HS TROP, CBC #### [place] [address] [place] Eosinophils/100 WBC (Bld) 3.4 % Normal . [facility] Comment on above: Performed By: #### A MM, BMP, HS TROP, CBC #### [facility] [address] [place] [address] [place] Erythrocyte distribution width (RBC) [Ratio] 13.1 % Normal 12.0-14.8 [facility] Comment on above: Performed By: #### A MM, BMP, HS TROP, CBC #### [facility] [address] Hematocrit (Bld) [Volume fraction] 35.7 % Low 38.8-50.0 [facility] Comment on above: Performed By: #### A MM, BMP, HS TROP, CBC #### [address] Hemoglobin (Bld) [Mass/Vol] 12.0 g/dL Low 13.0-17.0 [facility] Comment on above: Performed By: #### A MM, BMP, HS TROP, CBC #### [address] Lymphocytes (Bld) [#/Vol] 1.8 10*3/uL Normal 1.00-4.8 [facility] Comment on above: Performed By: #### A MM, BMP, HS TROP, CBC #### [address] Lymphocytes/100 WBC (Bld) 22.9 % Normal . [facility] Comment on above: Performed By: #### A MM, BMP, HS TROP, CBC #### [address] MCH (RBC) [Entitic mass] 33.9 pg Normal 27.5-35.2 [facility] Comment on above: Performed By: #### A MM, BMP, HS TROP, CBC #### [address] MCV (RBC) [Entitic vol] 100.5 fL Normal 83.5-101 [facility] Comment on above: Performed By: #### A MM, BMP, HS TROP, CBC #### [address] Mean Corpuscular HGB Conc 33.7 g/dL Normal 32.5-35.6 [facility] Comment on above: Performed By: #### A MM, BMP, HS TROP, CBC #### [address] Monocytes (Bld) [#/Vol] 0.6 10*3/uL Normal 0.0-0.8 [facility] Comment on above: Performed By: #### A MM, BMP, HS TROP, CBC #### [facility] [address] [place] [address] [place] Monocytes/100 WBC (Bld) 7.5 % Normal . [facility] Comment on above: Performed By: #### A MM, BMP, HS TROP, CBC #### [facility] [address] Neutrophils (Bld) [#/Vol] 5.0 10*3/uL Normal 1.8-7.7 [facility] Comment on above: Performed By: #### A MM, BMP, HS TROP, CBC #### [facility] [address] Neutrophils/100 WBC (Bld) 64.9 % Normal . [facility] Comment on above: Performed By: #### A MM, BMP, HS TROP, CBC #### [facility] [address] [place] [address] [place] Nucleated RBC/100 WBC (Bld) [Ratio] 0.1 % Normal 0-0.5 [facility] Comment on above: Performed By: #### A MM, BMP, HS TROP, CBC #### [facility] [address] Platelet mean volume (Bld) [Entitic vol] 9.2 fL Normal 6.6-10.1 [facility] Comment on above: Performed By: #### A MM, BMP, HS TROP, CBC #### [facility] [address] [place] [address] [place] Platelets (Bld) [#/Vol] 145 10*3/uL Low 150-450 [facility] Comment on above: Performed By: #### A MM, BMP, HS TROP, CBC #### [facility] [address] [place] [address] [place] RBC (Bld) [#/Vol] 3.55 10*6/uL Low 3.90-5.60 [facility] Comment on above: Performed By: #### A MM, BMP, HS TROP, CBC #### [facility] [address] [place] [address] WBC (Bld) [#/Vol] 7.6 10*3/uL Normal 4.5-11.0 [facility] Comment on above: Performed By: #### A MM, BMP, HS TROP, CBC #### [facility] [address] [place] [address] ECG 12 lead ECGon 08-01-2021 ECG 12 lead ECG [facility] [place] [address] Electrocardiograph Report Signed Patient: Brad Hutchison MR#: [id number] : 1945 Acct:[id number] Age/Sex: 76 / M ADM Date: 08/01/21 Loc: Room: [address] [place] [address] Type: ADM IN Attending Dr: Lynn Rivas MD Ordering Provider: Porfirio rPyor DO Date of Service: 08/01/21 ECG/ECG 12 [...] Prolonged QT Confirmed by Porfirio Pryor DO ([id number]) on 08/01/2021 8:58:49 PM Referred By: Electronically Signed By:Porfirio Pryor DO Transcribed By: MUS Signed By Porfirio Pryor DO 2057 Normal [facility] [place] [facility] ECG 12 lead ECG [facility] [place] [address] Electrocardiograph Report Signed Patient: Brad Hutchison MR#: [id number] : 1945 Acct:[id number] Age/Sex: 76 / M ADM Date: 08/01/21 Loc: 4 Room: [address] [place] [address] Type: ADM IN Attending Dr: Lynn Rivas [...] baseline artifact Confirmed by Porfirio Pryor DO ([id number]) on 08/01/2021 8:58:16 PM Referred By: Electronically Signed By:Porfirio Pryor DO Transcribed By: MUS Signed By Porfirio Pryor DO 2057 [facility] Ethyl Alcohol Profileon 07-20 Ethanol [Mass/Vol] 38 mg/dL Normal [facility] Comment on above: Performed By: #### E BRAYDEN #### [address] Percent Ethanol 0.038 % [facility] Comment on above: Result Comment: PERF ORMED BY: [place] [address] PATHOLOGIST CURTAIN FELLER BLINDSTITCH GERI MANZANO M.D. Performed By: #### E BRAYDEN #### [facility] [address] [place] [address] Sarah Ag Negativeon 08-01-20 Sarah Ag Negative Negative Normal Negative [facility] Comment on above: Result Comment: This is a duplicate Sarha SARS Antigen (KINDRA) result to be used for statistical tracking purpose only. PERFORMED BY: [place] [phone] PATHOLOGIST CURTAIN FELLER BLINDSTITCH GERI MANZANO M.D. Performed By: #### S TUYET COVID-19 SARAH #### [facility] [address] [place] [address] [place] Troponin I High Sensitivityo n 08-01-2021 Troponin I High Sensitivity 12 pg/mL Normal 0-20 [facility] [place] [facility] Comment on above: Result Comment: PERF ORMED BY: [place] [address] PATHOLOGIST CURTAIN FELLER BLINDSTITCH GERI MANZANO M.D. Performed By: #### A MM, BMP, HS TROP, CBC #### [facility] [address] [place] [address] [place] Troponin I High Sensitivity 12 pg/mL Normal 0-20 [facility] [place] [facility] Comment on above: Result Comment: PERF ORMED BY: [place] [address] PATHOLOGIST CURTAIN FELLER BLINDSTITCH GERI MANZANO M.D. Performed By: #### A MM, BMP, HS TROP, CBC #### [address] [address] [place] XR chest 1V portableon 08-01 XR chest 1V portable [facility] [place] [address] [place] [address] XRay Report Signed Patient: Brad Hutchison MR#: [id number] : 1945 Acct:[id number] Age/Sex: 76 / M ADM Date: 08/01/21 Loc: ER Room: Type: [facility] ER Attending Dr: Ordering Provider: Porfirio Pryor [...] Champ Rae M.D.08/01/2021 3:35 PM Dictation Location: [place] [address] Transcribed By: [facility] 08/01/21 1535 Dictated By: Champ Rae DO 08/01/21 1533 Signed By: 08/01/21 1535 [facility] SURGICAL PATH REPORTon 07-07 SURGICAL PATH REPORT [facility] Department of Pathology [address] [place] [phone] Name: BRAD HUTCHISON : 1945 [facility] [id number] Number: Gender: Male Location: [facility] Admit 76 years Attending MIR RING Age: Provider: Ordering MIR RING Provider: Consulting: Surgical Pathology Report ACCESSION: COLLECTED DATE/TIME: RECEIVED DATE/TIME: PATHOLOGIST: [id number] 06/30/2021 16:30 EST 07/01/2021 12:02 EST FERNANDO HALEY, JEFF ORTA Final Diagnosis Report for THE MELRUDE, [place] PROSTATE TISSUE, TURP: - BENIGN PROSTATIC [...] HW/elliot 07/01/2021 Tissue pathology report for: [facility], [address] [place] [id number]; ____ Print Date/ 07/07/2021 11:14 EST Number: Time: [facility] Department of Pathology [address] [place] [phone] Name: BRAD HUTCHISON : 1945 Financial [id number] Number: Gender: Male Location: [facility] Admit 76 years Attending MIR RING Age: Provider: Ordering MIR RING Provider: Consulting: Surgical Pathology Report ACCESSION: COLLECTED DATE/TIME: RECEIVED DATE/TIME: PATHOLOGIST: [id number] 06/30/2021 16:30 EST 07/01/2021 12:02 EST FERNANDO HALEY, JEFF ORTA Gross Description PATHOLOGY SERVICES PROVIDED BY [employer], [facility] (CLIA #[id number]) in cooperation with [facility] at [address] [place] [address] (CLIA #[id number]) Codes CPT CODE: 27701 [id number] ____ Print Date07/07/2021 11:14 EST Number: Time: Normal [facility] Comment on above: Performed By: #### 9 [id number], [id number] #### [facility] Laboratory Services [address] [place], [place] [address] Systems Architect: Alexander Yen MD Creatinineon 07-29-2018 Creatinine mass conc 1.36 mg/dL High 0.50-1.30 [facility] Comment on above: Performed By: #### 1 [id number] ####[facility] [id number] [place] [address] GFR/1.73 sq M.predicted MDRD vol rate/area 52 mL/min/{1.73_m2} Normal [facility] Comment on above: Result Comment: Inte rpretation for Chronic Kidney Disease:Stages 1&2 >60 Healthy or potential kidney damage.Mild decrease of GFR.Stage 3 30-59 Moderate decrease of GFR.Stage 4 15-29 Severe decrease of GFR.Stage 5 <15 Kidney failure or on dialysis. Performed By: #### 1 [id number] ####[facility] [id number] [facility] [place] [place] [address] Electrolyte Panelon 07-29-20 18 Anion gap 3 molar conc 11 mmol/L Normal 10-20 [facility] Comment on above: Performed By: #### 1 [id number] ####[facility] [id number] [place] [address] Chloride molar conc 104 mmol/L Normal 98-107 [facility] Comment on above: Performed By: #### 1 [id number] ####[facility] [address] [place] [address] HCO3 molar conc (Bld) 30 mmol/L Normal 21-32 [facility] Comment on above: Performed By: #### 1 [id number] ####[facility] [address] [place] [address] Potassium molar conc 3.6 mmol/L Normal 3.5-5.1 [facility] Comment on above: Performed By: #### 1 [id number] ####[facility] [address] [facility] [place] [place] [address] Sodium molar conc 141 mmol/L Normal 136-145 [facility] Comment on above: Performed By: #### 1 [id number] ####[facility] [address] [place] [address] Urea Nitrogenon 07-29-2018 Urea nitrogen mass conc 20 mg/dL Normal 6-23 [facility] Comment on above: Performed By: #### 1 [id number] ####[facility] [address] [place] [address] Vital Signs Date Time Vital Sign Value Performing Clinician Javier williamson 03-19-2023 10:23-0400 Blood Pressure Location Mir ELISA [facility] 03-19-2023 10:23-0400 Diastolic blood pressure 70 mm[Hg] Mir RING [facility] 03-19-2023 10:23-0400 Heart rate 68 /min Mir RING [facility] 03-19-2023 10:23-0400 Respiratory rate 16 /min Mir RING [facility] 03-19-2023 10:23-0400 Systolic blood pressure 106 mm[Hg] Mir RING [facility] 11-17-2022 10:30-0400 Blood Pressure Location Mir RING [facility] 11-17-2022 10:30-0400 Diastolic blood pressure 87 mm[Hg] Mir RING [facility] 11-17-2022 10:30-0400 Heart rate 68 /min Mir RING [facility] 11-17-2022 10:30-0400 Respiratory rate 16 /min Mir RING [facility] 11-17-2022 10:30-0400 Systolic blood pressure 128 mm[Hg] Mir RING [facility] 11-14-2021 10:55-0400 Blood Pressure Location Mir RING [facility] 11-14-2021 10:55-0400 Diastolic blood pressure 80 mm[Hg] Mir RING [facility] 11-14-2021 10:55-0400 Heart rate 68 /min [facility] 11-14-2021 10:55-0400 Respiratory rate 16 /min Mir RING [facility] 11-14-2021 10:55-0400 Systolic blood pressure 138 mm[Hg] [facility] En[facility]ters Encounter Date Encounter Type Care Provider Facility Start: 03-21-2024 ambulatory Mir Levyi [facility] Start: 03-19-2023 End: 03-20-2023 ambulatory Mir RING Facility: [facility] Start: 03-19-2023 End: 03-19-2023 Patient encounter procedure Mireduardo RING [facility] Start: 11-17-2022 End: 11-18-2022 ambulatory Mir RING Facility:[facility] Start: 11-17-2022 End: 11-17-2022 Patient encounter procedure Mir RING [facility] Start: 10-27-2022 End: 10-27-[address] DOCTOR JENKINS Facility:[facility] Start: 07-03-2022 End: 07-03-2022 ambulatory JJ DACOSTA Facility:[facility] Start: 11-14-2021 End: 11-14-2021 Patient encounter procedure Mir RING [facility] Start: 08-06-2018 Patient encounter procedure MOURANAND HERNÁNDEZ Facility:[id number] Start: 08-06-2018 Patient encounter procedure Facility:[id number] Start: 07-29-2018 Patient encounter procedure ARCHIE HERNÁNDEZ Facility:[id number] Procedures Date Procedure Procedure Detail Performing Clinician Start: 06-30-2021 Revision of transure thral prostatectomy Mir RING Start: 01-29-2018 Transurethral prostatectomy Mir RING Start: 12-25-2017 Urodynamic studies Ernestinar alejandro RING Immunizations Immunization Date Immunization Notes Care Provider Fa cilinancie 05-30-2022 SARS-CoV-2 (COVID-19 ) [id number] Mir RING [facility] 02-15-2022 SARS-CoV-2 mRNA (knmvviydldc-wuay-luymld e) vaccine Mir RING [facility] 08-01-2021 tetanus toxoid, redu dontae diphtheria toxoid, and acellular pertussis vaccine, adsorbed Mir RING [facility] 07-01-2021 SARS-CoV-2 (COVID-19 ) mRNA BNT-162b2 vax Mir RING [facility] 06-02-2021 influenza virus vacc ine, unspecified formulation Mir RING [facility] 04-23-2021 pneumococcal polysaccharide vaccine, 23 valent Mir RING [facility] 04-20-2021 influenza virus vacc ine, unspecified formulation Mir RNIG [facility] 09-22-2020 SARS-CoV-2 (COVID-19 ) mRNA BNT-162b2 vax Mir LiquidText [facility] Comment on above: Result Comment: 2022: [id number] 09-01-2020 SARS-CoV-2 (COVID-19 ) mRNA BNT-162b2 vax [place] [facility] Comment on above: Result Comment: 2022: [id number] 06-01-2020 influenza virus vacc ine, unspecified formulation [place] [facility] 06-17-2019 influenza virus vacc ine, unspecified formulation [place] [facility] 06-17-2018 influenza virus vacc ine, unspecified formulation [place] [facility] 06-11-2017 influenza virus vacc ine, unspecified formulation [place] [facility] 07-10-2014 influenza virus vacc ine, unspecified formulation [place] [facility] Payers Date Payer Category Payer Medicaid [id number] 1957 Medicare [id number] 1945 Unknown [id number] 2.16. [id number] 1945 Unknown [id number] 2.16.8 [id number] 1945 Unknown [id number] 2.16.8 [id number] 1945 Unknown [id number] 2.16.84 [id number] 1945 Unknown [id number] 2.16.84 [id number] 1945 Unknown [id number] 2.16.8 [id number] 1945 Unknown [id number] 2.16.8 [id number] 1945 Unknown [id number] 2.16.8 [id number] Medicare [id number] Self-pay Self Pay [id number] Social History Date Type Detail Facility Tobacco smoking stat [facility] Unknown if ever smoked [facility] Start: 1945 Sex Assigned At Male F [facility] Start: 05-20-2021 End: 11-17-2022 Tobacco smoking status Never smoked tobacco (finding) [facility] Sex Assigned At Male [facility] Tobacco smoking status Never [facility] Goals Date Patient Goal Desired Activity /State Functional Status Date Assessment Result Facility 03-19-2023 Functional Status N/A [facility] 11-17-2022 Functional Status N/A [facility] Discharge instructions 03-19-2023 Note Date [...] urethra. Follow these instructions at home: Take ujmc-wyc-ylulalb and prescription medicines only as told by [...] provider. Document Revised: 02/22/2022 Document Reviewed: 02/22/2022 [employer] Patient Education 2022 [employer]. Follow Up Care 11/17/2022 11:43:25 With:ELISA HALEY, Mir Bender, URL Address: [facility] [address] , [place] [address] [phone] When: Unknown Comments:1 year [facility] Discharge instructions 11-17-2022 Note Date [...] nerve stimulation). For women, using a medical screener to prevent urine leaks. This is a [...] right after experiencing incontinence. General instructions Take ashc-dce-jjrvbmj and prescription medicines only as told by [...] 09/13/2005 Document Revised: 08/16/2018 Document Reviewed: 11/15/2017 [employer] Patient Education 2020 [employer]. Follow Up Care 11/14/2021 11:50:03 With:ELISA HALEY, Mir Bender, URL Address: [address] [place] [phone] When: Unknown [facility] Hospital Discharge instructions 11-14-2021 Note Date [...] 08/06/2006 Document Revised: 04/25/2019 Document Reviewed: 07/06/2017 [employer] Patient Education 2020 [employer]. 11/14/2021 11:43:28 Overactive Bladder, Adult Overactive Bladder, [...] fried and sweet foods. General instructions Take aacz-lgc-sdfbfss and prescription medicines only as told by [...] 06/02/2010 Document Revised: 11/27/2019 Document Reviewed: 08/22/2018 [employer] Patient Education 2020 [employer]. 11/14/2021 11:43:25 Benign Prostatic Hyperplasia Benign Prostatic [...] urethra. Follow these instructions at home: Take ulen-gjk-bslpxap and prescription medicines only as told by [...] 08/06/2006 Document Revised: 07/01/2019 Document Reviewed: 09/10/2017 [employer] Patient Education 2020 [employer]. Follow Up Care 08/01/2021 12:20:44 With:ELISA HALEY, Mir Bender, URL Address: [facility] [address], [place] [address]- [phone] When:11/14/2022 Comments:1 year fu [facility] Evaluation + Plan note Note Date & Type Note Facility Evaluation + Plan note Future Appointments Appointment Date:11/17/2022 10:15:00 AM Scheduled Provider:Mir RING MD Location:[facility] Appointment Type:URO Office Visit [facility] [place] Evaluation + Plan note Note Date & Type Note Facility Evaluation + Plan note Future Appointments Appointment Date:03/19/2023 10:15:00 AM Scheduled Provider:Mir RING MD Location:[facility] Appointment Type:URO Office Visit [facility] Evaluation + Plan note Note Date & Type Note Facility Evaluation + Plan note Future Appointments Appointment Date:03/21/2024 09:30:00 AM Scheduled Provider:Mir RING MD Location:[facility] Appointment Type:URO Office Visit [facility] [place] Hospital course Narrative Note Date & Type Note Facility Hospital course Narrative No data available for this section [facility] [place] Progress note Note Date & Type Note Facility Progress note No data available for this section [facility] [place] Summary Purpose Family History No Family History [...] section and content) DATE CREATED AUTHOR 08/10/2018 [facility] DATE CREATED AUTHOR AUTHOR'S ORGANIZ ATION 08/12/2018 [facility] DATE CREATED AUTHOR AUTHOR'S ORGANIZ ATION 08/27/[address] [facility] DATE CREATED AUTHOR AUTHOR'S ORGANIZ ATION 09/20/2021 [facility] DATE CREATED AUTHOR AUTHOR'S ORGANIZ ATION 10/31/2022 [facility] DATE CREATED AUTHOR AUTHOR'S ORGANIZ ATION 03/20/2023 [facility] FOR RECORDS PERTAINING TO PATIENTS [...] BE BASED ON THE PRIMARY CLINICAL RECORDS. [employer] provides no warranty or guarantee of the accuracy or completeness of information in this document.
[2023-11-12 08:59] LABS: Basophils Absolute Auto 0.1 10^3/uL (0.0-0.1); Basophils Percent Auto 0.9 % (0.2-2.0); Eosinophils Absolute Auto 0.1 10^3/uL (0.0-0.7); Eosinophils Percent Auto 1.7 % (0.9-7.0); Hematocrit 34.8 % (42.0-54.0); Hemoglobin 11.4 g/dL (14.0-18.0); Immature Granulocytes Abs Auto 0.01 10^3/uL (0.00-0.03); Immature Granulocytes Pct Auto 0.2 % (0.0-0.5); Lymphocytes Absolute Auto 1.3 10^3/uL (1.2-3.8); Lymphocytes Percent Auto 24.8 % (20.5-60.0); Mean Corpuscular HGB Conc 32.8 g/dL (29.9-35.2); Mean Corpuscular Hemoglobin 32.8 pg (25.9-34.0); Mean Platelet Volume 9.9 fL (9.5-13.5); Monocytes Absolute Auto 0.5 10^3/uL (0.3-0.8); Monocytes Percent Auto 8.9 % (1.7-12.0); Neutrophils Absolute Auto 3.4 10^3/uL (1.4-6.5); Neutrophils Percent Auto 63.5 % (43.0-75.0); Platelet Count 168 10^3/uL (150-450); Red Blood Count 3.48 10^6/uL (4.70-6.10); Red Cell Distribution Width 14.2 % (11.0-15.0); White Blood Count 5.4 10^3/uL (4.0-11.0)
[2023-11-12 09:03] LABS: Anion Gap 12.6; BUN Creatinine Ratio 16.1; Calcium 8.2 mg/dL (8.5-10.1); Carbon Dioxide 28.1 mmol/L (21.0-32.0); Chloride 106 mmol/L (98-107); Estimated GFR (African America 58 (>=60); Estimated GFR (Non-African Ame 48 (>=60); Glucose 105 mg/dL (74-106); Potassium 3.7 mmol/L (3.5-5.1); Sodium 143 mmol/L (136-145)
[2023-11-12 09:04] LABS: Bilirubin Urine NEGATIVE (NEGATIVE); Blood Urine NEGATIVE (NEGATIVE); Clarity Urine CLEAR (CLEAR); Color Urine YELLOW (YELLOW); Glucose Urine UA NEGATIVE (NEGATIVE); Ketones Urine NEGATIVE (NEGATIVE); Leukocyte Esterase Urine NEGATIVE (NEGATIVE); Nitrite Urine NEGATIVE (NEGATIVE); Protein Urine TRACE mg/dL (NEG/TRACE); Specific Gravity Urine 1.015 (1.005-1.025); Urobilinogen Urine 0.2 EU/dL (0.2-1.0)
[2023-11-12 09:08] LABS: Urine Microscopic Indicated NO
== END 2023-11-12 02:01 | disposition home or self-care (01) ==
LOC: LAB 02:00
PROVIDERS: PCP Family Medicine; Visit Provider Nurse Practitioner Family
DX: I63.9 Cerebral infarction, unspecified (principal); I10 Essential (primary) hypertension; N40.1 Benign prostatic hyperplasia with lower urinary tract symptoms; N18.9 Chronic kidney disease, unspecified
CPT/HCPCS: 36415; 80048; 81003; 85025

== ENCOUNTER 2024-03-12 07:48 | Outpatient (REF) | payer MEDICARE, MEDICAID, SELFPAY ==
--- OUTSIDE RECORDS SUMMARY | 2024-03-12 07:58 | XMS_ITS | CCD ---
Author Organization [facility] Inform ion Partnership [facility] Care Team Providers Care Sports Cartoonist Name Role Phone ARCHIE HERNÁNDEZ Unavailable Unavailable CARLOS ALCANTAR Unavailable Unavailable ARCHIE HERNÁNDEZ Unavailable Unavailable CARLOS ALCANTAR Unavailable Unavailable NONE, XXXX Primary Care Physician Unavailab JJ Boyer Admitting Unavailable JJ DACOSTA Attending Unavailable ORTIZ, DR GONZALEZ Primary Care Unavailable JJ DACOSTA Consulting Unavailable [facility] CORBIN Admitting Unavailable [facility] CORBIN Attending Unavailable ORTIZ, DR GONZALEZ Primary Care Unavailable [facility] CORBIN Consulting Unavailable Mir RING Attending Unavailable Mir RING Attending Unavailable Mir RING Attending Unavailable Unavailable Unavailable Unavailable Allergies Allergy Classification Reported Allergen(s) Allergy Type Date of Onset Reaction(s) Facility (1 source) No Known Medication Allergies; Translations: [No Known Medication Allergies] Propensity to adverse reactions (disorder) [facility] Repository Medications Current Medications Medication Drug [...] Start: 08-15-2019 take 10 mg rectal ro [place] once daily Bisacodyl Active 10 MG Rectal [...] 0 Start Date: 05/20/21 Status: Ordered sennosides, long-term 8.6 mg oral tablet (4 sources) Start: 05-20-2021 take 1 mg by mouth once daily at bedtime senna 8.6 mg Tab mg tab(s), Oral, Once a day (at bedtime), Refills(s) 0 Start Date: 05/20/21 Status: Ordered Start: 08-15-2019 take 2 tablets by [facility] once daily Sennosides Active 2 TAB [...] Essential hypertension (2 sources) Essential hypertension Onset: Fluid and electrolyte disorders (2 sources) Acute hypokalemia; Translations: [Diuretic-induced hypokalemia] Episodic Genitourinary symptoms and ill-defined conditions (10 sources) Incontinence without sensory awareness; 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] Onset: Chronic Genitourinary symptoms and ill-defined conditions (4 [...] Test Name Value Interpretation Reference Range Facility Residential Recordson 03-20 Residential Records [id number] D:127 Normal [facility] Ambulatory Visit Summaryon 0 03-19-2023 Ambulatory Visit Summary BRAD HUTCHISON :1945 Visit Date:03/19/2023 Ambulatory Visit Instructions Your [...] 1 year Where: [facility] [address] , [place] [address]- [phone] Medications What How Much When Instructions Unchanged [...] prescribing physician (more content not included)... Normal [facility] Patient Educationon 03-19-20 23 Patient Education [...] Follow these instructions at home: ? Take kolm-pyy-qoowgek and prescription medicines only as told by [...] the medicine (more content not included)... Normal [facility] Urology Office/Clinic Noteon 03-19-2023 Urology Office/Clinic [...] makes it to the restroom. Spoke to [facility] staff ([facility] nurse stated patient is always incontinent and rarely ever voids on his own. Follow-up With When Contact Information ELISA HALEY, Mir Bender, URL [facility] [address] [place] [phone] Additional Instructions: 1 year Patient Education Benign [...] Use:., 03 (more content not included)... Normal [facility] Comment on above: Result Comment: Elec [...] with Mir RING MD, URL When: Where: [address] [place] [address]- Medications What How Much When Instructions Unchanged [...] this condit (more content not included)... Normal [facility] Residential Recordson 11-17 Residential Records [id number] D:127 Normal [facility] Patient Educationon 11-18-19 Patient Education Urology [...] stimulation). ? For women, using a medical geneticist to prevent urine leaks. This is a [...] after experiencing incontinence. General instructions ? Take ehle-lpg-cltplqg and prescription medicines only as (more content not included)... Normal [facility] Urology Office/Clinic Noteon 11-17-2022 Urology Office/Clinic Note Chief Complaint 1yr follow up HPI Staff 1yr to BPH Incontinence w/o sensory awareness & Frequency. *Flomax therapy was DC'd at time of last encounter Pt states he does wear a brief. Denies incontinence/leaking. Did call Residential, Spoke to pt's nurse, stated pt is [...] urge to void when sleeping. Spoke to [facility] staff ([facility] nurse stated patient is always incontinent and rarely ever voids on his own. Follow-up With When Contact Information ELISA HALEY, Mir Bender, URL [address] [place] [address]- Additional Instructions: 4 months to starting new [...] losartan 1 (more content not included)... Normal [facility] Comment on above: Result Comment: Elec tronically Signed By: Mir RING MD\.br\Date and Time Signed: 11/17/22 11:36 EDT\.br\Electronically Co-Signed By: Sera Calhoun.br\Date and Time Co-Signed: 11/17/22 11:34 EDT URIC ACID SERUMon 10-27-2022 Urate [Mass/Vol] 4.2 mg/dL Normal 3.5-7.2 [facility] Comment on above: Performed By: #### U VICTOR HUGO #### [facility] [address] [place], [place] [address] Dr. Neymar Guy URIC ACID SERUMon 07-03-2022 Urate [Mass/Vol] 4.3 mg/dL Normal 3.5-7.2 [facility] Comment on above: Performed By: #### U VICTOR HUGO #### [facility] [address] [place] [id number] Neymar Guy Addendum Reporton 08-26-2021 Addendum Report [facility] Department of Pathology [address] [place] [phone] Name: BRAD HUTCHISON : 1945 Financial [id number] Number: Gender: Male Location: [facility] Admit 76 years Attending MIR RING Age: Provider: Ordering MIR RING Provider: Consulting: Surgical Pathology Report ACCESSION: COLLECTED DATE/TIME: RECEIVED DATE/TIME: PATHOLOGIST: [id number] 06/30/2021 16:30 EST 07/01/2021 12:02 MARTINEZ KING MD, JEFF GLASS Surgical Path Addendum Report A PIN4 immunostain was used in evaluation of this specimen and is negative. 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 - NEGATIVE FOR MALIGNANCY. JEFF KING PATHOLOGIST (Electronic Signature) Date Verified 07/07/2021 CL Clinical Data PRE-OP DIAGNOSIS: Not specified POST-OP DIAGNOSIS: Enlarged prostate with lower urinary tract symptoms PROCEDURES: Cystoscopy, TURP SPECIMEN: Prostate tissue / Ambulatory Surgery ____ Print Date08/26/2021 15:01 EST Number: Time: [facility] Department of Pathology [address] [place] [phone] Name: BRAD HUTCHISON : 1945 Financial [id number] Number: Gender: Male Location: [facility] Admit 76 years Attending MIR RING Age: Provider: Ordering MIR RING Provider: Consulting: Surgical Pathology Report ACCESSION: COLLECTED DATE/TIME: RECEIVED DATE/TIME: PATHOLOGIST: [id number] 06/30/2021 16:30 EST 07/01/2021 12:02 EST FERNANDO HALEY, JEFF ORTA Gross Description Labeled prostate tissue. Received in formalin are fragments of firm du soft tissue measuring 2.0 x 1.0 x 0.6 cm in aggregate. The specimen is entirely submitted in cassette A1- A2. /elliot 07/01/2021 Tissue pathology report for: [facility], [address] [place] [address]; [facility] (CLIA #[id number]) in cooperation with [facility] at [address] [place] [address] (CLIA #[id number]) Codes CPT CODE: 11680 [id number] ____ Print Date08/26/2021 15:01 EST Number: Time: [facility] Comment on above: Performed By: #### 9 [id number], [id number] #### [facility] Laboratory Services [address] [place], [place] [id number] Coffee Weigher: Alexander Yen MD COVID-19 [facility] 08-02-2021 SARS-CoV-2 (COVID-19) RNA PERRY+probe Ql (Unsp spec) Negative Normal Negative [facility] Comment on above: Order Comment: Healt hcare Worker?: N Result Comment: Testing for SARS-CoV-2 by RT-PCR This test was developed and its performance characteristics determined by [employer] and validated at the [facility]. This test has not been FDA [...] is terminated or revoked sooner. PERFORMED BY: [place] [address] PATHOLOGIST CAR MANAGER GERI MANZANO M.D. Performed By: #### A MM, BMP, HS TROP, CBC #### [address] ECG 12 lead ECGon 08-02-2021 ECG 12 lead ECG [facility] [address] Electrocardiograph Report Signed Patient: Brad Hutchison MR#: [id number] : 1945 Acct:[id number] Age/Sex: 76 / M ADM Date: 08/01/21 Loc: 4 Room: [address] [place] [address] Type: ADM INOo Attending Dr: Lynn Rivas [...] By: MUS Signed By Ivan Baldwin MD [address] [facility] echo transthoracicon [facility] echo transthoracic [facility] [address] Echocardiogram Signed Patient: Brad Hutchison MR#: [id number] : 1945 Acct:[id number] Age/Sex: 76 / M ADM Date: 08/01/21 Loc: Room: [address] [place] [address] Type: ADM INOo Attending Dr: Lynn Rivas MD Ordering Provider: Lynn Rivas MD Date of Service: 08/01/21 [facility] echo transthoracic: syncope Copies to: Rosanne Chaparro MD, [facility] Lynn Rivas MD Height: 69.5 in Weight: [...] ROSIE 08/02/211200 Dictated By: Rosanne Chaparro MD, [facility] 08/02/21 0833 Signed By: 08/02/211200 [facility] Ammoniaon 08-01-2021 Ammonia (P) [Moles/Vol] 12 umol/L Normal 11-35 [facility] Comment on above: Result Comment: PERF ORMED BY: [place] [address] PATHOLOGIST CAR MANAGER GERI MANZANO M.D. Performed By: #### A MM, BMP, HS TROP, CBC #### [facility] [address] [place] [address] Basic Metabolic Panelon 07-20 Calcium [Mass/Vol] 8.3 mg/dL Normal 8.2-10.2 [facility] [place] [facility] Comment on above: Performed By: #### A MM, BMP, HS TROP, CBC #### [address] Chloride [Moles/Vol] 101 mmol/L Normal 95-114 [facility] Comment on above: Performed By: #### A MM, BMP, HS TROP, CBC #### [facility] [address] [place] [address] CO2 [Moles/Vol] 21.4 mmol/L Low 22.0-30.0 [facility] Comment on above: Performed By: #### A MM, BMP, HS TROP, CBC #### [address] Creatinine [Mass/Vol] 2.15 mg/dL High 0.64-1.27 [facility] Comment on above: Performed By: #### A MM, BMP, HS TROP, CBC #### [facility] [address] [place] [address] [place] Creatinine Clr Calc Pharmacy 31.12 [facility] Comment on above: Result Comment: PERF ORMED BY: [place] [address] PATHOLOGIST CAR MANAGER GERI MANZANO M.D. Performed By: #### A MM, BMP, HS TROP, CBC #### [facility] [address] [place] [address] [place] Estimated GFR ( Ruthy 37 Normal [facility] Comment on above: Result Comment: GFR estimated reference range: According to KDOQI guidelines, <60 ml/min/1.73m2 is sufficient to diagnose a patient with chronic kidney disease. Performed By: #### A MM, BMP, HS TROP, CBC #### [facility] [address] Estimated GFR (Non- Am 30 Normal [facility] Comment on above: Performed By: #### A MM, BMP, HS TROP, CBC #### [facility] [address] Glucose [Mass/Vol] 126 mg/dL High 70-100 [facility] [place] [facility] Comment on above: Result Comment: [place] Glucose Reference Range is dependent on time and content of last meal. Glucose of more than 200 mg/dL in a nonstressed, ambulatory subject supports the diagnosis of Diabetes Mellitus. ADA recommended reference range Performed By: #### A MM, BMP, HS TROP, CBC #### [facility] [address] [place] [address] Potassium [Moles/Vol] 3.9 mmol/L Normal 3.5-5.1 [facility] Comment on above: Performed By: #### A MM, BMP, HS TROP, CBC #### [facility] [address] [place] [address] Sodium [Moles/Vol] 133 mmol/L Low 136-146 [facility] [place] [facility] Comment on above: Performed By: #### A MM, BMP, HS TROP, CBC #### [facility] [address] [place] [address] Urea nitrogen [Mass/Vol] 34 mg/dL High 9-23 [facility] Comment on above: Performed By: #### A MM, BMP, HS TROP, CBC #### [facility] [address] [place] [address] COVID-19 Antigenon 1 COVID-19 Antigen Healthcare Worker?: [...] its performance Sarah Disclaimer characteristic determined by [employer] and Sarah Disclaimer validated at [facility]. This Sarah Disclaimer test has not [...] is terminated or revoked sooner. PERFORMED BY: [place] [address] PATHOLOGIST CAR MANAGER GERI MANZANO M.D. [facility] Comment on above: Performed By: #### S TUYET COVID-19 SARAH #### [address] cervical spine wo conon 1 10-02-2020 CT cervical spine wo [facility] [place] [address] [place] [address] CT Scan Report Signed Patient: Brad Hutchison MR#: [id number] : 1945 Acct:[id number] Age/Sex: 76 / M ADM Date: 08/01/21 Loc: ER Room: Type: [facility] ER Attending Dr: Ordering Provider: [...] Champ Rae M.D.08/01/2021 3:59 PM Dictation Location: [place] [address] Transcribed By: [facility] 08/01/211558 Dictated By: Champ Rae DO 08/01/211550 Signed By: 08/01/21 155 [address] [facility] CT head/brain wo conon 08-01 CT head/brain wo con [facility] [address] CT Scan Report Signed Patient: Brad Hutchison MR#: [id number] : 1945 Acct:[id number] Age/Sex: 76 / M ADM Date: 08/01/21 Loc: ER Room: Type: [facility] ER Attending Dr: Ordering Provider: [...] Champ Rae M.D.08/01/2021 3:51 PM Dictation Location: [place] [address] Transcribed By: [facility] 08/01/21 1551 Dictated By: Champ Rae DO 08/01/21 1547 Signed By: 08/01/21 1551 Normal [facility] Complete Blood Count Auto Di ffon 08-01-2021 Basophils (Bld) [#/Vol] 0.1 10*3/uL Normal 0.0-0.2 [facility] Comment on above: Result Comment: PERF ORMED BY: [place] [address] PATHOLOGIST CAR MANAGER GERI MANZANO M.D. Performed By: #### A MM, BMP, HS TROP, CBC #### [facility] [address] [place] [address] [place] Basophils/100 WBC (Bld) 1.3 % Normal . [facility] Comment on above: Performed By: #### A MM, BMP, HS TROP, CBC #### [facility] [address] [place] [address] [place] Eosinophils (Bld) [#/Vol] 0.3 10*3/uL Normal 0.0-0.45 [facility] Comment on above: Performed By: #### A MM, BMP, HS TROP, CBC #### [facility] [address] [place] [address] [place] Eosinophils/100 WBC (Bld) 3.4 % Normal . [facility] Comment on above: Performed By: #### A MM, BMP, HS TROP, CBC #### [facility] [address] [place] [address] [place] Erythrocyte distribution width (RBC) [Ratio] 13.1 % Normal 12.0-14.8 [facility] Comment on above: Performed By: #### A MM, BMP, HS TROP, CBC #### [address] Hematocrit (Bld) [Volume fraction] 35.7 % Low 38.8-50.0 [facility] Comment on above: Performed By: #### A MM, BMP, HS TROP, CBC #### [address] Hemoglobin (Bld) [Mass/Vol] 12.0 g/dL Low 13.0-17.0 [facility] Comment on above: Performed By: #### A MM, BMP, HS TROP, CBC #### [address] Lymphocytes (Bld) [#/Vol] 1.8 10*3/uL Normal 1.00-4.8 [facility] Comment on above: Performed By: #### A MM, BMP, HS TROP, CBC #### [address] Lymphocytes/100 WBC (Bld) 22.9 % Normal . [facility] Comment on above: Performed By: #### A MM, BMP, HS TROP, CBC #### [address] MCH (RBC) [Entitic mass] 33.9 pg Normal 27.5-35.2 [facility] Comment on above: Performed By: #### A MM, BMP, HS TROP, CBC #### [address] MCV (RBC) [Entitic vol] 100.5 fL Normal 83.5-101 [facility] Comment on above: Performed By: #### A MM, BMP, HS TROP, CBC #### [address] Mean Corpuscular HGB Conc 33.7 g/dL Normal 32.5-35.6 [facility] Comment on above: Performed By: #### A MM, BMP, HS TROP, CBC #### [address] Monocytes (Bld) [#/Vol] 0.6 10*3/uL Normal 0.0-0.8 [facility] Comment on above: Performed By: #### A MM, BMP, HS TROP, CBC #### [facility] [address] [place] [address] [place] Monocytes/100 WBC (Bld) 7.5 % Normal . [facility] Comment on above: Performed By: #### A MM, BMP, HS TROP, CBC #### [facility] [address] Neutrophils (Bld) [#/Vol] 5.0 10*3/uL Normal 1.8-7.7 [facility] Comment on above: Performed By: #### A MM, BMP, HS TROP, CBC #### [facility] [address] Neutrophils/100 WBC (Bld) 64.9 % Normal . [facility] Comment on above: Performed By: #### A MM, BMP, HS TROP, CBC #### [facility] [address] [place] [address] [place] Nucleated RBC/100 WBC (Bld) [Ratio] 0.1 % Normal 0-0.5 [facility] Comment on above: Performed By: #### A MM, BMP, HS TROP, CBC #### [facility] [address] [place] [address] [place] Platelet mean volume (Bld) [Entitic vol] 9.2 fL Normal 6.6-10.1 [facility] Comment on above: Performed By: #### A MM, BMP, HS TROP, CBC #### [facility] [address] [place] [address] [place] Platelets (Bld) [#/Vol] 145 10*3/uL Low 150-450 [facility] Comment on above: Performed By: #### A MM, BMP, HS TROP, CBC #### [facility] [address] [place] [address] [place] RBC (Bld) [#/Vol] 3.55 10*6/uL Low 3.90-5.60 [facility] Comment on above: Performed By: #### A MM, BMP, HS TROP, CBC #### [facility] [address] WBC (Bld) [#/Vol] 7.6 10*3/uL Normal 4.5-11.0 [facility] [place] [facility] Comment on above: Performed By: #### A MM, BMP, HS TROP, CBC #### [facility] [address] [place] [address] ECG 12 lead ECGon 08-01-2021 ECG 12 lead ECG [facility] [address] Electrocardiograph Report Signed Patient: Brad Hutchison MR#: [id number] : 1945 Acct:[id number] Age/Sex: 76 / M ADM Date: 08/01/21 Loc: Room: [address] [place] [address] Type: ADM IN Attending Dr: Lynn Rivas [...] Prolonged QT Confirmed by Porfirio Pryor DO ([id number]) on 08/01/2021 8:58:49 PM Referred By: Electronically Signed By:Porfirio Pryor DO Transcribed By: MUS Signed By Porfirio Pryor DO 2057 Normal [facility] ECG 12 lead ECG [facility] [address] Electrocardiograph Report Signed Patient: Brad Hutchison MR#: [id number] : 1945 Acct:[id number] Age/Sex: 76 / M ADM Date: 08/01/21 Loc: Room: [address] [place] [address] Type: ADM IN Attending Dr: Lynn Rivas [...] baseline artifact Confirmed by Porfirio Pryor DO ([id number]) on 08/01/2021 8:58:16 PM Referred By: Electronically Signed By:Porfirio Pryor DO Transcribed By: MUS Signed By Porfirio Pryor DO 2057 [facility] Ethyl Alcohol Profileon 07-20 Ethanol [Mass/Vol] 38 mg/dL Normal [facility] [place] [facility] Comment on above: Performed By: #### E BRAYDEN #### [address] Percent Ethanol 0.038 % [facility] Comment on above: Result Comment: PERF ORMED BY: [place] [address] PATHOLOGIST CAR MANAGER GERI MANZANO M.D. Performed By: #### E BRAYDEN #### [facility] [address] [place] [address] Sarah Ag Negativeon 08-01-20 21 Sarah Ag Negative Negative Normal Negative [facility] Comment on above: Result Comment: This is a duplicate Sarah SARS Antigen (KINDRA) result to be used for statistical tracking purpose only. PERFORMED BY: [place] [phone] PATHOLOGIST CAR MANAGER GERI MANZANO M.D. Performed By: #### S TUYET COVID-19 SARAH #### [facility] [address] [place] [address] Troponin I High Sensitivityo n 08-01-2021 Troponin I High Sensitivity 12 pg/mL Normal 0-20 [facility] Comment on above: Result Comment: PERF ORMED BY: [place] [address] PATHOLOGIST CAR MANAGER GERI MANZANO M.D. Performed By: #### A MM, BMP, HS TROP, CBC #### [facility] [address] [place] [address] [place] Troponin I High Sensitivity 12 pg/mL Normal 0-20 [facility] Comment on above: Result Comment: PERF ORMED BY: [place] [address] PATHOLOGIST CAR MANAGER GERI MANZANO M.D. Performed By: #### A MM, BMP, HS TROP, CBC #### [facility] [address] [place] [address] [facility] XR chest 1V portableon 08-01 XR chest 1V portable [facility] [place] [address] [place] [address] XRay Report Signed Patient: Brad Hutchison MR#: [id number] : 1945 Acct:[id number] Age/Sex: 76 / M ADM Date: 08/01/21 Loc: ER Room: Type: [facility] ER Attending Dr: Ordering Provider: [...] Champ Rae M.D.08/01/2021 3:35 PM Dictation Location: [place] [address] Transcribed By: [facility] 08/01/21 5195 Dictated By: Champ Rae DO 08/01/21 1533 Signed By: 08/01/21 1535 [facility] SURGICAL PATH REPORTon 07-07 SURGICAL PATH REPORT [facility] Department of Pathology [address] [place] [phone] Name: BRAD HUTCHISON : 1945 Financial [id number] Number: Gender: Male Location: [facility] Admit 76 years Attending MIR RING Age: Provider: Ordering MIR RING Provider: Consulting: Surgical Pathology Report ACCESSION: COLLECTED DATE/TIME: RECEIVED DATE/TIME: PATHOLOGIST: [id number] 06/30/2021 16:30 EST 07/01/2021 12:02 EST FERNANDO HALEY, JEFF ORTA Final Diagnosis Report for [facility] [place], [place] PROSTATE TISSUE, TURP: - BENIGN PROSTATIC [...] GENEVA/elliot 07/01/2021 Tissue pathology report for: [facility], [address] [place] [address]; ____ Print Date/ 07/07/2021 11:14 EST Number: Time: [facility] Department of Pathology [address] [place] [phone] Name: BRAD HUTCHISON : 1945 Financial [id number] Number: Gender: Male Location: [facility] Admit 76 years Attending MIR RING Age: Provider: Ordering MIR RING Provider: Consulting: Surgical Pathology Report ACCESSION: COLLECTED DATE/TIME: RECEIVED DATE/TIME: PATHOLOGIST: [id number] 06/30/2021 16:30 EST 07/01/2021 12:02 EST FERNANDO HALEY, JEFF ORTA Gross Description PATHOLOG[facility] SERVICES [facility] (CLIA #[id number]) in cooperation with [facility] at [address] [place] [address] (CLIA #[id number]) Codes CPT CODE: 42251 [id number] ____ Print Date07/07/2021 11:14 EST Number: Time: Normal [facility] Comment on above: Performed By: #### 9 [id number] #### [facility] Laboratory Services [address] [place], [place] [id number] Coffee Weigher: Alexander Yen MD Creatinineon 07-29-2018 Creatinine mass conc 1.36 mg/dL High 0.50-1.30 [facility] Comment on above: Performed By: #### 1 [id number] ####[facility] [address] [place] [address] GFR/1.73 sq M.predicted MDRD vol rate/area 52 mL/min/{1.73_m2} [facility] Comment on above: Result Comment: Inte rpretation for Chronic Kidney Disease:Stages 1&2 >60 Healthy or potential kidney damage.Mild decrease of GFR.Stage 3 30-59 Moderate decrease of GFR.Stage 4 15-29 Severe decrease of GFR.Stage 5 <15 Kidney failure or on dialysis. Performed By: #### 1 [id number] ####[facility] [facility] [address] [place] [address] Electrolyte Panelon 07-29-20 18 Anion gap 3 molar conc 11 mmol/L Normal 10-20 [facility] Comment on above: Performed By: #### [id number] ####[facility] [address] [place] [address] Chloride molar conc 104 mmol/L Normal 98-107 [facility] Comment on above: Performed By: #### 1 [id number] ####[facility] [address] [place] [address] HCO3 molar conc (Bld) 30 mmol/L Normal 21-32 [facility] Comment on above: Performed By: #### 1 [id number] ####[facility] [address] [place] [address] Potassium molar conc 3.6 mmol/L Normal 3.5-5.1 [facility] Comment on above: Performed By: #### 1 [id number] ####[facility] [address] [place] [address] Sodium molar conc 141 mmol/L Normal 136-145 [facility] Comment on above: Performed By: #### 1 [id number] ####[facility] [address] [place] [address] Urea Nitrogenon 07-29-2018 Urea nitrogen mass conc 20 mg/dL Normal 6-23 [facility] Comment on above: Performed By: #### 1 [id number] ####[facility] [address] [place] [address] Vital Signs Date Time Vital Sign Value Performing Clinician Javier williamson 03-19-2023 10:23-0400 Blood Pressure Location Mir RING [facility] 03-19-2023 10:23-0400 Diastolic blood pressure 70 mm[Hg] Mir RING [facility] 03-19-2023 10:23-0400 Heart rate 68 /min Mir RING [facility] 03-19-2023 10:23-0400 Respiratory rate 16 /min Mir RING [facility] 03-19-2023 10:23-0400 Systolic blood pressure 106 mm[Hg] Mir RING [facility] 11-17-2022 10:30-0400 Blood Pressure Location Mir RING [facility] 11-17-2022 10:30-0400 Diastolic blood pressure 87 mm[Hg] Mir RING [facility] 11-17-2022 10:30-0400 Heart rate 68 /min Mir RING [facility] 11-17-2022 10:30-0400 Respiratory rate 16 /min Mir RING [facility] 11-17-2022 10:30-0400 Systolic blood pressure 128 mm[Hg] Mir RING [facility] 11-14-2021 10:55-0400 Blood Pressure Location Mir RING [facility] 11-14-2021 10:55-0400 Diastolic blood pressure 80 mm[Hg] Mir RING [facility] [place] 11-14-2021 10:55-0400 Heart rate 68 /min Mir RING [facility] [place] 11-14-2021 10:55-0400 Respiratory rate 16 /min [facility]ardo [facility] 11-14-2021 10:55-0400 Systolic blood pressure 138 mm[Hg] [facility] Encounters Encounter Date Encounter Type Care Provider Facility Start: 03-21-2024 ambulatory Mir RING Facili ty:[facility] [place] Start: 03-19-2023 End: 03-20-2023 [facility]ulatory [facility] Start: 03-19-2023 End: 03-19-2023 Patient encounter procedure Mir RING [facility] [place] Start: 11-17-2022 End: 11-18-2022 ambulatory Mir RING Facility:[facility] [place] Start: 11-17-2022 End: 11-17-2022 Patient encounter procedure Mri RING [facility] [place] Start: 10-27-2022 End: 10-27-[address] DOCTOR JENKINS Facility:[facility] Start: 07-03-2022 End: 07-03-2022 ambulatory JJ DACOSTA Facility:[facility] Start: 11-14-2021 End: 11-14-2021 Patient encounter procedure [facility] Start: 08-06-2018 Patient encounter procedure ARCHIE HERNÁNDEZ [...] Provider Fa cilinancie 05-30-2022 SARS-CoV-2 (COVID-19 ) [id number] Mir RING [facility] 02-15-2022 SARS-CoV-2 mRNA (uftljltolwq-zezg-tzbyrn e) vaccine Mir RING [facility] 08-01-2021 tetanus toxoid, redu dontae diphtheria toxoid, and acellular pertussis vaccine, adsorbed Mir RING [facility] 07-01-2021 SARS-CoV-2 (COVID-19 ) mRNA BNT-162b2 vax Mir RING [facility] 06-02-2021 influenza virus vacc ine, unspecified formulation Mir RING [facility] 04-23-2021 pneumococcal polysaccharide vaccine, 23 valent Mir RING [facility] 04-20-2021 influenza virus vacc ine, unspecified formulation Mir RING [facility] 09-22-2020 SARS-CoV-2 (COVID-19 ) mRNA BNT-162b2 vax Mir [employer] [facility] Comment on above: Result Comment: 2022: [id number] 09-01-2020 SARS-CoV-2 (COVID-19 ) mRNA BNT-162b2 vax [employer] [facility] Comment on above: Result Comment: 2022: [id number] 06-01-2020 influenza virus vacc ine, unspecified formulation [employer] [facility] 06-17-2019 influenza virus vacc ine, unspecified formulation [employer] [facility] 06-17-2018 influenza virus vacc ine, unspecified formulation [employer] [facility] 06-11-2017 influenza virus vacc ine, unspecified formulation [employer] [facility] 07-10-2014 influenza virus vacc ine, unspecified formulation [employer] [facility] Payers Date Payer Category Payer Medicaid [id number] 1957 Medicare [id number] 1945 Unknown [id number] 2.16. [id number] 1945 Unknown [id number] 2.16.8 [id number] 1945 Unknown [id number] 2.16.8 [id number] 1945 Unknown [id number] 2.16.84 [id number] 1945 Unknown [id number] 2.16.84 [id number] 1945 Unknown [id number] 2.16.8 [id number] 1945 Unknown [id number] 2.16.8 [id number] 1945 Unknown [id number] 2.16.8 [id number] Medicare [id number] Self-pay Self Pay [id number] Social History Date Type Detail Facility Tobacco smoking stat [facility] Unknown if ever smoked [facility] Start: 1945 Sex Assigned At Male [facility] Start: 05-20-2021 End: 11-17-2022 Tobacco smoking status Never smoked tobacco (finding) [facility] Sex Assigned At Male [facility] Tobacco smoking status Never [facility] Goals Date Patient Goal Desired Activity /State Functional Status Date Assessment Result Facility 03-19-2023 Functional Status N/A [facility] 11-17-2022 Functional Status N/A [facility] Discharge instructions 03-19-2023 Note Date & [...] urethra. Follow these instructions at home: Take wgjq-wvf-ihqeqhq and prescription medicines only as told by [...] provider. Document Revised: 02/22/2022 Document Reviewed: 02/22/2022 [employer] Patient Education 2022 [employer]. Follow Up Care 11/17/2022 11:43:25 With:ELISA HALEY, Mir Bender, URL Address: [facility] [address] , [place] [address]- [phone] When: Unknown Comments:1 year [facility] Discharge instructions 11-17-2022 Note Date [...] nerve stimulation). For women, using a medical geneticist to prevent urine leaks. This is a [...] right after experiencing incontinence. General instructions Take ubez-jxo-aydrwvg and prescription medicines only as told by [...] 09/13/2005 Document Revised: 08/16/2018 Document Reviewed: 11/15/2017 [employer] Patient Education 2020 [employer]. Follow Up Care 11/14/2021 11:50:03 With:ELISA HALEY, Mir Bender, URL Address: [address] [place] [address]- When: Unknown [facility] Discharge instructions 11-14-2021 Note Date & [...] 08/06/2006 Document Revised: 04/25/2019 Document Reviewed: 07/06/2017 [employer] Patient Education 2020 [employer]. 11/14/2021 11:43:28 Overactive Bladder, Adult Overactive Bladder, [...] fried and sweet foods. General instructions Take gpsj-spo-orzudbx and prescription medicines only as told by [...] 06/02/2010 Document Revised: 11/27/2019 Document Reviewed: 08/22/2018 [employer] Patient Education 2020 [employer]. 11/14/2021 11:43:25 Benign Prostatic Hyperplasia Benign Prostatic [...] urethra. Follow these instructions at home: Take gens-ibq-werdegt and prescription medicines only as told by [...] 08/06/2006 Document Revised: 07/01/2019 Document Reviewed: 09/10/2017 [employer] Patient Education 2020 [employer]. Follow Up Care 08/01/2021 12:20:44 With:ELISA HALEY, Mir Bender, URL Address: [facility] [address] , [place] [address]- [phone] When:11/14/2022 Comments:1 year fu [facility] Evaluation + Plan note Note Date & Type Note Facility Evaluation + Plan note Future Appointments Appointment Date:11/17/2022 10:15:00 AM Scheduled Provider:Mir RING MD Location:[facility] Appointment Type:URO Office Visit [facility] Evaluation + Plan note Note Date & Type Note Facility Evaluation + Plan note Future Appointments Appointment Date:03/19/2023 10:15:00 AM Scheduled Provider:Mir RING MD Location:[facility] Appointment Type:URO Office Visit [facility] Evaluation + Plan note Note Date & Type Note Facility Evaluation + Plan note Future Appointments Appointment Date:03/21/2024 09:30:00 AM Scheduled Provider:Mir RING MD Location:[facility] Appointment Type:URO Office Visit [facility] [employer] [facility] course Narrative Note Date & Type Note Facility Hospital course Narrative No data available for this section [facility] [employer] Progress note Note Date & Type Note Facility Progress note No data available for this section [facility] [place] [employer] Summary Purpose Family History No Family History [...] section and content) DATE CREATED AUTHOR 08/10/2018 [facility] DATE CREATED AUTHOR AUTHOR'S ORGANIZ ATION 08/12/2018 [facility] DATE CREATED AUTHOR AUTHOR'S ORGANIZ ATION 08/27/2021 [facility] DATE CREATED AUTHOR AUTHOR'S ORGANIZ ATION 09/20/[address] [place] [address] DATE CREATED AUTHOR AUTHOR'S ORGANIZ ATION 10/31/2022 [facility] DATE CREATED AUTHOR AUTHOR'S ORGANIZ ATION 03/20/2023 [facility] FOR RECORDS PERTAINING TO PATIENTS WHO ARE [...] BE BASED ON THE PRIMARY CLINICAL RECORDS. [employer] provides no warranty or guarantee of the accuracy or completeness of information in this document.
[2024-03-12 09:03] LABS: Basophils Absolute Auto 0.1 10^3/uL (0.0-0.1); Basophils Percent Auto 1.1 % (0.2-2.0); Eosinophils Absolute Auto 0.3 10^3/uL (0.0-0.7); Hematocrit 39.6 % (42.0-54.0); Hemoglobin 13.1 g/dL (14.0-18.0); Immature Granulocytes Abs Auto 0.01 10^3/uL (0.00-0.03); Immature Granulocytes Pct Auto 0.2 % (0.0-0.5); Lymphocytes Absolute Auto 1.6 10^3/uL (1.2-3.8); Lymphocytes Percent Auto 26.4 % (20.5-60.0); Mean Corpuscular HGB Conc 33.1 g/dL (29.9-35.2); Mean Corpuscular Hemoglobin 33.7 pg (25.9-34.0); Mean Corpuscular Volume 101.8 fL (80.0-94.0); Mean Platelet Volume 10.1 fL (9.5-13.5); Monocytes Absolute Auto 0.4 10^3/uL (0.3-0.8); Monocytes Percent Auto 6.5 % (1.7-12.0); Neutrophils Absolute Auto 3.8 10^3/uL (1.4-6.5); Neutrophils Percent Auto 61.8 % (43.0-75.0); Platelet Count 167 10^3/uL (150-450); Red Blood Count 3.89 10^6/uL (4.70-6.10); Red Cell Distribution Width 13.2 % (11.0-15.0); White Blood Count 6.2 10^3/uL (4.0-11.0)
[2024-03-12 09:26] LABS: Anion Gap 10.6; Calcium 8.4 mg/dL (8.5-10.1); Chloride 106 mmol/L (98-107); Estimated GFR (African America 49 (>=60); Estimated GFR (Non-African Ame 40 (>=60); Glucose 163 mg/dL (74-106); Potassium 3.6 mmol/L (3.5-5.1); Sodium 141 mmol/L (136-145); Uric Acid 4.8 mg/dL (3.5-7.2)
== END 2024-03-12 07:49 | disposition home or self-care (01) ==
LOC: LAB 07:48
PROVIDERS: PCP Family Medicine; Visit Provider Family Medicine
DX: I10 Essential (primary) hypertension (principal)
CPT/HCPCS: 36415; 80048; 84550; 85025